=== PATIENT | female | born 1990 | race African-American/Black ===

== ENCOUNTER 2020-09-12 15:58 | Outpatient (REF) | payer MEDICAID, SELFPAY ==
--- NOTE | 2020-09-12 | PFT_ITS ---
Forced vital capacity, FEV1, [id number], and MVV are all normal. Post bronchodilator therapy, no significant change noted. Total lung capacity and residual volume normal. Diffusion capacity normal. CONCLUSION: Normal pulmonary function test. MD APRIL Quigley/MODL / [id number]
== END 2020-09-12 15:59 | disposition home or self-care (01) ==
LOC: HO.RESP 15:58
PROVIDERS: Visit Provider Internal Medicine
DX: J45.909 Unspecified asthma, uncomplicated (principal)
CPT/HCPCS: 94060; 94727; 94729

== ENCOUNTER → 2020-09-25 15:54 | Outpatient (BNVA) | payer MEDICAID, SELFPAY | PROVIDERS: PCP Family Medicine; Visit Provider Internal Medicine | DX: J30.9 Allergic rhinitis, unspecified (principal); J45.909 Unspecified asthma, uncomplicated; G47.33 Obstructive sleep apnea (adult) (pediatric) | CPT/HCPCS: 99212 ==

== ENCOUNTER 2020-09-25 16:30 | Outpatient (REF) | payer MEDICAID, SELFPAY | END 2020-09-25 16:31 | disposition home or self-care (01) | LOC: HO.LAB 16:30 | PROVIDERS: Visit Provider Internal Medicine | DX: Z20.828 Contact with and (suspected) exposure to other viral communicable diseases (principal) | CPT/HCPCS: C9803; U0003 ==

== ENCOUNTER 2020-11-20 14:21 | Emergency (ER) | payer MEDICAID, SELFPAY ==
[2020-11-20 14:33] VITALS: BP 117/72; PULSE 96; RESP 20; TEMP 36.9; O2SAT 97; BMI 38.4
--- NOTE | 2020-11-20 14:46 | XR_ITS ---
EXAMINATION: XR CHEST CLINICAL INFORMATION: Cough, fever COMPARISON: None TECHNIQUE: Portable upright AP view of the chest was obtained. FINDINGS: There is subtle coarsening bronchiolar markings. Questionable small groundglass opacity left perihilar region. Findings may be related to early atypical or viral process. There is no lobar or segmental airspace consolidation or effusion. No volume loss. Costophrenic sulci are well-defined. The heart is normal in size. The hilar and mediastinal contours are unremarkable. XR/XR chest 1V IMPRESSION: Coarsening bronchiolar markings with questionable small groundglass opacity left perihilar region. Findings may be related to early atypical pneumonia or viral process.
--- NOTE | 2020-11-20 15:14 | PC.NURSE ---
PT SITTING AWAITING COVID RESULTS SHE HAD HER CXR NO RESP DISTRESS NOTED. COUGH
--- NOTE | 2020-11-20 15:23 | ED_ITS ---
HPI - General Adult General Chief complaint: General Medical <Rajat Arndt NP - Last Filed: 11/20/20 16:18> Stated complaint: sob <Rajat Arndt NP - Last Filed: 11/20/20 16:18> Time Seen by Provider: 11/20/20 14:46 <Rajat Arndt NP - Last Filed: 11/20/20 16:18> Source: patient <Rajat Arndt NP - Last Filed: 11/20/20 16:18> Mode of arrival: ambulatory <Rajat Arndt NP - Last Filed: 11/20/20 16:18> Limitations: no limitations <Rajat Arndt NP - Last Filed: 11/20/20 16:18> History of Present Illness HPI narrative: 30-year-old female who reports history of asthma, obstructive sleep apnea and seasonal allergies presenting with 3 or 4 days of body aches, cough myalgias states she called her primary care doctor and states has an appointment tomorrow but advised that she needs to come here she could come. States her most bothersome symptom is the body aches. <Rajat Arndt NP - Last Filed: 11/20/20 16:18> Onset (ago): day(s) <Rajat Arndt NP - Last Filed: 11/20/20 16:18> Severity: moderate <Rajat Arndt NP - Last Filed: 11/20/20 16:18> Quality: aching <Rajat Arndt NP - Last Filed: 11/20/20 16:18> Relieving factors: none <Rajat Arndt NP - Last Filed: 11/20/20 16:18> Exacerbating factors: none <Rajat Arndt NP - Last Filed: 11/20/20 16:18> Associated symptoms: cough and fever/chills <Rajat Arndt NP - Last Filed: 11/20/20 16:18> Treatments prior to arrival: none <Rajat Arndt NP - Last Filed: 11/20/20 16:18> Related Data Home medications: Home Medications Medication Instructions Recorded Confirmed clonidine HCl 0.1 mg tablet 0.1 mg PO TID 09/25/20 11/20/20 fluticasone furoate 200 1 inh INHALATION DAILY 09/25/20 11/20/20 mcg-vilanterol 25 mcg/dose inhalation powder hydroxyzine HCl 25 mg tablet 25 mg PO BEDTIME 09/25/20 11/20/20 lurasidone 60 mg tablet 60 mg PO DAILY 09/25/20 11/20/20 methylphenidate HCl 27 mg 27 mg PO DAILY 09/25/20 11/20/20 tablet,extended release 24 hr Previous Rx's Medication Instructions Recorded albuterol sulfate [ProAir HFA] 2 puff INHALATION Q4-6H PRN #8.5 g 11/20/20 azithromycin [Zithromax Z-Yogesh] 250 mg PO DAILY 5 Days #6 tab 11/20/20 doxycycline monohydrate 100 mg PO BID 10 Days #20 cap 11/20/20 prednisone 60 mg PO DAILY 5 Days #15 tab 11/20/20 tolterodine 2 mg capsule,extended 2 mg PO DAILY 30 Days #30 cap 11/21/20 release 24 hr <Rajat Arndt NP - Last Filed: 11/20/20 16:18> Allergies/adverse reactions: Allergies Allergy/AdvReac Type Severity Reaction Status Date / Time amoxicillin [AMOXICILLIN] Allergy Unknown VOMITING Verified 11/21/20 13:41 pollen extracts [POLLEN] Allergy Unknown ITCHY EYES Verified 11/21/20 13:41 <Rajat Arndt NP - Last Filed: 11/20/20 16:18> Review of Systems Review of Systems: Constitutional: No Weight loss, No Fever,+ Chills, No Night Sweats, No Fatigue, No Malaise ENT/Mouth: No Hearing loss, No Ear Pain, + Nasal Congestion, No Sinus Pain, No Hoarseness, No sore throat, No Swallowing Difficulty Eyes: No Eye Pain, No Swelling, No Redness, No Foreign Body, No Discharge, No Vision Changes Cardiovascular: No Chest Pain, No SOB, No Dyspnea on Exertion, No Orthopnea, No Edema, No Palpitations Respiratory: + Cough, No Sputum, No Wheezing, No Dyspnea Gastrointestinal: No Nausea, No Vomiting, No Diarrhea, No Constipation, No abdominal Pain, No Hematochezia, No Melena Genitourinary: no irregular bleeding, No Dysuria, No Urinary Frequency, No Hematuria, No Urinary Incontinence, No Urgency, No Flank Pain Musculoskeletal: No joint pain, + Myalgias, No Joint Swelling Skin: No Skin Lesions, No rash Neuro: No Weakness, No Numbness, No Paresthesias, No Loss of Consciousness, No Dizziness, No Headache Psych: No Social Issues Heme/Lymph: No Bruising, No Bleeding,No Lymphadenopathy Endocrine: No Polyuria, No Polydipsia, No Temperature Intolerance <Rajat Arndt NP - Last Filed: 11/20/20 16:18> Yes all other systems are reviewed and are negative <Rajat Arndt NP - Last Filed: 11/20/20 16:18> [facility] Past Medical History Medical History: Medical History (Updated 11/21/20 @ 14:02 by Andrea Gupta MD) Allergic rhinosinusitis Asthma DAX (obstructive sleep apnea) <Rajat Arndt NP - Last Filed: 11/20/20 16:18> Social History Social History: Social History Smoking Status: Unknown if ever smoked <Rajat Arndt NP - Last Filed: 11/20/20 16:18> Physical Exam Vital Signs: Vital Signs: Last Vital Signs Temp 100.2 F 11/20/20 15:40 Pulse 96 11/20/20 15:40 Resp 20 11/20/20 15:40 BP 123/78 11/20/20 15:40 Pulse Ox 96 11/20/20 15:40 Body Mass Index 38.4 Reviewed <Rajat Arndt NP - Last Filed: 11/20/20 16:18> Vital Signs: Last Vital Signs Temp 100.2 F 11/20/20 15:40 Pulse 96 11/20/20 15:40 Resp 20 11/20/20 15:40 BP 123/78 11/20/20 15:40 Pulse Ox 96 11/20/20 15:40 Body Mass Index 38.4 <Jay Corneluis MD - Last Filed: 11/27/20 09:22> Const: General: cooperative and healthy appearing; No acute distress or intoxicated appearing <Rajat Arndt NP - Last Filed: 11/20/20 16:18> Nutritional Appearance: average body habitus <Rajat Arndt NP - Last Filed: 11/20/20 16:18> Orientation/consciousness: patient oriented x3 <Rajat Arndt NP - Last Filed: 11/20/20 16:18> HENMT: Head: Yes normal to inspection <[facility] Arndt, - Last Filed: 11/20/20 16:18> Ears: hearing grossly normal bilaterally <[facility] Arndt, - Last Filed: 11/20/20 16:18> Eyes: General: appearance normal, both eyes and all related structures <[facility] Hair - Last Filed: 11/20/20 16:18> Visual De La Torre: normal visual de la torre by confrontation <[facility] Hair - Last Filed: 11/20/20 16:18> Neck: Neck: Yes normal visual inspection, No positive Brudzinski's sign, No positive Kernig's sign and No tender <[facility] Hair - Last Filed: 11/20/20 16:18> Thyroid: Thyroid normal <[facility] Hair - Last Filed: 11/20/20 16:18> Chest: Chest palpation & inspection: normal inspection of the chest <[facility] Hiar - Last Filed: 11/20/20 16:18> Resp: Effort & Inspection: normal respiratory effort <[facility] Hair - Last Filed: 11/20/20 16:18> Auscultation: clear to auscultation bilaterally <[facility] Hair - Last Filed: 11/20/20 16:18> Cardio: Jugular venous distension: no JVD <[facility] Hair - Last Filed: 11/20/20 16:18> Rhythm: regular rhythm <[facility] Hair - Last Filed: 11/20/20 16:18> Heart sounds: S1 normal heart sound present and S2 normal heart sound present <[facility] Hair - Last Filed: 11/20/20 16:18> GI: Inspection: Yes normal to inspection <[facility] Hair - Last Filed: 11/20/20 16:18> Percussion: Yes normal to percussion <[facility] Hair - Last Filed: 11/20/20 16:18> Auscultation: normal bowel sounds <[facility] Hair - Last Filed: 11/20/20 16:18> : General: Yes no CVA tenderness <[facility] PAWEL Arndt - Last Filed: 11/20/20 16:18> Back/Spine/Pelvis: Back: no CVA tenderness <Rajatreilly Arndt NP - Last Filed: 11/20/20 16:18> Skin: General skin exam: no rashes or lesions noted <Rajat VegaPAWEL montelongo - Last Filed: 11/20/20 16:18> Neuro: General: patient oriented x3 <Rajatreilly Arndt NP - Last Filed: 11/20/20 16:18> Extrem: General: Yes normal to inspection <Rajat ArndtPAWEL montelongo - Last Filed: 11/20/20 16:18> Course Course Course Narrative: COVID POSITIVE CHEST X-RAY FINDINGS CONSISTENT WITH THIS. SHE IS HEMODYNAMICALLY STABLE. AFEBRILE, NON TACHY, PULSE OX 98%. GIVEN HER UNDERLYING COMORBIDITIES WILL DISCHARGE HOME WITH AZITHROMYCIN/DOXY AND PREDNISONE WITH CLEAR RETURN FOLLOW-UP INSTRUCTIONS. SHE IS COMFORTABLE PLAN. SHE AMBULATED WITHOUT ANY EVIDENCE OF HYPOXIA OR SHORTNESS OF BREATH. CLEAR PRECAUTION RETURN FOLLOW-UP INSTRUCTIONS PROVIDED. [facility]/CDC GUIDELINES FOR QUARANTINE ALSO PROVIDED. STABLE FOR DISCHARGE. <Rajatreilly Arndt NP - Last Filed: 11/20/20 16:18> I have reviewed the chart <Jay Cornelius MD - Last Filed: 11/27/20 09:22> Medical Decision Making Lab Data Labs: Lab Results 11/20/20 Range/Units 14:50 Coronavirus (PCR) POSITIVE A (Negative) Influenza Type A (PCR) NEGATIVE (Negative) Influenza Type B (PCR) NEGATIVE (Negative) RSV RNA Qual (PCR) NEGATIVE (Negative) <Rajatreilly Arndt NP - Last Filed: 11/20/20 16:18> Lab Results 11/20/20 Range/Units 14:50 Coronavirus (PCR) POSITIVE A (Negative) Influenza Type A (PCR) NEGATIVE (Negative) Influenza Type B (PCR) NEGATIVE (Negative) RSV RNA Qual (PCR) NEGATIVE (Negative) <Jay Cornelius MD - Last Filed: 11/27/20 09:22> Imaging Data Chest x-ray: Radiologist's impression: [address] [id number] ReportSigned Patient: Mckenzie RuelasMR#: [id number]: 1990Acct:[id number]/Sex: 30 / FADM Date: 11/20/20Loc: [email or web address].EDAttending Dr: Ordering Physician: Rajat Arndt NP Date of Service: 11/20/20 Procedure(s): XR chest 1V Accession Number(s): [id number] cc: Rajat Arndt NP~ EXAMINATION: XR CHEST CLINICAL INFORMATION: Cough, fever COMPARISON: None TECHNIQUE: Portable upright AP view of the chest was obtained. FINDINGS: There is subtle coarsening bronchiolar markings. Questionable small groundglass opacity left perihilar region. Findings may be related to early atypical or viral process. There is no lobar or segmental airspace consolidation or effusion. No volume loss. Costophrenic sulci are well-defined. The heart is normal in size. The hilar and mediastinal contours are unremarkable. XR/XR chest 1V IMPRESSION: Coarsening bronchiolar markings with questionable small groundglass opacity left perihilar region. Findings may be related to early atypical pneumonia or viral process. Dictated By:JAY ROACH MDSigned By:<Electronically signed by JYA ROACH MD in OV>11/20/20 1504 DD/ 1446TD/TT: Social Work Coordinator: VIVIAN <Rajat Arndt NP - Last Filed: 11/20/20 16:18> Discharge Plan Discharge Clinical Impression: COVID-19 <Rajat Arndt NP - Last Filed: 11/20/20 16:18> Patient Disposition: Home, Self-Care <Rajat Arndt NP - Last Filed: 11/20/20 16:18> Instructions: COVID-19 (Coronavirus Disease 2019) (ED) <Rajat Arndt NP - Last Filed: 11/20/20 16:18> Additional Instructions: Drink plenty of fluids Take medication prescribed Self-isolation Social distancing Quarantine for 14 days Return if any concerns or worsening symptoms Thank you <Rajat Arndt NP - Last Filed: 11/20/20 16:18> Prescriptions: New azithromycin [Zithromax Z-Yogesh] 250 mg tablet 250 mg PO DAILY 5 Days Qty: 6 RF: 0 doxycycline monohydrate 100 mg capsule 100 mg PO BID 10 Days Qty: 20 RF: 0 prednisone 20 mg tablet 60 mg PO DAILY 5 Days Qty: 15 RF: 0 albuterol sulfate [ProAir HFA] 90 mcg/actuation HFA aerosol inhaler 2 puff inhalation Q4-6H PRN (Reason: shortness of breath or wheezing) Qty: 8.5 RF: 0 No Action Breo Ellipta 200-25 mcg/dose blister with device 1 inh inhalation DAILY RF: 0 clonidine HCl 0.1 mg tablet 0.1 mg PO TID RF: 0 hydroxyzine HCl 25 mg tablet 25 mg PO BEDTIME RF: 0 methylphenidate HCl [Concerta] 27 mg tablet extended release 24hr 27 mg PO DAILY RF: 0 Latuda 60 mg tablet 60 mg PO DAILY RF: 0 tolterodine 2 mg capsule,extended release 24hr 2 mg PO DAILY 30 Days Qty: 30 RF: 0 <Rajat Arndt NP - Last Filed: 11/20/20 16:18> Referrals: Betsy Joshi MD [Primary Care Provider] - 5 days (PHONE VISIT) <Rajat Arndt NP - Last Filed: 11/20/20 16:18> Interventions: ED Discharge Assessment Last Done: 11/20/20 16:32 <Rajat Arndt NP - Last Filed: 11/20/20 16:18> Discharge Date/Time: 11/20/20 16:33 <Rajat Arndt NP - Last Filed: 11/20/20 16:18>
[2020-11-20 15:40] VITALS: BP 123/78; PULSE 96; RESP 20; TEMP 37.9; O2SAT 96
[2020-11-20 15:51] LABS: Influenza A PCR NEGATIVE (Negative); Influenza B PCR NEGATIVE (Negative); Resp Syncy Virus RNA Qual PCR NEGATIVE (Negative); SARS COV2 PCR INHOUSE POSITIVE (Negative)
[2020-11-20] MEDS: predniSONE 20 MG TABLET 60 MG PO (16:28)
[2020-11-20] MEDS: Acetaminophen 325 MG TABLET 975 MG PO (16:28)
== END 2020-11-20 16:33 | disposition home or self-care (01) ==
PROVIDERS: Nurse Practitioner Primary Care; Emergency Provider Emergency Medicine; PCP Family Medicine
DX: U07.1 COVID-19 (principal); R06.02 Shortness of breath; M79.10 Myalgia, unspecified site; R50.9 Fever, unspecified; Z79.899 Other long term (current) drug therapy
CPT/HCPCS: 0241U; 36415; 71045; 99283; 99284

== ENCOUNTER → 2020-11-21 13:40 | Outpatient (BNVA) | payer MEDICAID, SELFPAY | PROVIDERS: PCP Family Medicine; Visit Provider Urology ==

== ENCOUNTER → 2020-12-17 12:13 | Outpatient (BNVA) | payer MEDICAID, SELFPAY | PROVIDERS: PCP Family Medicine; Visit Provider Urology ==

== ENCOUNTER → 2021-01-15 13:36 | Outpatient (BNVA) | payer MEDICAID, SELFPAY | PROVIDERS: PCP Emergency Medicine; Visit Provider Urology ==

== ENCOUNTER 2021-02-25 17:43 | Emergency (ER) | payer MEDICAID, SELFPAY ==
--- NOTE | ~2021-02-25 | XR_ITS ---
EXAMINATION: XR RIBS, RIGHT CLINICAL INFORMATION: Pain COMPARISON: Chest x-ray 11/20/2020 TECHNIQUE: 3 views of the right ribs were obtained. FINDINGS: Cardiac silhouette is normal in size. The lungs are well aerated. There is no lobar consolidation. No pleural effusion or pneumothorax. Mild dextroscoliosis of the thoracic spine. No right-sided rib fracture appreciated. XR/XR ribs RT min 3V w CXR1V IMPRESSION: No right-sided rib fracture.
[2021-02-25 17:56] VITALS: BP 106/66; PULSE 77; RESP 18; TEMP 36.2; O2SAT 97; BMI 38.9
--- NOTE | 2021-02-25 18:06 | ED_ITS ---
HPI - General Adult General Chief complaint: General Medical Stated complaint: R Rib/Shoulder Pain No Injury Time Seen by Provider: 02/25/21 18:06 Source: patient Mode of arrival: ambulatory Limitations: no limitations History of Present Illness HPI narrative: States ache like ?rib pain? for the past 2 days hurts with certain movements and palpation. has had similar episodes in the past and was told that is muscle related. She admits that she is overweight and has large breasts which are contributing factor to her symptoms. She denies any shortness of breath, control use, , leg swelling or injury. Onset (ago): day(s) Radiation: non-radiation Severity: moderate Quality: aching Relieving factors: immobilization Exacerbating factors: movement Associated symptoms: denies other symptoms Treatments prior to arrival: none Related Data Home Medications Medication Instructions Recorded Confirmed clonidine HCl 0.1 mg tablet 0.1 mg PO TID 09/25/20 11/20/20 fluticasone furoate 200 1 inh INHALATION DAILY 09/25/20 11/20/20 mcg-vilanterol 25 mcg/dose inhalation powder hydroxyzine HCl 25 mg tablet 25 mg PO BEDTIME 09/25/20 11/20/20 lurasidone 60 mg tablet 60 mg PO DAILY 09/25/20 11/20/20 methylphenidate HCl 27 mg 27 mg PO DAILY 09/25/20 11/20/20 tablet,extended release 24 hr Previous Rx's Medication Instructions Recorded albuterol sulfate [ProAir HFA] 2 puff INHALATION Q4-6H PRN #8.5 g 11/20/20 azithromycin [Zithromax Z-Yogesh] 250 mg PO DAILY 5 Days #6 tab 11/20/20 doxycycline monohydrate 100 mg PO BID 10 Days #20 cap 11/20/20 prednisone 60 mg PO DAILY 5 Days #15 tab 11/20/20 tolterodine 4 mg capsule,extended 4 mg PO DAILY 90 Days #90 cap 01/15/21 release 24 hr cyclobenzaprine 5 mg PO TID PRN #14 tab 02/25/21 ibuprofen 800 mg PO Q8H PRN #30 tab 02/25/21 lidocaine 1 patch TOPICAL Q24H PRN #15 ea 02/25/21 Allergies Allergy/AdvReac Type Severity Reaction Status Date / Time amoxicillin [AMOXICILLIN] Allergy Unknown VOMITING Verified 02/25/21 17:56 pollen extracts [POLLEN] Allergy Unknown ITCHY EYES Verified 02/25/21 17:56 Review of Systems Review of Systems: Constitutional: No Weight loss, No Fever, No Chills, No Night Sweats, No Fatigue, No Malaise ENT/Mouth: No Hearing loss, No Ear Pain, No Nasal Congestion, No Sinus Pain, No Hoarseness, No sore throat, No Rhinorrhea, No Swallowing Difficulty Eyes: No Eye Pain, No Swelling, No Redness, No Foreign Body, No Discharge, No Vision Changes Cardiovascular: No SOB, No Dyspnea on Exertion, No Orthopnea, No Edema, No Palpitations Respiratory: No Cough, No Sputum, No Wheezing, No Smoke Exposure, No Dyspnea Gastrointestinal: No Nausea, No Vomiting, No Diarrhea, No Constipation, No abdominal Pain, No Hematochezia, No Melena Genitourinary: no irregular bleeding, No Dysuria, No Urinary Frequency, No Hematuria, No Urinary Incontinence, No Urgency, No Flank Pain, No Urinary Flow Changes, No Hesitancy Musculoskeletal: No joint pain, No Myalgias, No Joint Swelling, as read per HPI Skin: No Skin Lesions, No rash Neuro: No Weakness, No Numbness, No Paresthesias, No Loss of Consciousness, No Dizziness, No Headache Psych: No Anxiety/Panic, No Depression, No SI/HI/AH/VH, No Social Issues Heme/Lymph: No Bruising, No Bleeding,No Lymphadenopathy Endocrine: No Polyuria, No Polydipsia, No Temperature Intolerance Yes all other systems are reviewed and are negative [facility] Past Medical History Medical History Allergic rhinosinusitis Asthma DAX (obstructive sleep apnea) Social History Social History Alcohol intake: never Smoking Status: Unknown if ever smoked Smoked in Last 30 Days: No Use of substances other than those prescribed or required for medical reasons: No Any prior treatment program specific to substance use: No Advance Directives: No Advance Directives Information Provided: Yes Physical Exam Vital Signs: Vital Signs: Last Vital Signs Temp 97.2 F 02/25/21 17:56 Pulse 77 02/25/21 17:56 Resp 18 02/25/21 17:56 BP 106/66 02/25/21 17:56 Pulse Ox 97 05/04/21 17:56 Body Mass Index 38.9 Reviewed Const: General: cooperative and healthy appearing; No acute distress or i ntoxicated appearing Nutritional Appearance: average body habitus Orientation/consciousness: patient oriented x3 HENMT: Head: Yes normal to inspection Ears: hearing grossly normal bilaterally Eyes: General: appearance normal, both eyes and all related structures Visual De La Torre: normal visual de la torre by confrontation Neck: Neck: Yes normal visual inspection, No positive Brudzinski's sign, No positive Kernig's sign and No tender Thyroid: Thyroid normal Chest: Chest palpation & inspection: normal inspection of the chest Chest/axillae images: 1. Pain with tender palpation. No ecchymosis, rash, cre pitus. Pain alleviated with rest and elicited with movement. Resp: Effort & Inspection: normal respiratory effort Cardio: Jugular venous distension: no JVD GI: Inspection: Yes normal to inspection Percussion: Yes normal to percussion Auscultation: normal bowel sounds : General: Yes no CVA tenderness Back/Spine/Pelvis: Back: no CVA tenderness Skin: General skin exam: no rashes or lesions noted Neuro: General: patient oriented x3 Extrem: General: Yes normal to inspection Course Course Course Narrative: Assessment and plan; findings consistent with acute costochondritis x-ray without acute findings EKG no specific changes feels better after Toradol and lidocaine patch will discharge home with short course NSAID, lidocaine patch and Flexeril. She does have a demanding job she does a lot a lifting and moving is requesting note for this. She will follow-up with her primary care doctor. Medical Decision Making Imaging Data Chest x-ray: Radiologist's impression: [address] [id number] ReportSigned Patient: Mckenzie RuelasMR#: [id number]: 1990Acct:[id number]/Sex: 30 / FADM Date: 02/25/21Loc: [address] Dr: Ordering Physician: Rajat Arndt NP Date of Service: 02/25/21 Procedure(s): XR ribs RT min 3V w CXR1V Accession Number(s): [id number] cc: Arndt,Rajat [employer]ER~ EXAMINATION: XR RIBS, RIGHT CLINICAL INFORMATION: Pain COMPARISON: Chest x-ray 11/20/2020 TECHNIQUE: 3 views of the right ribs were obtained. FINDINGS: Cardiac silhouette is normal in size. The lungs are well aerated. There is no lobar consolidation. No pleural effusion or pneumothorax. Mild dextroscoliosis of the thoracic spine. No right-sided rib fracture appreciated. XR/XR ribs RT min 3V w CXR1V IMPRESSION: No right-sided rib fracture. Dictated By:NAHID HUGHES MDSigned By:<Electronically signed by NAHID HUGHES MD in [place]>02/25/211856 DD/ TD/TT: Structural Architect: ECG Data Interpretation: Normal sinus rhythm with sinus arrhythmia T wave abnormality, consider anterior ischemia Abnormal ECG When compared with ECG of 11-APR-2020 13:31, No significant change was found Discharge Plan Discharge Clinical Impression: Muscle strain Patient Disposition: Home, Self-Care Instructions: Costochondritis (ED) Additional Instructions: Gentle stretching Wear supportive bra Warm compresses Take medication prescribed Return if any fever, cough, worsening chest pain, shortness of breath, lower extremity swelling, abdominal pain, nausea, vomiting, headache or dizziness. Otherwise follow-up with primary care to discuss Thank you Prescriptions: New lidocaine 4 % adhesive patch,medicated 1 patch topical Q24H PRN (Reason: pain) Qty: 15 RF: 0 ibuprofen 800 mg tablet 800 mg PO Q8H PRN (Reason: pain) Qty: 30 RF: 0 cyclobenzaprine 5 mg tablet 5 mg PO TID PRN (Reason: muscle spasm) Qty: 14 RF: 0 No Action azithromycin [Zithromax Z-Yogesh] 250 mg tablet 250 mg PO DAILY 5 Days Qty: 6 RF: 0 doxycycline monohydrate 100 mg capsule 100 mg PO BID 10 Days Qty: 20 RF: 0 prednisone 20 mg tablet 60 mg PO DAILY 5 Days Qty: 15 RF: 0 albuterol sulfate [ProAir HFA] 90 mcg/actuation HFA aerosol inhaler 2 puff inhalation Q4-6H PRN (Reason: shortness of breath or wheezing) Qty: 8.5 RF: 0 Breo Ellipta 200-25 mcg/dose blister with device 1 inh inhalation DAILY RF: 0 clonidine HCl 0.1 mg tablet 0.1 mg PO TID RF: 0 hydroxyzine HCl 25 mg tablet 25 mg PO BEDTIME RF: 0 methylphenidate HCl [Concerta] 27 mg tablet extended release 24hr 27 mg PO DAILY RF: 0 Latuda 60 mg tablet 60 mg PO DAILY RF: 0 tolterodine 4 mg capsule,extended release 24hr 4 mg PO DAILY 90 Days Qty: 90 RF: 1 Referrals: Betsy Joshi MD [Primary Care Provider] - 1 week Stand Alone Forms: Work/School Release
--- NOTE | 2021-02-25 18:11 | ECG_ITS ---
Test Reason : Right-sided upper chest/posterior neck pain Blood Pressure : / mmHG Vent. Rate : 061 BPM Atrial Rate : 061 BPM P-R Int : 140 ms QRS Dur : 100 ms QT Int : 426 ms P-R-T Axes : 049 015 009 degrees QTc Int : 428 ms Normal sinus rhythm with sinus arrhythmia T wave abnormality, consider anterior ischemia Abnormal ECG When compared with ECG of 11-APR-2020 13:31, No significant change was found Referred By: Rajat Arndt Electronically Signed By:GABE SOUZA
[2021-02-25] MEDS: Lidocaine 4 % Patch ADH..PATCH 1 PATCH TRANSDERMA (18:28)
[2021-02-25] MEDS: Ketorolac Tromethamine 30 MG/ML VIAL IM (18:29)
== END 2021-02-25 19:30 | disposition home or self-care (01) ==
PROVIDERS: Emergency Provider Internal Medicine; PCP Family Medicine
DX: S29.011A Strain of muscle and tendon of front wall of thorax, initial encounter (principal); X58.XXXA Exposure to other specified factors, initial encounter; Y93.9 Activity, unspecified; Y92.9 Unspecified place or not applicable; Y99.9 Unspecified external cause status
CPT/HCPCS: 71101; 93005; 96372; 99284; J1885

== ENCOUNTER 2021-03-10 16:26 | Outpatient (REF) | payer MEDICAID, SELFPAY ==
--- NOTE | ~2021-03-10 | XR_ITS ---
EXAMINATION: XR WRIST, RIGHT CLINICAL INFORMATION: Right wrist pain. No trauma COMPARISON: None TECHNIQUE: PA, lateral, and oblique views of the right wrist. FINDINGS: There is no visible acute fracture, dislocation or subluxation seen. The intercarpal, radiocarpal and carpometacarpal alignment is normal. The soft tissues are normal. XR/XR wrist RT min 3V IMPRESSION: Unremarkable right hand/wrist exam.
== END 2021-03-10 16:27 | disposition home or self-care (01) ==
LOC: HO.XRAY 16:26
PROVIDERS: PCP Family Medicine; Visit Provider Nurse Practitioner
DX: M25.531 Pain in right wrist (principal)
CPT/HCPCS: 73110

== ENCOUNTER 2021-07-18 17:41 | Emergency (ER) | payer MEDICAID, SELFPAY ==
--- NOTE | ~2021-07-18 | XR_ITS ---
EXAMINATION: XR CHEST CLINICAL INFORMATION: Coughing. COMPARISON: Chest radiograph dated from 11/20/2020. TECHNIQUE: AP view of the chest was obtained. FINDINGS: Normal appearance of the cardiomediastinal silhouette. There is persistent interstitial prominence with now new questionable hazy opacities in the right lower lobe. No pleural effusions or pneumothorax. No acute osseous abnormalities. XR/XR chest 1V IMPRESSION: Questionable hazy opacities in the right lung base which could be related with aspiration or pneumonia in the appropriate clinical setting. Otherwise, there is diffuse interstitial prominence not significantly changed since October 2020.
[2021-07-18 19:24] VITALS: BP 145/64; PULSE 76; RESP 16; TEMP 35.5; O2SAT 98; BMI 30.4
--- NOTE | 2021-07-18 19:56 | ED_ITS ---
HPI - Abdominal Pain General Chief Complaint: Abdominal Pain Stated Complaint: ABD PAIN Time Seen by Provider: 07/18/21 19:54 Source: patient Mode of arrival: ambulatory Limitations: no limitations History of Present Illness HPI narrative: 31 years old female came in for evaluation of abdominal pain. Abdominal pain started 2 days ago as a gradual onset, localized to the left upper abdomen/epigastric area with no radiation, described as intermittent pain, moderate 5/10, pain is worsening with food, associated with nausea and vomiting. No fever or chills. Patient was recently seen by her PCP for cough, patient recently tested negative for COVID, patient was treated for bronchitis with azithromycin/prednisone (patient still receiving a treatment). Related Data Home Medications Medication Instructions Recorded Confirmed clonidine HCl 0.1 mg tablet 0.1 mg PO TID 09/25/20 11/20/20 fluticasone furoate 200 1 inh INHALATION DAILY 09/25/20 11/20/20 mcg-vilanterol 25 mcg/dose inhalation powder (Breo Ellipta) hydroxyzine HCl 25 mg tablet 25 mg PO BEDTIME 09/25/20 11/20/20 lurasidone 60 mg tablet (Latuda) 60 mg PO DAILY 09/25/20 11/20/20 methylphenidate HCl 27 mg 27 mg PO DAILY 09/25/20 11/20/20 tablet,extended release 24 hr (Concerta) Previous Rx's Medication Instructions Recorded albuterol sulfate 90 mcg/actuation 2 puff INHALATION Q4-6H PRN #8.5 g 11/20/20 aerosol inhaler (ProAir HFA) azithromycin 250 mg tablet 250 mg PO DAILY 5 Days #6 tab 11/20/20 (Zithromax Z-Yogesh) doxycycline monohydrate 100 mg 100 mg PO BID 10 Days #20 cap 11/20/20 capsule prednisone 20 mg tablet 60 mg PO DAILY 5 Days #15 tab 11/20/20 tolterodine 4 mg capsule,extended 4 mg PO DAILY 90 Days #90 cap 01/15/21 release 24 hr cyclobenzaprine 5 mg tablet 5 mg PO TID PRN #14 tab 02/25/21 ibuprofen 800 mg tablet 800 mg PO Q8H PRN #30 tab 02/25/21 lidocaine 4 % topical patch 1 patch TOPICAL Q24H PRN #15 ea 02/25/21 azithromycin 250 mg tablet See Rx Instructions .ROUTE 07/18/21 (Zithromax Z-Yogesh) .COMPLEX #6 tab omeprazole magnesium 20 mg 20 mg PO BID #30 tab 07/18/21 tablet,delayed release (Prilosec OTC) Allergies Allergy/AdvReac Type Severity Reaction Status Date / Time amoxicillin [AMOXICILLIN] Allergy Unknown VOMITING Verified 02/25/21 17:56 pollen extracts [POLLEN] Allergy Unknown ITCHY EYES Verified 02/25/21 17:56 Review of Systems Review of Systems All other systems are reviewed and are negative Constitutional: Reports as per HPI and Reports no additional constitutional complaints Eyes: Reports as per HPI and Reports no additional eye complaints Reports system reviewed and no additional complaints, except as documented Cardiovascular: Reports as per HPI and Reports no additional cardiovascular complaints Respiratory: Reports as per HPI and Reports no additional respiratory complaints Gastrointestinal: Reports as per HPI and Reports no additional gastrointestinal complaints Genitourinary: Reports no additional female genitourinary complaints Musculoskeletal: Reports no additional musculoskeletal complaints Skin/Breast: Reports system reviewed and no additional complaints, except as docu Psychiatric: Reports no additional psychiatric complaints Endocrine: Reports no additional endocrine complaints Hematologic/Lymphatic: Reports no additional hematologic/lymphatic complaints Allergic/Immunologic: Reports no additional allergic/immunologic complaints Reports system reviewed and no additional complaints, except as documented and Reports Abnormal speech present Physical Exam Vital Signs: Vital Signs: Last Vital Signs Temp 98.5 F 07/18/21 21:26 Pulse 60 07/18/21 21:26 Resp 18 07/18/21 21:26 BP 132/91 H 07/18/21 21:26 Pulse Ox 97 07/18/21 21:26 Body Mass Index 30.4 Course Course Course Narrative: Assessment and plan. Patient presented with coughing was diagnosed by her primary doctor with bronchitis patient was put on azithromycin and prednisone, chest x-ray today showed small possible right lung pneumonia. Patient still taking azithromycin will add another course of azithromycin. Abdominal pain which is likely secondary to gastritis, patient is feeling better, feels hungry with good appetite, able to tolerate p.o. intake. Will discharge the patient with follow-up with PCP. MDM - Abdominal Pain Lab Data Attestation: I reviewed the patient's lab results. Result diagrams: 07/18/21 20:16 07/18/21 20:16 Labs: Lab Results 09/24/21 09/24/21 09/24/21 Range/Units 20:15 20:16 20:16 WBC 11.9 H (4.8-10.8) X10*3/uL RBC 4.75 (4.20-5.50) X10*6/uL Hgb 14.9 (12.0-16.0) g/dl Hct 44.4 (37-47) % MCV 93.5 (80-98) fL MCH 31.4 (27.0-33.0) pg MCHC 33.6 (31.0-35.0) g/dl RDW 13.4 (11.0-16.0) % Plt Count 261 (160-400) X10*3/uL MPV 11.1 (9.4-12.3) fL Immature Gran % (Auto) 0.7 H (0.0-0.4) % Neut % (Auto) 74.6 H (45-73) % Lymph % (Auto) 19.2 L (20-40) % [place] % (Auto) 5.3 (2-11) % Eos % (Auto) 0.0 (0-4) % Baso % (Auto) 0.2 (0-2) % Lymph # (Auto) 2.3 (1.2-4.9) X10*3/uL [place] # (Auto) 0.6 (0.1-1.2) X10*3/uL Eos # (Auto) 0.0 (0.0-0.4) X10*3/uL Baso # (Auto) 0.0 (0.0-0.2) X10*3/uL Abs Immat Gran (auto) 0.08 H (0.00-0.03) X10*3/uL Absolute Neuts (auto) 8.9 H (2.0-8.3) X10*3/uL Absolute Nucleated RBC 0.000 (0.0-0.012) X10*3/uL Nucleated RBC % (auto) 0.0 (0.0-0.2) /100WBC Sodium 139 (135-145) mmol/L Potassium 4.5 (3.3-5.1) mmol/L Chloride 109 H (96-108) mmol/L Carbon Dioxide 19 L (22-29) mmol/L Anion Gap 16 (12-20) BUN 13 (9-16) mg/dL Creatinine 0.81 (0.5-1.4) mg/dL Estim Creat Clear Calc 116.4 Estimated GFR > 60 Random Glucose 119 H (60-115) mg/dL Calcium 9.4 (8.4-10.2) mg/dL Total Bilirubin 0.4 (0.0-1.0) mg/dL AST 20 (5-31) U/L ALT 34 H (0-31) U/L Alkaline Phosphatase 84 (39-117) U/L Total Protein 7.8 (6.5-8.0) g/dL Albumin 4.6 (3.5-5.0) g/dL Urine Color Urine Appearance Urine pH (5.0-8.0) Ur Specific [place] (1.005-1.025) Urine Protein (NEG-TRACE) MG/DL Urine Glucose (UA) (NEG) MG/DL Urine Ketones (NEG) MG/DL Urine Blood (NEG) Urine Nitrite (NEG) Ur Leukocyte Esterase (NEG) Urine RBC (0) /HPF Urine WBC (0-4) /HPF Ur Squamous Epith Cells /LPF Urine Bacteria /LPF Urine Test NEGATIVE (NEGATIVE) 07/18/21 Range/Units 20:16 WBC (4.8-10.8) X10*3/uL RBC (4.20-5.50) X10*6/uL Hgb (12.0-16.0) g/dl Hct (37-47) % MCV (80-98) fL MCH (27.0-33.0) pg MCHC (31.0-35.0) g/dl RDW (11.0-16.0) % Plt Count (160-400) X10*3/uL MPV (9.4-12.3) fL Immature Gran % (Auto) (0.0-0.4) % Neut % (Auto) (45-73) % Lymph % (Auto) (20-40) % [place] % (Auto) (2-11) % Eos % (Auto) (0-4) % Baso % (Auto) (0-2) % Lymph # (Auto) (1.2-4.9) X10*3/uL [place] # (Auto) (0.1-1.2) X10*3/uL Eos # (Auto) (0.0-0.4) X10*3/uL Baso # (Auto) (0.0-0.2) X10*3/uL Abs Immat Gran (auto) (0.00-0.03) X10*3/uL Absolute Neuts (auto) (2.0-8.3) X10*3/uL Absolute Nucleated RBC (0.0-0.012) X10*3/uL Nucleated RBC % (auto) (0.0-0.2) /100WBC Sodium (135-145) mmol/L Potassium (3.3-5.1) mmol/L Chloride (96-108) mmol/L Carbon Dioxide (22-29) mmol/L Anion Gap (12-20) BUN (9-16) mg/dL Creatinine (0.5-1.4) mg/dL Estim Creat Clear Calc Estimated GFR Random Glucose (60-115) mg/dL Calcium (8.4-10.2) mg/dL Total Bilirubin (0.0-1.0) mg/dL AST (5-31) U/L ALT (0-31) U/L Alkaline Phosphatase (39-117) U/L Total Protein (6.5-8.0) g/dL Albumin (3.5-5.0) g/dL Urine Color STRAW Urine Appearance CLEAR Urine pH 6.5 (5.0-8.0) Ur Specific [place] 1.015 (1.005-1.025) Urine Protein NEG (NEG-TRACE) MG/DL Urine Glucose (UA) NEG (NEG) MG/DL Urine Ketones NEG (NEG) MG/DL Urine Blood TRACE (NEG) Urine Nitrite NEG (NEG) Ur Leukocyte Esterase NEG (NEG) Urine RBC 1-4 (0) /HPF Urine WBC 0 (0-4) /HPF Ur Squamous Epith Cells NONE /LPF Urine Bacteria 1+ /LPF Urine Test (NEGATIVE) Imaging Data Chest x-ray: Radiologist's impression: Questionable hazy opacities in the right lung base which could be related with aspiration or pneumonia in the appropriate clinical setting. Otherwise, there is diffuse interstitial prominence not significantly changed since October 2020. ? Discharge Plan Discharge Clinical Impression: Pneumonia Qualifiers: Pneumonia type: due to unspecified organism Laterality: right Gastritis Qualifiers: Gastritis type: unspecified gastritis Chronicity: acute Gastritis bleeding: without bleeding Qualified Code(s): K29.00 - Acute gastritis without bleeding Patient Disposition: Home, Self-Care Instructions: Bacterial Pneumonia (ED) Prescriptions: New azithromycin [Zithromax Z-Yogesh] 250 mg tablet See Rx Instructions .ROUTE .COMPLEX Qty: 6 RF: 0 omeprazole magnesium [Prilosec OTC] 20 mg tablet,delayed release (DR/EC) 20 mg PO BID Qty: 30 RF: 0 No Action lidocaine 4 % adhesive patch,medicated 1 patch topical Q24H PRN (Reason: pain) Qty: 15 RF: 0 ibuprofen 800 mg tablet 800 mg PO Q8H PRN (Reason: pain) Qty: 30 RF: 0 cyclobenzaprine 5 mg tablet 5 mg PO TID PRN (Reason: muscle spasm) Qty: 14 RF: 0 azithromycin [Zithromax Z-Yogesh] 250 mg tablet 250 mg PO DAILY 5 Days Qty: 6 RF: 0 doxycycline monohydrate 100 mg capsule 100 mg PO BID 10 Days Qty: 20 RF: 0 prednisone 20 mg tablet 60 mg PO DAILY 5 Days Qty: 15 RF: 0 albuterol sulfate [ProAir HFA] 90 mcg/actuation HFA aerosol inhaler 2 puff inhalation Q4-6H PRN (Reason: shortness of breath or wheezing) Qty: 8.5 RF: 0 Breo Ellipta 200-25 mcg/dose blister with device 1 inh inhalation DAILY RF: 0 clonidine HCl 0.1 mg tablet 0.1 mg PO TID RF: 0 hydroxyzine HCl 25 mg tablet 25 mg PO BEDTIME RF: 0 methylphenidate HCl [Concerta] 27 mg tablet extended release 24hr 27 mg PO DAILY RF: 0 Latuda 60 mg tablet 60 mg PO DAILY RF: 0 tolterodine 4 mg capsule,extended release 24hr 4 mg PO DAILY 90 Days Qty: 90 RF: 1 Referrals: Physician,Unknown [Primary Care Provider] - 2 days PMF Past Medical History Medical History Allergic rhinosinusitis Asthma DAX (obstructive sleep apnea) Social History Social History Alcohol intake: never Advance Directives: No Advance Directives Information Provided: No
[2021-07-18] MEDS: Famotidine/PF 20 MG/2 ML VIAL IVPUSH (20:24)
[2021-07-18] MEDS: Magnesium Hydrox/Alum Hydrox 30 ML ORAL.SUSP PO (20:24)
[2021-07-18] MEDS: 0.9 % Sodium Chloride 1,000 ML 999 ML IVCONT (20:29)
[2021-07-18 20:32] LABS: MANUAL DIFF FLAG NO
[2021-07-18 20:33] LABS: Basophils Percent Auto 0.2 % (0-2); Hematocrit 44.4 % (37-47); Hemoglobin 14.9 g/dl (12.0-16.0); Imm Gran Abs Auto 0.08 X10*3/uL (0.00-0.03); Imm Gran Pct Auto 0.7 % (0.0-0.4); Lymphocytes Absolute Auto 2.3 X10*3/uL (1.2-4.9); Lymphocytes Percent Auto 19.2 % (20-40); Mean Corpuscular HGB Conc 33.6 g/dl (31.0-35.0); Mean Corpuscular Hemoglobin 31.4 pg (27.0-33.0); Mean Corpuscular Volume 93.5 fL (80-98); Mean Platelet Volume 11.1 fL (9.4-12.3); Monocytes Absolute Auto 0.6 X10*3/uL (0.1-1.2); Monocytes Percent Auto 5.3 % (2-11); Neutrophils Absolute Auto 8.9 X10*3/uL (2.0-8.3); Neutrophils Percent Auto 74.6 % (45-73); Platelet Count 261 X10*3/uL (160-400); Red Blood Count 4.75 X10*6/uL (4.20-5.50); Red Cell Distribution Width 13.4 % (11.0-16.0); White Blood Count 11.9 X10*3/uL (4.8-10.8)
[2021-07-18 20:34] LABS: Appearance Urine CLEAR; Color Urine STRAW; Glucose Urine UA NEG (NEG); Leukocyte Esterase Urine NEG (NEG); Nitrite Urine NEG (NEG); PH 6.5 (5.0-8.0); Specific Gravity - Urine 1.015 (1.005-1.025); UACC Culture Trigger NO; Urine Blood TRACE (NEG); Urine Ketones NEG (NEG); Urine Protein NEG (NEG-TRACE)
--- NOTE | 2021-07-18 20:34 | PC.NURSE ---
IV PLACED TO LAC, LABS DRAWN TO LAB, PT UP TO RESTROOM FOR URINE SAMPLE TO LAB. NS AND PEPCID UP AND RUNNING PER EMAR FOR ABD PAIN. PT TOOK PO MEDS ALSO WITHOUT DIFFICULTY. PT AWAIITNG FOR FURTHER ORDERS. WARM BLK TO PT AND PT WATCHING TV AT THIS TIME AND APPEARS TO BE COMFY.
[2021-07-18 20:35] LABS: UPreg QC Valid YES; Urine Pregnancy NEGATIVE (NEGATIVE)
[2021-07-18 20:43] LABS: Bacteria Urine 1+ /LPF; WBC Urine 0 /HPF (0-4)
[2021-07-18 20:55] LABS: Alanine Aminotransferase 34 U/L (0-31); Albumin Level 4.6 g/dL (3.5-5.0); Alkaline Phosphatase 84 U/L (39-117); Anion Gap 16 (12-20); Aspartate Amino Transferase 20 U/L (5-31); Bilirubin Total 0.4 mg/dL (0.0-1.0); Blood Urea Nitrogen 13 mg/dL (9-16); Calcium 9.4 mg/dL (8.4-10.2); Carbon Dioxide 19 mmol/L (22-29); Chloride 109 mmol/L (96-108); Creatinine Clr Calc Pharmacy 116.4; Estimated Glomerular Filt Rate > 60; Glucose Random 119 mg/dL (60-115); Potassium 4.5 mmol/L (3.3-5.1); Sodium 139 mmol/L (135-145); Total Protein 7.8 g/dL (6.5-8.0)
[2021-07-18 21:26] VITALS: BP 132/91; PULSE 60; RESP 18; TEMP 36.9; O2SAT 97
== END 2021-07-18 22:48 | disposition home or self-care (01) ==
PROVIDERS: Emergency Provider Emergency Medicine
DX: J15.9 Unspecified bacterial pneumonia (principal); K29.00 Acute gastritis without bleeding; R10.9 Unspecified abdominal pain; Z79.899 Other long term (current) drug therapy
CPT/HCPCS: 36415; 71045; 80053; 81001; 81025; 85025; 99284

== ENCOUNTER 2021-07-19 21:03 | Emergency (ER) | payer MEDICAID, SELFPAY ==
[2021-07-19 21:29] VITALS: BP 117/75; PULSE 84; RESP 17; TEMP 36.8; O2SAT 95; BMI 38.9
[2021-07-19 21:57] LABS: Appearance Urine CLEAR; Color Urine YELLOW; Glucose Urine UA NEG (NEG); Leukocyte Esterase Urine NEG (NEG); Nitrite Urine NEG (NEG); UACC Culture Trigger NO; Urine Blood TRACE (NEG); Urine Ketones NEG (NEG); Urine Protein NEG (NEG-TRACE)
[2021-07-19 22:42] LABS: Mucus Urine 1+ /LPF; Squamous Epithelial Cell Urine 1+ /LPF; WBC Urine 0-2 /HPF (0-4)
--- NOTE | 2021-07-20 00:04 | ED.ABDPAIN ---
HPI - Abdominal Pain General Chief Complaint: Abdominal Pain Stated Complaint: Abdominal pain Time Seen by Provider: 07/19/21 23:43 Source: patient Mode of arrival: ambulatory Limitations: no limitations History of Present Illness HPI narrative: 31-year-old female who presents emergency department for evaluation of abdominal pain. The patient states she has been having abdominal pain on off for 3 weeks. She points to her epigastric area and left upper quadrant when asked so excise the pain. She states the pain comes on only after eating food. She states that after eating she immediately gets pain that she describes as an ?indigestion, the pain will last about 1-2 hours and is 8/10 at its worst. She states that she also has associated nausea with no vomiting. She denied any change in her bowel movements, frequency urgency or dysuria. The patient does have a cough which is productive. The patient was treated recently with antibiotics and prednisone for bronchitis. The patient was seen here in the emergency department yesterday with similar complaints. A laboratory evaluation yesterday [place] [address], normal H&H, unremarkable CMP. She had a chest x-ray revealed a hazy opacity in the right lung base consistent with possible pneumonia. The patient was diagnosed with gastritis and pneumonia. She was given another course of antibiotics advised to take Prilosec for her gastritis. She states that the Prilosec is an [id number] medication and she can not afford this medication therefore she is not taking any medicines for her gastritis. Related Data Home Medications Medication Instructions Recorded Confirmed clonidine HCl 0.1 mg tablet 0.1 mg PO TID 09/25/20 11/20/20 fluticasone furoate 200 1 inh INHALATION DAILY 09/25/20 11/20/20 mcg-vilanterol 25 mcg/dose inhalation powder (Breo Ellipta) hydroxyzine HCl 25 mg tablet 25 mg PO BEDTIME 09/25/20 11/20/20 lurasidone 60 mg tablet (Latuda) 60 mg PO DAILY 09/25/20 11/20/20 methylphenidate HCl 27 mg 27 mg PO DAILY 09/25/20 11/20/20 tablet,extended release 24 hr (Concerta) Previous Rx's Medication Instructions Recorded albuterol sulfate 90 mcg/actuation 2 puff INHALATION Q4-6H PRN #8.5 g 01/27/21 aerosol inhaler (ProAir HFA) azithromycin 250 mg tablet 250 mg PO DAILY 5 Days #6 tab 11/20/20 (Zithromax Z-Yogesh) doxycycline monohydrate 100 mg 100 mg PO BID 10 Days #20 cap 11/20/20 capsule prednisone 20 mg tablet 60 mg PO DAILY 5 Days #15 tab 11/20/20 tolterodine 4 mg capsule,extended 4 mg PO DAILY 90 Days #90 cap 01/15/21 release 24 hr cyclobenzaprine 5 mg tablet 5 mg PO TID PRN #14 tab 02/25/21 ibuprofen 800 mg tablet 800 mg PO Q8H PRN #30 tab 02/25/21 lidocaine 4 % topical patch 1 patch TOPICAL Q24H PRN #15 ea 02/25/21 azithromycin 250 mg tablet See Rx Instructions .ROUTE 07/18/21 (Zithromax Z-Yogesh) .COMPLEX #6 tab omeprazole magnesium 20 mg 20 mg PO BID #30 tab 07/18/21 tablet,delayed release (Prilosec OTC) omeprazole 20 mg tablet,delayed 20 mg PO DAILY #30 tab 07/20/21 release Allergies Allergy/AdvReac Type Severity Reaction Status Date / Time amoxicillin [AMOXICILLIN] Allergy Unknown VOMITING Verified 07/19/21 21:29 pollen extracts [POLLEN] Allergy Unknown ITCHY EYES Verified 02/25/21 17:56 Review of Systems Review of Systems Yes all other systems are reviewed and are negative Physical Exam Vital Signs: Vital Signs: Last Vital Signs Temp 98.3 F 07/19/21 21:29 Pulse 84 07/19/21 21:29 Resp 17 07/19/21 21:29 BP 117/75 07/19/21 21:29 Pulse Ox 95 07/19/21 21:29 Body Mass Index 38.9 Const: General: cooperative and no acute distress Orientation/consciousness: oriented to person and oriented to place Limitations: no limitations HENMT: Head: Yes normal to inspection, Yes normocephalic and Yes atraumatic Ears: external ears normal General nose exam: Normal external nose present Face and sinus: Yes normal facial exam Mouth: Normal oral and palatal mucosa present Throat: Yes posterior oropharynx normal Eyes: General: appearance normal, both eyes and all related structures Pupils: Equal, round and reactive pupils present Neck: Neck: Yes normal visual inspection, Yes no lymphadenopathy, Yes trachea midline and Yes supple Chest: Chest palpation & inspection: normal inspection of the chest and normal palpation of entire chest wall Resp: Effort & Inspection: normal respiratory effort and able to speak in complete sentences Auscultation: clear to auscultation bilaterally Cardio: Rate: regular rate Rhythm: regular rhythm Heart sounds: S1 normal heart sound present, S2 normal heart sound present and no murmurs GI: Inspection: Yes normal to inspection Palpation (GI): Soft to palpation, Tenderness to palpation present (GI) in the epigastrum (Moderate) and in the LUQ (Mild) and no guarding Auscultation: normal bowel sounds : General: Yes no CVA tenderness Back/Spine/Pelvis: Back: no CVA tenderness Skin: General skin exam: no rashes or lesions noted Neuro: General: oriented to person and oriented to place Cranial nerves: Yes CN's II-XII intact bilaterally and Yes Equal, round and reactive pupils present Cognition (Neuro): normal cognition Motor exam (neuro): 5/5 motor strength present throughout Extrem: General: Yes normal to inspection Psych: Appearance: grossly normal Speech and movement: Normal speech and movement present Affect: normal affect Attitude: cooperative Thought process: Normal thought process present Thought content: Normal thought content present Course Course Course Narrative: 31-year-old female who presents emergency department for evaluation of intermittent epigastric and left upper quadrant abdominal pain times 2-3 weeks, the pain is related to eating food and lasts approximately 1 hour. The patient says physical examination did reveal epigastric tenderness and left upper quadrant tenderness pain the patient was seen here yesterday for similar complaints. She was diagnosed with pneumonia and gastritis but did not take Prilosec as directed. The patient's exam and presentation is consistent with gastritis. I will prescribe omeprazole 20 mg daily for 1 month. The patient will be discharged home. The patient was given verbal and printed instructions prior to discharge. The patient was advised to follow-up with her PCP in 2 days and to return to the emergency department if her symptoms get worse or if she develops any new symptoms that are concerning to her. MDM - Abdominal Pain Lab Data Labs: Lab Results 07/19/21 Range/Units 21:49 Urine Color YELLOW Urine Appearance CLEAR Urine pH 7.0 (5.0-8.0) Ur Specific [place] 1.010 (1.005-1.025) Urine Protein NEG (NEG-TRACE) MG/DL Urine Glucose (UA) NEG (NEG) MG/DL Urine Ketones NEG (NEG) MG/DL Urine Blood TRACE (NEG) Urine Nitrite NEG (NEG) Ur Leukocyte Esterase NEG (NEG) Urine RBC 1-4 (0) /HPF Urine WBC 0-2 (0-4) /HPF Ur Squamous Epith Cells 1+ /LPF Urine Bacteria NONE /LPF Urine Mucus 1+ /LPF Discharge Plan Discharge Clinical Impression: Gastritis Patient Disposition: Home, Self-Care Instructions: Gastritis (ED) Additional Instructions: Your symptoms and examination are consistent with gastritis (inflammation of your stomach secondary to too much acid in your stomach). I am prescribe being Prilosec (omeprazole) 20 mg pills, take 1 pill once a day for 1 month. Hopefully, [employer] will pay for this prescription, if not ask the pharmacist if there is an alternative that [employer] will pay for. This medication will shut off the acid production your stomach and help heal your gastritis. Take Tylenol (acetaminophen) 500 mg pills, 2 pills every 4 to 6 hours as needed for pain. Follow-up with your doctor in 2 days. Please return to the emergency department if your symptoms get worse or if you develop any symptoms that are concerning to you. Prescriptions: New omeprazole 20 mg tablet,delayed release (DR/EC) 20 mg PO DAILY Qty: 30 RF: 0 No Action lidocaine 4 % adhesive patch,medicated 1 patch topical Q24H PRN (Reason: pain) Qty: 15 RF: 0 ibuprofen 800 mg tablet 800 mg PO Q8H PRN (Reason: pain) Qty: 30 RF: 0 cyclobenzaprine 5 mg tablet 5 mg PO TID PRN (Reason: muscle spasm) Qty: 14 RF: 0 azithromycin [Zithromax Z-Yogesh] 250 mg tablet 250 mg PO DAILY 5 Days Qty: 6 RF: 0 doxycycline monohydrate 100 mg capsule 100 mg PO BID 10 Days Qty: 20 RF: 0 prednisone 20 mg tablet 60 mg PO DAILY 5 Days Qty: 15 RF: 0 albuterol sulfate [ProAir HFA] 90 mcg/actuation HFA aerosol inhaler 2 puff inhalation Q4-6H PRN (Reason: shortness of breath or wheezing) Qty: 8.5 RF: 0 azithromycin [Zithromax Z-Yogesh] 250 mg tablet See Rx Instructions .ROUTE .COMPLEX Qty: 6 RF: 0 omeprazole magnesium [Prilosec OTC] 20 mg tablet,delayed release (DR/EC) 20 mg PO BID Qty: 30 RF: 0 Breo Ellipta 200-25 mcg/dose blister with device 1 inh inhalation DAILY RF: 0 clonidine HCl 0.1 mg tablet 0.1 mg PO TID RF: 0 hydroxyzine HCl 25 mg tablet 25 mg PO BEDTIME RF: 0 methylphenidate HCl [Concerta] 27 mg tablet extended release 24hr 27 mg PO DAILY RF: 0 Latuda 60 mg tablet 60 mg PO DAILY RF: 0 tolterodine 4 mg capsule,extended release 24hr 4 mg PO DAILY 90 Days Qty: 90 RF: 1 PMFSH Past Medical History PMFSH Narrative: Social history: The patient denies tobacco use. She does drink alcohol rarely. She smokes marijuana daily, multiple times. Medical History ADHD Allergic rhinosinusitis Asthma Bipolar 1 disorder Borderline personality disorder Depression Insomnia DAX (obstructive sleep apnea) PTSD (post-traumatic stress disorder) Surgical History History of oral surgery Hx of adenoidectomy Hx of tonsillectomy Social History Social History Alcohol intake: never Advance Directives: No Advance Directives Information Provided: No Patient : No
[2021-07-20 00:33] VITALS: BP 122/77; PULSE 57; RESP 16; O2SAT 96
== END 2021-07-20 00:47 | disposition home or self-care (01) ==
PROVIDERS: Emergency Provider Emergency Medicine Emergency Medical Services
DX: K29.00 Acute gastritis without bleeding (principal); F12.90 Cannabis use, unspecified, uncomplicated; Z79.899 Other long term (current) drug therapy
CPT/HCPCS: 81001; 81003; 99283; 99284

== ENCOUNTER 2021-10-23 11:18 | Emergency (ER) | payer MEDICAID, SELFPAY ==
--- NOTE | ~2021-10-23 | XR_ITS ---
EXAMINATION: XR CHEST CLINICAL INFORMATION: Cough, fever COMPARISON: Portable upright AP TECHNIQUE: Portable upright AP view of the chest is obtained. FINDINGS: The lungs are clear. There is no airspace consolidation or groundglass opacity or effusion. Heart size normal. Normal vascularity. The hilar and mediastinal contours are normal. There is mild curvature thoracic spine again seen. XR/XR chest 1V IMPRESSION: Unremarkable examination.
--- NOTE | ~2021-10-23 | CT_ITS ---
EXAMINATION: CT ABDOMEN AND PELVIS WITH CONTRAST CLINICAL INFORMATION: Abdominal pain COMPARISON: None TECHNIQUE: Multidetector volumetric images were obtained from the superior aspect of the liver through the pubic symphysis following administration 85 mL of Omnipaque 350 intravenous contrast. Sagittal and coronal reformatted images were obtained on the technologist's workstation. Oral contrast: No This CT examination was performed using dose optimization techniques as appropriate, variously including the following: *Automated exposure control *Adjustment of mA and/or kV according to patient size (this includes techniques or standardized protocols for targeted exams where dose is matched to indication/reason for exam; i.e. extremities or head) *Use of iterative reconstruction technique DLP: 762 mGy-cm FINDINGS: LUNG BASES: The visualized lung bases are unremarkable. LIVER, GALLBLADDER, AND BILIARY TREE: The liver is normal in size, shape, and attenuation. No focal hepatic lesion or biliary ductal dilatation is present. The gallbladder is unremarkable with no evidence of radiopaque gallstones, gallbladder wall thickening, or obvious pericholecystic inflammatory changes. PANCREAS: Unremarkable. SPLEEN: Unremarkable. ADRENAL GLANDS: Unremarkable. KIDNEYS AND URETERS: The kidneys are normal in size, shape, and attenuation. No hydronephrosis, hydroureter, or calculi seen. No perinephric stranding. BLADDER: Unremarkable. GASTROINTESTINAL TRACT: There is no bowel obstruction or inflammatory changes in the bowel or mesentery. The cecum is rotated superiorly. The appendix is normal, residing near the right hepatorenal fossa. There is no ascites or fluid collection. Small hiatal hernia is present under 4 cm. ABDOMINAL WALL: Tiny fat-containing umbilical hernia, under 3 cm. LYMPH NODES: No lymphadenopathy. VASCULAR: Unremarkable. PELVIC VISCERA: IUD in position. No adnexal mass or pelvic ascites. OSSEOUS STRUCTURES: Unremarkable. CT/CT abdomen pelvis w con IMPRESSION: 1. No inflammatory changes in abdomen or pelvis. Normal appendix. No ascites. 2. No biliary ductal dilatation. No hydronephrosis or perinephric stranding. 3. IUD in position. No adnexal mass or pelvic ascites. Fleischner guidelines were followed.
[2021-10-23 11:36] VITALS: BP 107/73; PULSE 113; RESP 19; TEMP 37.4; O2SAT 95; BMI 39.5
--- NOTE | 2021-10-23 12:44 | ED_ITS ---
HPI - URI/Sore Throat General Chief Complaint: Upper Respiratory Symptoms Stated Complaint: flu like symptoms Time Seen by Provider: 10/23/21 12:43 Source: patient Mode of arrival: ambulatory Limitations: no limitations History of Present Illness HPI Narrative: 31-year-old female with a past history of asthma, obstructive sleep apnea, borderline personality disorder, bipolar 1 disorder, and COVID in October 2020 presents for vomiting, abdominal pain, body aches, fevers, chills, sweats, cough, chest wall pain, that started last night. Patient last menstrual period was last week, she has an IUD. She is actively coughing and vomiting and groaning in pain. She has been vaccinated MD elicited complaint: fever, cough and nasal congestion Pertinent past history: asthma Onset (ago): day(s) (1) Consistency: constant Severity: severe Able to tolerate fluids by mouth: Yes Relieving factors: nothing Associated symptoms: fever, chills, myalgias, headache, rhinorrhea, nasal congestion, cough, abdominal pain, nausea and vomiting Treatments prior to arrival: none Related Data Home Medications Medication Instructions Recorded Confirmed clonidine HCl 0.1 mg tablet 0.1 mg PO TID 09/25/20 11/20/20 fluticasone furoate 200 1 inh INHALATION DAILY 09/25/20 11/20/20 mcg-vilanterol 25 mcg/dose inhalation powder (Breo Ellipta) hydroxyzine HCl 25 mg tablet 25 mg PO BEDTIME 09/25/20 11/20/20 lurasidone 60 mg tablet (Latuda) 60 mg PO DAILY 09/25/20 11/20/20 methylphenidate HCl 27 mg 27 mg PO DAILY 09/25/20 11/20/20 tablet,extended release 24 hr (Concerta) Previous Rx's Medication Instructions Recorded albuterol sulfate 90 mcg/actuation 2 puff INHALATION Q4-6H PRN #8.5 g 11/20/20 aerosol inhaler (ProAir HFA) azithromycin 250 mg tablet 250 mg PO DAILY 5 Days #6 tab 11/20/20 (Zithromax Z-Yogesh) doxycycline monohydrate 100 mg 100 mg PO BID 10 Days #20 cap 11/20/20 capsule prednisone 20 mg tablet 60 mg PO DAILY 5 Days #15 tab 11/20/20 tolterodine 4 mg capsule,extended 4 mg PO DAILY 90 Days #90 cap 01/15/21 release 24 hr cyclobenzaprine 5 mg tablet 5 mg PO TID PRN #14 tab 02/25/21 ibuprofen 800 mg tablet 800 mg PO Q8H PRN #30 tab 02/25/21 lidocaine 4 % topical patch 1 patch TOPICAL Q24H PRN #15 ea 02/25/21 azithromycin 250 mg tablet See Rx Instructions .ROUTE 07/18/21 (Zithromax Z-Yogesh) .COMPLEX #6 tab omeprazole magnesium 20 mg 20 mg PO BID #30 tab 07/18/21 tablet,delayed release (Prilosec OTC) omeprazole 20 mg tablet,delayed 20 mg PO DAILY #30 tab 07/20/21 release albuterol sulfate 90 mcg/actuation 2 puff INHALATION Q4-6H PRN #8.5 g 10/23/21 aerosol inhaler ondansetron 4 mg disintegrating 4 mg PO Q8H #6 tab 10/23/21 tablet Allergies Allergy/AdvReac Type Severity Reaction Status Date / Time amoxicillin [AMOXICILLIN] Allergy Unknown VOMITING Verified 07/19/21 21:29 pollen extracts [POLLEN] Allergy Unknown ITCHY EYES Verified 02/25/21 17:56 Review of Systems Constitutional: Constitutional: Reports body ache(s), Reports chills, Reports fatigue, Reports fever(s), Reports headache(s), Reports malaise and Denies weakness Eyes: Eyes: Denies diplopia ENT: Denies vertigo, Denies dizziness, Denies otalgia, Reports headache(s), Denies mouth pain, Reports nasal discharge, Reports post nasal drip, Denies sinus pain, Denies sinus pressure, Reports sore throat and Denies throat swelling Cardiovascular: Cardiovascular: Denies chest pain, Denies syncope, Denies leg edema, Denies lightheadedness, Denies Loss of Consciousness, Denies palpitations and Denies dyspnea Respiratory: Respiratory: Reports chest congestion, Denies cough and Denies dyspnea Gastrointestinal: Gastrointestinal: Reports abdominal pain, Denies hematochezia, Denies constipation, Denies diarrhea, Reports nausea and Reports vomiting Genitourinary: Genitourinary: Reports no additional female genitourinary complaints, Denies pelvic pain and Denies urinary urgency Musculoskeletal: Musculoskeletal: Reports myalgias Integumentary/Breasts: Skin/Breast: Denies rash Neurologic: Denies confusion, Denies vertigo, Denies dizziness, Denies syncope, Reports headache(s) and Denies weakness Psychiatric: Psychiatric: Reports anxiety, Denies confusion and Denies depression Endocrine: Endocrine: Reports fatigue and Denies palpitations Allergic/Immunologic: Allergic/Immunologic: Denies throat swelling [facility] Past Medical History Medical History ADHD Allergic rhinosinusitis Asthma Bipolar 1 disorder Borderline personality disorder Depression Insomnia DAX (obstructive sleep apnea) PTSD (post-traumatic stress disorder) Surgical History History of oral surgery Hx of adenoidectomy Hx of tonsillectomy Social History Social History Alcohol intake: never Advance Directives: No Advance Directives Information Provided: No Patient : No Physical Exam Vital Signs: Vital Signs: Last Vital Signs Temp 99.1 F 10/23/21 18:09 Pulse 78 10/23/21 18:09 Resp 17 10/23/21 18:09 BP 114/66 10/23/21 18:09 Pulse Ox 98 10/23/21 18:09 BMI result Body Mass Index 39.5 Const: General: alert, awake, acute distress (coughing and vomiting) mild and ill appearing acutely; No confusion Nutritional Appearance: obese Orientation/consciousness: patient oriented x3 and No confusion Limitations: no limitations HENMT: Head: Yes normal to inspection, Yes normocephalic and Yes atraumatic Ears: hearing grossly normal bilaterally, external ears normal, TM's normal bilaterally and EAC's normal General nose exam: Normal external nose present Face and sinus: Yes normal facial exam and Yes sinuses nontender Mouth: Normal oral and palatal mucosa present and moist mucous membranes Throat: Yes posterior oropharynx abnormal (erythematous) Eyes: Conjunctivae: conjunctivae normal Pupils: Equal, round and reactive pupils present EOM: EOMs intact bilaterally Neck: Neck: Yes full ROM, Yes no lymphadenopathy, Yes no meningeal signs, Yes trachea midline and Yes supple Resp: Effort & Inspection: normal respiratory effort and able to speak in com plete sentences Auscultation: clear to auscultation bilaterally, no crackles, no rales, no rhonchi and no wheezes Cardio: Rate: regular rate Rhythm: regular rhythm Heart sounds: S1 normal heart sound present and S2 normal heart sound present GI: Inspection: Yes normal to inspection Palpation (GI): Soft to palpation, Tenderness to palpation present (GI) in the epigastrum, in the LLQ, in the LUQ and in the RUQ, Guarding due to palpation present (GI) in the LLQ, in the LUQ and in the RUQ and not rigid Percussion: Yes normal to percussion A uscultation: normal bowel sounds Skin: General skin exam: no rashes or lesions noted Neuro: General: patient oriented x3, no meningeal signs and No confusion Cranial nerves: Yes Equal, round and reactive pupils present Extrem: General: Yes normal to inspection and Yes full ROM Psych: Appearance: grossly normal Mental Status: mental status grossly normal Speech and movement: Normal speech and movement present Affect: normal affect Attitude: cooperative Thought process: Normal thought process present Course Course Course Narrative: 31-year-old female with COVID like symptoms and abdominal pain who is actively vomiting and groaning in pain on my exam. Patient is tachycardic at 110., afebrile. Respirations 20, satting 96% on room air Patient is tender and guarding in most of her abdomen. Lungs clear to auscultation bilaterally CXR: FINDINGS: The lungs are clear. There is no airspace consolidation or groundglass opacity or effusion. Heart size normal. Normal vascularity. The hilar and mediastinal contours are normal. There is mild curvature thoracic spine again seen. XR/XR chest 1V IMPRESSION: Unremarkable examination. Patient is not , labs are unremarkable with a white count of 9.3, lipase of only 20. Patient is COVID positive. Patient given fluids,, Tylenol, oxycodone, Zofran Will do CT abdomen pelvis to rule out pathology given patient's very tender and guarding presentation on abdominal exam. ? Reevaluation(s) Reevaluation #1: Patient's vomiting has resolved with fluids, Zofran, oxycodone. On re-exam, patient is still tachycardic at 110, and she is complaining that her nausea and abdominal pain is returning Reevaluation #2: CT/CT abdomen pelvis w con IMPRESSION: ? 1. No inflammatory changes in abdomen or pelvis. Normal appendix. No ascites. 2. No biliary ductal dilatation. No hydronephrosis or perinephric stranding. 3. IUD in position. No adnexal mass or pelvic ascites.? Patient's tachycardia has resolved, will send home with albuterol inhaler and Zofran Patient feels comfortable going home, gave return precautions if she cannot eat or drink due to nausea and vomiting she can return MDM - URI/Sore Throat Lab Data Result diagrams: 10/23/21 14:02 10/23/21 14:02 Labs: Lab Results 10/23/21 10/23/21 10/23/21 Range/Units 14:02 14:02 14:02 WBC 9.3 (4.8-10.8) X10*3/uL RBC 4.90 (4.20-5.50) X10*6/uL Hgb 15.4 (12.0-16.0) g/dl Hct 46.5 (37.0-47.0) % MCV 94.9 (80.0-98.0) fL MCH 31.4 (27.0-33.0) pg MCHC 33.1 (31.0-35.0) g/dl RDW 13.0 (11.0-16.0) % Plt Count 215 (160-400) X10*3/uL MPV 11.0 (9.4-12.3) fL Immature Gran % (Auto) 0.3 (0.0-0.4) % Neut % (Auto) 79.9 H (45-73) % Lymph % (Auto) 8.8 L (20-40) % Ferry % (Auto) 9.8 (2-11) % Eos % (Auto) 0.9 (0-4) % Baso % (Auto) 0.3 (0-2) % Lymph # (Auto) 0.8 L (1.2-4.9) X10*3/uL Ferry # (Auto) 0.9 (0.1-1.2) X10*3/uL Eos # (Auto) 0.1 (0.0-0.4) X10*3/uL Baso # (Auto) 0.0 (0.0-0.2) X10*3/uL Abs Immat Gran (auto) 0.03 (0.00-0.03) X10*3/uL Absolute Neuts (auto) 7.4 (2.0-8.3) x10*3/uL Absolute Nucleated RBC 0.000 (0.0-0.012) X10*3/uL Nucleated RBC % (auto) 0.0 (0.0-0.2) /100WBC Sodium 138 (135-145) mmol/L Potassium 3.8 (3.3-5.1) mmol/L Chloride 105 (96-108) mmol/L Carbon Dioxide 26 (22-29) mmol/L Anion Gap 11 L (12-20) BUN 9 (9-16) mg/dL Creatinine 0.88 (0.5-1.4) mg/dL Estim Creat Clear Calc 99.4 Estimated GFR > 60 Random Glucose 115 (60-115) mg/dL Calcium 9.4 (8.4-10.2) mg/dL Total Bilirubin 0.7 (0.0-1.0) mg/dL AST 17 (5-31) U/L ALT 23 (0-31) U/L Alkaline Phosphatase 99 (39-117) U/L Total Protein 7.7 (6.5-8.0) g/dL Albumin 4.5 (3.5-5.0) g/dL Lipase 20 (8-78) U/L Beta HCG, Quant < 2 mIU/mL COVID-19 (ROLLY) Positive A (Negative) COVID-19 Clin Com See Note Discharge Plan Discharge Clinical Impression: COVID-19 Abdominal pain Qualifiers: Abdominal location: generalized Qualified Code(s): R10.84 - Generalized abdominal pain Nausea & vomiting Qualifiers: Vomiting type: unspecified Qualified Code(s): R11.2 - Nausea with vomiting, unspecified Patient Disposition: Home, Self-Care Instructions: Acute Nausea and Vomiting (ED), Abdominal Pain (ED), COVID-19 (Coronavirus Disease 2019) (ED) Additional Instructions: Please take Zofran as prescribed. Do not take it more than every 8 hours, because it can cause a fatal heart arrhythmia if you do. Please push fluids. You must stay home and quarantine. You must isolate for 10 days. Drink plenty of fluids and use Tylenol. If you have worsening abdominal pain, vomiting, shortness of breath, or any other new or concerning symptoms, please return to emergency room. Please use 2 albuterol inhaler, 2 puffs every 4 hours while you are awake for the duration of her symptoms Prescriptions: New ondansetron 4 mg tablet,disintegrating 4 mg PO Q8H Qty: 6 RF: 0 albuterol sulfate 90 mcg/actuation HFA aerosol inhaler 2 puff inhalation Q4-6H PRN (Reason: shortness of breath or wheezing) Qty: 8.5 RF: 0 No Action lidocaine 4 % adhesive patch,medicated 1 patch topical Q24H PRN (Reason: pain) Qty: 15 RF: 0 ibuprofen 800 mg tablet 800 mg PO Q8H PRN (Reason: pain) Qty: 30 RF: 0 cyclobenzaprine 5 mg tablet 5 mg PO TID PRN (Reason: muscle spasm) Qty: 14 RF: 0 azithromycin [Zithromax Z-Yogesh] 250 mg tablet 250 mg PO DAILY 5 Days Qty: 6 RF: 0 doxycycline monohydrate 100 mg capsule 100 mg PO BID 10 Days Qty: 20 RF: 0 prednisone 20 mg tablet 60 mg PO DAILY 5 Days Qty: 15 RF: 0 albuterol sulfate [ProAir HFA] 90 mcg/actuation HFA aerosol inhaler 2 puff inhalation Q4-6H PRN (Reason: shortness of breath or wheezing) Qty: 8.5 RF: 0 azithromycin [Zithromax Z-Yogesh] 250 mg tablet See Rx Instructions .ROUTE .COMPLEX Qty: 6 RF: 0 omeprazole magnesium [Prilosec OTC] 20 mg tablet,delayed release (DR/EC) 20 mg PO BID Qty: 30 RF: 0 omeprazole 20 mg tablet,delayed release (DR/EC) 20 mg PO DAILY Qty: 30 RF: 0 Breo Ellipta 200-25 mcg/dose blister with device 1 inh inhalation DAILY RF: 0 clonidine HCl 0.1 mg tablet 0.1 mg PO TID RF: 0 hydroxyzine HCl 25 mg tablet 25 mg PO BEDTIME RF: 0 methylphenidate HCl [Concerta] 27 mg tablet extended release 24hr 27 mg PO DAILY RF: 0 Latuda 60 mg tablet 60 mg PO DAILY RF: 0 tolterodine 4 mg capsule,extended release 24hr 4 mg PO DAILY 90 Days Qty: 90 RF: 1 Stand Alone Forms: Work/School Release
[2021-10-23 14:11] LABS: MANUAL DIFF FLAG NO
[2021-10-23 14:12] LABS: Basophils Percent Auto 0.3 % (0-2); Eosinophils Absolute Auto 0.1 X10*3/uL (0.0-0.4); Eosinophils Percent Auto 0.9 % (0-4); Hematocrit 46.5 % (37.0-47.0); Hemoglobin 15.4 g/dl (12.0-16.0); Imm Gran Abs Auto 0.03 X10*3/uL (0.00-0.03); Imm Gran Pct Auto 0.3 % (0.0-0.4); Lymphocytes Absolute Auto 0.8 X10*3/uL (1.2-4.9); Lymphocytes Percent Auto 8.8 % (20-40); Mean Corpuscular HGB Conc 33.1 g/dl (31.0-35.0); Mean Corpuscular Hemoglobin 31.4 pg (27.0-33.0); Mean Corpuscular Volume 94.9 fL (80.0-98.0); Monocytes Absolute Auto 0.9 X10*3/uL (0.1-1.2); Monocytes Percent Auto 9.8 % (2-11); Neutrophils Absolute Auto 7.4 x10*3/uL (2.0-8.3); Neutrophils Percent Auto 79.9 % (45-73); Platelet Count 215 X10*3/uL (160-400); White Blood Count 9.3 X10*3/uL (4.8-10.8)
[2021-10-23 14:19] LABS: COVID-19 Test Positive (Negative)
[2021-10-23 14:32] LABS: Alanine Aminotransferase 23 U/L (0-31); Albumin Level 4.5 g/dL (3.5-5.0); Alkaline Phosphatase 99 U/L (39-117); Anion Gap 11 (12-20); Aspartate Amino Transferase 17 U/L (5-31); Bilirubin Total 0.7 mg/dL (0.0-1.0); Blood Urea Nitrogen 9 mg/dL (9-16); Calcium 9.4 mg/dL (8.4-10.2); Carbon Dioxide 26 mmol/L (22-29); Chloride 105 mmol/L (96-108); Creatinine Clr Calc Pharmacy 99.4; Estimated Glomerular Filt Rate > 60; Glucose Random 115 mg/dL (60-115); Lipase 20 U/L (8-78); Potassium 3.8 mmol/L (3.3-5.1); Sodium 138 mmol/L (135-145); Total Protein 7.7 g/dL (6.5-8.0)
[2021-10-23 15:07] LABS: HCG Quantitative < 2 mIU/mL
[2021-10-23] MEDS: ondansetron HCL 4 MG/2 ML VIAL IVPUSH ×2 (15:13→18:03)
[2021-10-23] MEDS: Acetaminophen 325 MG TABLET 650 MG PO (15:13)
[2021-10-23] MEDS: oxyCODONE HCl Immed Release 5 MG TABLET 10 MG PO (15:14)
[2021-10-23] MEDS: LORazepam 2 MG/ML VIAL 0.5 MG IVPUSH (15:14)
[2021-10-23] MEDS: 0.9 % Sodium Chloride 1,000 ML 999 ML IV (15:17)
[2021-10-23 15:20] VITALS: PULSE 113; RESP 20; O2SAT 95
[2021-10-23] MEDS: Albuterol Sulfate 90 MCG 8 GM INHALER 2 PUFF INHALE (15:20)
[2021-10-23 15:29] VITALS: BP 120/77; PULSE 110; RESP 20; TEMP 37.3; O2SAT 96
[2021-10-23] MEDS: iohexoL 350 MG/ML 100 ML INFUS..BTL IV (15:50)
[2021-10-23] MEDS: oxyCODONE HCl Immed Release 5 MG TABLET PO (18:02)
[2021-10-23 18:03] VITALS: RESP 17
[2021-10-23 18:04] VITALS: RESP 17
[2021-10-23 18:09] VITALS: BP 114/66; PULSE 78; RESP 17; TEMP 37.3; O2SAT 98
== END 2021-10-23 18:51 | disposition home or self-care (01) ==
PROVIDERS: Physician Assistant; Emergency Provider Emergency Medicine
DX: R50.9 Fever, unspecified (principal); M79.10 Myalgia, unspecified site; R10.9 Unspecified abdominal pain; R05.9 Cough, unspecified; R07.89 Other chest pain; Z20.822 Contact with and (suspected) exposure to COVID-19; Z79.899 Other long term (current) drug therapy
CPT/HCPCS: 36415; 71045; 74177; 80053; 83690; 84702; 85025; 87635; 94640; 96361; 96374; 96375; 96376; 99284; J2060; J2405; Q9967

== ENCOUNTER 2021-10-24 22:20 | Emergency (ER) | payer MEDICAID, SELFPAY | END 2021-10-24 23:35 | disposition left against medical advice (07) | PROVIDERS: Emergency Provider Emergency Medicine | DX: R11.10 Vomiting, unspecified (principal) ==

== ENCOUNTER 2022-01-08 19:04 | Emergency (ER) | payer MEDICAID, SELFPAY ==
[2022-01-08 20:28] VITALS: BP 138/94; PULSE 88; RESP 18; TEMP 36.8; O2SAT 98; BMI 38.5
[2022-01-09 00:33] LABS: Basophils Percent Auto 0.2 % (0-2); Eosinophils Absolute Auto 0.1 X10*3/uL (0.0-0.4); Eosinophils Percent Auto 1.4 % (0-4); Hematocrit 44.8 % (37.0-47.0); Hemoglobin 14.8 g/dl (12.0-16.0); Imm Gran Abs Auto 0.01 X10*3/uL (0.00-0.03); Imm Gran Pct Auto 0.1 % (0.0-0.4); Lymphocytes Absolute Auto 2.6 X10*3/uL (1.2-4.9); Mean Corpuscular Hemoglobin 30.4 pg (27.0-33.0); Mean Platelet Volume 10.9 fL (9.4-12.3); Monocytes Absolute Auto 0.8 X10*3/uL (0.1-1.2); Monocytes Percent Auto 9.5 % (2-11); Neutrophils Absolute Auto 4.8 x10*3/uL (2.0-8.3); Neutrophils Percent Auto 57.8 % (45-73); Platelet Count 221 X10*3/uL (160-400); Red Blood Count 4.87 X10*6/uL (4.20-5.50); Red Cell Distribution Width 13.2 % (11.0-16.0); SCAN SMEAR FLAG 1; White Blood Count 8.3 X10*3/uL (4.8-10.8)
--- NOTE | 2022-01-09 00:47 | ED.GENADULT ---
HPI - General Adult General Chief complaint: Abdominal Pain Stated complaint: vomiting, blood in stool, concern of STD Time Seen by Provider: 01/09/22 00:33 Source: patient Mode of arrival: ambulatory Limitations: no limitations History of Present Illness HPI narrative: Patient comes to the emergency room with multiple complaints. Patient states that she still has ongoing URI symptoms. Patient complaining of congestion. Patient also complaining of vomiting, diffuse abdominal cramping, states she had diarrhea with rectal bleeding. Patient also complaining of having unprotected sex, would like to be tested for STDs. Patient has no vaginal discharge Related Data Home Medications Medication Instructions Recorded Confirmed clonidine HCl 0.1 mg tablet 0.1 mg PO TID 09/25/20 11/20/20 fluticasone furoate 200 1 inh INHALATION DAILY 09/25/20 11/20/20 mcg-vilanterol 25 mcg/dose inhalation powder (Breo Ellipta) hydroxyzine HCl 25 mg tablet 25 mg PO BEDTIME 09/25/20 11/20/20 lurasidone 60 mg tablet (Latuda) 60 mg PO DAILY 09/25/20 11/20/20 methylphenidate HCl 27 mg 27 mg PO DAILY 09/25/20 11/20/20 tablet,extended release 24 hr (Concerta) Previous Rx's Medication Instructions Recorded albuterol sulfate 90 mcg/actuation 2 puff INHALATION Q4-6H PRN #8.5 g 11/20/20 aerosol inhaler (ProAir HFA) azithromycin 250 mg tablet 250 mg PO DAILY 5 Days #6 tab 11/20/20 (Zithromax Z-Yogesh) doxycycline monohydrate 100 mg 100 mg PO BID 10 Days #20 cap 11/20/20 capsule prednisone 20 mg tablet 60 mg PO DAILY 5 Days #15 tab 11/20/20 tolterodine 4 mg capsule,extended 4 mg PO DAILY 90 Days #90 cap 01/15/21 release 24 hr cyclobenzaprine 5 mg tablet 5 mg PO TID PRN #14 tab 02/25/21 ibuprofen 800 mg tablet 800 mg PO Q8H PRN #30 tab 02/25/21 lidocaine 4 % topical patch 1 patch TOPICAL Q24H PRN #15 ea 02/25/21 azithromycin 250 mg tablet See Rx Instructions .ROUTE 07/18/21 (Zithromax Z-Yogesh) .COMPLEX #6 tab omeprazole magnesium 20 mg 20 mg PO BID #30 tab 07/18/21 tablet,delayed release (Prilosec OTC) omeprazole 20 mg tablet,delayed 20 mg PO DAILY #30 tab 07/20/21 release albuterol sulfate 90 mcg/actuation 2 puff INHALATION Q4-6H PRN #8.5 g 10/23/21 aerosol inhaler ondansetron 4 mg disintegrating 4 mg PO Q8H #6 tab 10/23/21 tablet doxycycline hyclate 100 mg capsule 100 mg PO DAILY #13 cap 01/09/22 nitrofurantoin 100 mg PO BID #13 cap 01/09/22 monohydrate/macrocrystals 100 mg capsule (Macrobid) ondansetron HCl 4 mg tablet 4 mg PO Q6H PRN #7 tab 01/09/22 Allergies Allergy/AdvReac Type Severity Reaction Status Date / Time amoxicillin [AMOXICILLIN] Allergy Unknown VOMITING Verified 01/08/22 20:28 pollen extracts [POLLEN] Allergy Unknown ITCHY EYES Verified 01/08/22 20:28 Review of Systems Review of Systems: Constitutional : No Weight loss, No Fever, No Chills, No Night Sweats, No Fatigue, No Malaise ENT/Mouth : No Hearing loss, No Ear Pain, No Nasal Congestion, No Sinus Pain, No Hoarseness, No sore throat, No Rhinorrhea, No Swallowing Difficulty Eyes: No Eye Pain, No Swelling, No Redness, No Foreign Body, No Discharge, No Vision Changes Cardiovascular : No Chest Pain, No SOB, No Dyspnea on Exertion, No Orthopnea, No Edema, No Palpitations Respiratory : Complaining of runny nose, congestion Gastrointestinal : Complaining of nausea vomiting, diarrhea with some bloody stool, abdominal cramping Genitourinary : no irregular bleeding, No Dysuria, No Urinary Frequency, No Hematuria, No Urinary Incontinence, No Urgency, No Flank Pain, No Urinary Flow Changes, No Hesitancy, concerns of sexually transmitted disease exposure Musculoskeletal : No joint pain, No Myalgias, No Joint Swelling Skin : No Skin Lesions, No rash Neuro : No Weakness, No Numbness, No Paresthesias, No Loss of Consciousness, No Dizziness, No Headache Psych : No Anxiety/Panic, No Depression, No SI/HI/AH/VH, No Social Issues, Heme/Lymph: No Bruising, No Bleeding,No Lymphadenopathy Endocrine : No Polyuria, No Polydipsia, No Temperature Intolerance [facility] Past Medical History Medical History ADHD Allergic rhinosinusitis Asthma Bipolar 1 disorder Borderline personality disorder Depression Insomnia DAX (obstructive sleep apnea) PTSD (post-traumatic stress disorder) Surgical History History of oral surgery Hx of adenoidectomy Hx of tonsillectomy Social History Social History Alcohol intake: never Advance Directives: No Patient : No Physical Exam ED Vital Signs: Vital Signs - 24 hr 01/08/22 20:28 Temperature 98.3 F Pulse Rate 88 Respiratory Rate 18 Blood Pressure 138/94 H Pulse Oximetry 98 BMI result Body Mass Index 38.5 Const Other: Appearance: Alert. Oriented X3. No acute distress. Well-appearing Eyes: Pupils equal, round and reactive to light. ENT: Pharynx normal. Neck: Normal inspection. Neck supple. No lymph nodes noted. No crepitus CVS: Normal heart rate and rhythm. Pulses normal. Normal S1 and S2 Respiratory: No respiratory distress. Breath sounds normal. No Wheezing. No rales Abdomen: Soft and nontender. No rigidity. No distention. Digital rectal exam within normal limits, brown stool Skin: Skin warm and dry. Normal skin color. Normal skin turgor. Extremities: No lower extremity edema. No Lacerations. No Rash Neuro: Oriented X 3. No motor deficit. No sensory deficit. Moving all extremities. No slurred speech. CN 2 through 12 grossly intact Psych: calm, cooperative, normal affect Course Course Course Narrative: Patient was given ceftriaxone IM and oral doxycycline, empiric treatment Also, patient has a UTI, given macrbido Medical Decision Making Lab Data Result diagrams: 01/09/22 00:29 01/09/22 00:29 Labs: Lab Results 01/09/22 01/09/22 01/09/22 Range/Units 00:29 00:29 00:45 WBC 8.3 (4.8-10.8) X10*3/uL RBC 4.87 (4.20-5.50) X10*6/uL Hgb 14.8 (12.0-16.0) g/dl Hct 44.8 (37.0-47.0) % MCV 92.0 (80.0-98.0) fL MCH 30.4 (27.0-33.0) pg MCHC 33.0 (31.0-35.0) g/dl RDW 13.2 (11.0-16.0) % Plt Count 221 (160-400) X10*3/uL MPV 10.9 (9.4-12.3) fL Immature Gran % (Auto) 0.1 (0.0-0.4) % Neut % (Auto) 57.8 (45-73) % Lymph % (Auto) 31.0 (20-40) % [place] % (Auto) 9.5 (2-11) % Eos % (Auto) 1.4 (0-4) % Baso % (Auto) 0.2 (0-2) % Lymph # (Auto) 2.6 (1.2-4.9) X10*3/uL [place] # (Auto) 0.8 (0.1-1.2) X10*3/uL Eos # (Auto) 0.1 (0.0-0.4) X10*3/uL Baso # (Auto) 0.0 (0.0-0.2) X10*3/uL Abs Immat Gran (auto) 0.01 (0.00-0.03) X10*3/uL Absolute Neuts (auto) 4.8 (2.0-8.3) x10*3/uL Absolute Nucleated RBC 0.000 (0.0-0.012) X10*3/uL Nucleated RBC % (auto) 0.0 (0.0-0.2) /100WBC Smear Tech's Comments VERIFIED Sodium 142 (135-145) mmol/L Potassium 3.8 (3.3-5.1) mmol/L Chloride 105 (96-108) mmol/L Carbon Dioxide 21 L (22-29) mmol/L Anion Gap 20 (12-20) BUN 9 (9-16) mg/dL Creatinine 0.83 (0.5-1.4) mg/dL Estim Creat Clear Calc 103.9 Estimated GFR > 60 Random Glucose 94 (60-115) mg/dL Calcium 9.2 (8.4-10.2) mg/dL Total Bilirubin 0.9 (0.0-1.0) mg/dL AST 46 H D (5-31) U/L ALT 64 H (0-31) U/L Alkaline Phosphatase 75 D (39-117) U/L Total Protein 7.6 (6.5-8.0) g/dL Albumin 4.4 (3.5-5.0) g/dL Lipase 12 (8-78) U/L Urine Color DK YELLOW Urine Appearance CLOUDY Urine pH 6.0 (5.0-8.0) Ur Specific [place] >= 1.030 H (1.005-1.025) Urine Protein TRACE (NEG-TRACE) MG/DL Urine Glucose (UA) NEG (NEG) MG/DL Urine Ketones >=80 (NEG) MG/DL Urine Blood 3+ H (NEG) Urine Nitrite NEG (NEG) Ur Leukocyte Esterase 1+ H (NEG) Urine RBC 5-9 H (0) /HPF Urine WBC 10-14 H (0-4) /HPF Ur Squamous Epith Cells 3+ /LPF Urine Bacteria 1+ /LPF Urine Mucus 2+ /LPF Urine Test (NEGATIVE) Stool Occult Blood (NEGATIVE) 01/09/22 01/09/22 Range/Units 00:45 00:45 WBC (4.8-10.8) X10*3/uL RBC (4.20-5.50) X10*6/uL Hgb (12.0-16.0) g/dl Hct (37.0-47.0) % MCV (80.0-98.0) fL MCH (27.0-33.0) pg MCHC (31.0-35.0) g/dl RDW (11.0-16.0) % Plt Count (160-400) X10*3/uL MPV (9.4-12.3) fL Immature Gran % (Auto) (0.0-0.4) % Neut % (Auto) (45-73) % Lymph % (Auto) (20-40) % [place] % (Auto) (2-11) % Eos % (Auto) (0-4) % Baso % (Auto) (0-2) % Lymph # (Auto) (1.2-4.9) X10*3/uL [place] # (Auto) (0.1-1.2) X10*3/uL Eos # (Auto) (0.0-0.4) X10*3/uL Baso # (Auto) (0.0-0.2) X10*3/uL Abs Immat Gran (auto) (0.00-0.03) X10*3/uL Absolute Neuts (auto) (2.0-8.3) x10*3/uL Absolute Nucleated RBC (0.0-0.012) X10*3/uL Nucleated RBC % (auto) (0.0-0.2) /100WBC Smear Tech's Comments Sodium (135-145) mmol/L Potassium (3.3-5.1) mmol/L Chloride (96-108) mmol/L Carbon Dioxide (22-29) mmol/L Anion Gap (12-20) BUN (9-16) mg/dL Creatinine (0.5-1.4) mg/dL Estim Creat Clear Calc Estimated GFR Random Glucose (60-115) mg/dL Calcium (8.4-10.2) mg/dL Total Bilirubin (0.0-1.0) mg/dL AST (5-31) U/L ALT (0-31) U/L Alkaline Phosphatase (39-117) U/L Total Protein (6.5-8.0) g/dL Albumin (3.5-5.0) g/dL Lipase (8-78) U/L Urine Color Urine Appearance Urine pH (5.0-8.0) Ur Specific [place] (1.005-1.025) Urine Protein (NEG-TRACE) MG/DL Urine Glucose (UA) (NEG) MG/DL Urine Ketones (NEG) MG/DL Urine Blood (NEG) Urine Nitrite (NEG) Ur Leukocyte Esterase (NEG) Urine RBC (0) /HPF Urine WBC (0-4) /HPF Ur Squamous Epith Cells /LPF Urine Bacteria /LPF Urine Mucus /LPF Urine Test NEGATIVE (NEGATIVE) Stool Occult Blood NEGATIVE (NEGATIVE) Discharge Plan Discharge Clinical Impression: Vomiting, Abdominal pain, Exposure to STD, UTI (urinary tract infection) Patient Disposition: Home, Self-Care Instructions: Safe Sex Practices (ED), Urinary Tract Infection in Women (DC) Additional Instructions: You have a urinary tract infection. The results for sexually transmitted diseases are pending, if positive you will be called. Your empirically being treated already for sexually transmitted diseases. Please follow-up with your primary care physician tomorrow. If you have any worsening or new symptoms, please return to the emergency room or call 911 Prescriptions: New doxycycline hyclate 100 mg capsule 100 mg PO DAILY Qty: 13 0RF nitrofurantoin monohyd/m-cryst [Macrobid] 100 mg capsule 100 mg PO BID Qty: 13 0RF Rx Instructions: must administer with a meal/food ondansetron HCl 4 mg tablet 4 mg PO Q6H PRN (Reason: nausea and vomiting) Qty: 7 0RF No Action lidocaine 4 % adhesive patch,medicated 1 patch topical Q24H PRN (Reason: pain) Qty: 15 0RF Rx Instructions: may leave on for up to 12 hrs ibuprofen 800 mg tablet 800 mg PO Q8H PRN (Reason: pain) Qty: 30 0RF cyclobenzaprine 5 mg tablet 5 mg PO TID PRN (Reason: muscle spasm) Qty: 14 0RF azithromycin [Zithromax Z-Yogesh] 250 mg tablet 250 mg PO DAILY 5 Days Qty: 6 0RF doxycycline monohydrate 100 mg capsule 100 mg PO BID 10 Days Qty: 20 0RF prednisone 20 mg tablet 60 mg PO DAILY 5 Days Qty: 15 0RF albuterol sulfate [ProAir HFA] 90 mcg/actuation HFA aerosol inhaler 2 puff inhalation Q4-6H PRN (Reason: shortness of breath or wheezing) Qty: 8.5 0RF azithromycin [Zithromax Z-Yogesh] 250 mg tablet See Rx Instructions .ROUTE .COMPLEX Qty: 6 0RF Rx Instructions: take 500 mg today (day 1), then 250 mg for 4 days (days 2-5) omeprazole magnesium [Prilosec OTC] 20 mg tablet,delayed release (DR/EC) 20 mg PO BID Qty: 30 0RF ondansetron 4 mg tablet,disintegrating 4 mg PO Q8H Qty: 6 0RF albuterol sulfate 90 mcg/actuation HFA aerosol inhaler 2 puff inhalation Q4-6H PRN (Reason: shortness of breath or wheezing) Qty: 8.5 0RF omeprazole 20 mg tablet,delayed release (DR/EC) 20 mg PO DAILY Qty: 30 0RF Breo Ellipta 200-25 mcg/dose blister with device 1 inh inhalation DAILY 0RF clonidine HCl 0.1 mg tablet 0.1 mg PO TID 0RF hydroxyzine HCl 25 mg tablet 25 mg PO BEDTIME 0RF methylphenidate HCl [Concerta] 27 mg tablet extended release 24hr 27 mg PO DAILY 0RF Latuda 60 mg tablet 60 mg PO DAILY 0RF Rx Instructions: must administer with food (at least 350 calories) tolterodine 4 mg capsule,extended release 24hr 4 mg PO DAILY 90 Days Qty: 90 1RF
[2022-01-09] MEDS: ondansetron HCL 4 MG/2 ML VIAL IVPUSH (00:53)
[2022-01-09 00:55] LABS: MANUAL DIFF FLAG SCAN; SLIDE REVIEW VERIFIED
[2022-01-09 00:57] LABS: Alanine Aminotransferase 64 U/L (0-31); Albumin Level 4.4 g/dL (3.5-5.0); Alkaline Phosphatase 75 U/L (39-117); Anion Gap 20 (12-20); Aspartate Amino Transferase 46 U/L (5-31); Bilirubin Total 0.9 mg/dL (0.0-1.0); Blood Urea Nitrogen 9 mg/dL (9-16); Calcium 9.2 mg/dL (8.4-10.2); Carbon Dioxide 21 mmol/L (22-29); Chloride 105 mmol/L (96-108); Creatinine Clr Calc Pharmacy 103.9; Estimated Glomerular Filt Rate > 60; Glucose Random 94 mg/dL (60-115); Lipase 12 U/L (8-78); Potassium 3.8 mmol/L (3.3-5.1); Sodium 142 mmol/L (135-145); Total Protein 7.6 g/dL (6.5-8.0)
[2022-01-09 01:12] LABS: Appearance Urine CLOUDY; Color Urine DK YELLOW; Glucose Urine UA NEG (NEG); Leukocyte Esterase Urine 1+ (NEG); Nitrite Urine NEG (NEG); OBS Int Ctl Valid YES; OBS1 NEGATIVE (NEGATIVE); Specific Gravity - Urine >= 1.030 (1.005-1.025); UACC Culture Trigger YES; Urine Blood 3+ (NEG); Urine Ketones >=80 MG/DL (NEG); Urine Protein TRACE MG/DL (NEG-TRACE)
[2022-01-09 01:14] LABS: UPreg QC Valid YES; Urine Pregnancy NEGATIVE (NEGATIVE)
[2022-01-09] MEDS: cefTRIAXone sodium 1 GM, Lidocaine HCl 1 % MPF 2.1 ML IM (01:20)
[2022-01-09 01:21] LABS: Bacteria Urine 1+ /LPF; Mucus Urine 2+ /LPF; Squamous Epithelial Cell Urine 3+ /LPF
[2022-01-09 02:19] VITALS: BP 149/79; PULSE 105; RESP 18; O2SAT 97
[2022-01-09] MEDS: Nitrofurantoin Monohyd/M-Cryst 100 MG CAPSULE PO (02:28)
[2022-01-09 09:18] LABS: CT PCR NOT DETECTED (Not Detect.); NG PCR NOT DETECTED (Not Detect.)
== END 2022-01-09 02:32 | disposition home or self-care (01) ==
PROVIDERS: Emergency Provider Emergency Medicine
DX: N39.0 Urinary tract infection, site not specified (principal); R11.10 Vomiting, unspecified; R10.9 Unspecified abdominal pain; Z20.2 Contact with and (suspected) exposure to infections with a predominantly sexual mode of transmission
CPT/HCPCS: 36415; 80053; 81001; 81025; 82272; 83690; 85025; 87086; 87491; 87591; 96372; 96374; 99284; J0696; J2405

== ENCOUNTER 2022-04-12 17:07 | Emergency (ER) | payer MEDICAID, SELFPAY ==
--- NOTE | ~2022-04-12 | XR_ITS ---
EXAMINATION: XR CHEST CLINICAL INFORMATION: Cough and fever COMPARISON: None TECHNIQUE: Frontal view of the chest was obtained. FINDINGS: The lungs are well-expanded and clear of acute process. Heart size and pulmonary vascularity is normal. There is mild dextroscoliosis dorsal spine. No lytic process seen. XR/XR chest 1V IMPRESSION: Unremarkable chest exam. Mild dextroscoliosis dorsal spine.
[2022-04-12 17:17] VITALS: BP 127/82; PULSE 134; TEMP 38.2; O2SAT 95; BMI 39.7
[2022-04-12] MEDS: Ondansetron ODT 4 MG TAB.RAPDIS TRANSLINGU (17:29)
--- NOTE | 2022-04-12 17:29 | PC.NURSE ---
Pt feels nauseous so unable to medicate for fever control at this time, will give zofran sl. [place] INIGUEZ aware of zofran given
[2022-04-12 17:36] LABS: MANUAL DIFF FLAG NO
[2022-04-12 17:52] LABS: COVID-19 Test Negative (Negative); IDNOW Serial# 16C4AD1C
[2022-04-12 17:54] LABS: Influenza A Negative (Negative); Influenza B2 Negative (Negative)
[2022-04-12 18:00] LABS: Basophils Percent Auto 0.3 % (0-2); Eosinophils Absolute Auto 0.1 X10*3/uL (0.0-0.4); Eosinophils Percent Auto 0.9 % (0-4); Hematocrit 43.5 % (37.0-47.0); Hemoglobin 14.6 g/dl (12.0-16.0); Imm Gran Abs Auto 0.07 X10*3/uL (0.00-0.03); Imm Gran Pct Auto 0.7 % (0.0-0.4); Lymphocytes Absolute Auto 0.6 X10*3/uL (1.2-4.9); Lymphocytes Percent Auto 5.8 % (20-40); Mean Corpuscular HGB Conc 33.6 g/dl (31.0-35.0); Mean Corpuscular Hemoglobin 30.7 pg (27.0-33.0); Mean Corpuscular Volume 91.6 fL (80.0-98.0); Mean Platelet Volume 10.8 fL (9.4-12.3); Monocytes Absolute Auto 0.6 X10*3/uL (0.1-1.2); Neutrophils Absolute Auto 8.9 x10*3/uL (2.0-8.3); Neutrophils Percent Auto 86.3 % (45-73); Platelet Count 230 X10*3/uL (160-400); Red Blood Count 4.75 X10*6/uL (4.20-5.50); Red Cell Distribution Width 13.2 % (11.0-16.0); White Blood Count 10.3 X10*3/uL (4.8-10.8)
[2022-04-12 18:22] LABS: Anion Gap 16 (12-20); Blood Urea Nitrogen 11 mg/dL (9-16); Calcium 9.1 mg/dL (8.4-10.2); Carbon Dioxide 20 mmol/L (22-29); Chloride 106 mmol/L (96-108); Creatinine Clr Calc Pharmacy 111.1; Estimated Glomerular Filt Rate > 60; Glucose Random 127 mg/dL (60-115); Potassium 3.9 mmol/L (3.3-5.1); Sodium 138 mmol/L (135-145)
--- NOTE | 2022-04-12 18:41 | ED_ITS ---
HPI - General Adult General Chief complaint: Upper Respiratory Symptoms Stated complaint: chest tightness/diff. breathing/lethargic Time Seen by Provider: 04/12/22 18:40 Source: patient Mode of arrival: ambulatory Limitations: no limitations History of Present Illness HPI narrative: Patient complaining of body aches cough vomiting since yesterday unable to eat much felt warm temperature 101 degrees on arrival complaining of sore throat cough with mucopurulent expectoration complains of chest pain with cough no dysuria or frequency Related Data Home Medications Medication Instructions Recorded Confirmed clonidine HCl 0.1 mg tablet 0.1 mg PO TID 09/25/20 11/20/20 fluticasone furoate 200 1 inh inhalation DAILY 09/25/20 11/20/20 mcg-vilanterol 25 mcg/dose inhalation powder (Breo Ellipta) hydroxyzine HCl 25 mg tablet 25 mg PO BEDTIME 09/25/20 11/20/20 lurasidone 60 mg tablet (Latuda) 60 mg PO DAILY 09/25/20 11/20/20 methylphenidate HCl 27 mg 27 mg PO DAILY 09/25/20 11/20/20 tablet,extended release 24 hr (Concerta) Previous Rx's Medication Instructions Recorded albuterol sulfate 90 mcg/actuation 2 puff inhalation Q4-6H PRN 11/20/20 aerosol inhaler (ProAir HFA) shortness of breath or wheezing #8.5 grams azithromycin 250 mg tablet 250 mg PO DAILY 5 days #6 tabs 11/20/20 (Zithromax Z-Yogesh) doxycycline monohydrate 100 mg 100 mg PO BID 10 days #20 caps 11/20/20 capsule prednisone 20 mg tablet 60 mg PO DAILY 5 days #15 tabs 11/20/20 tolterodine 4 mg capsule,extended 4 mg PO DAILY 90 days #90 caps 01/15/21 release 24 hr cyclobenzaprine 5 mg tablet 5 mg PO TID PRN muscle spasm #14 02/25/21 tabs ibuprofen 800 mg tablet 800 mg PO Q8H PRN pain #30 tabs 02/25/21 lidocaine 4 % topical patch 1 patch topical Q24H PRN pain #15 02/25/21 ea azithromycin 250 mg tablet See Rx Instructions PO .COMPLEX #6 07/18/21 (Zithromax Z-Yogesh) tabs omeprazole magnesium 20 mg 20 mg PO BID #30 tabs 07/18/21 tablet,delayed release (Prilosec OTC) omeprazole 20 mg tablet,delayed 20 mg PO DAILY #30 tabs 07/20/21 release albuterol sulfate 90 mcg/actuation 2 puff inhalation Q4-6H PRN 10/23/21 aerosol inhaler shortness of breath or wheezing #8.5 grams ondansetron 4 mg disintegrating 4 mg PO Q8H #6 tabs 10/23/21 tablet doxycycline hyclate 100 mg capsule 100 mg PO DAILY #13 caps 01/09/22 nitrofurantoin 100 mg PO BID #13 caps 01/09/22 monohydrate/macrocrystals 100 mg capsule (Macrobid) ondansetron HCl 4 mg tablet 4 mg PO Q6H PRN nausea and 01/09/22 vomiting #7 tabs cefuroxime axetil 500 mg tablet 500 mg PO BID #20 tabs 04/12/22 ibuprofen 600 mg tablet 600 mg PO Q6H PRN pain #20 tabs 04/12/22 ondansetron 4 mg disintegrating 4 mg PO Q6-8H PRN nausea and 04/12/22 tablet vomiting #7 tabs Allergies Allergy/AdvReac Type Severity Reaction Status Date / Time amoxicillin [AMOXICILLIN] Allergy Unknown VOMITING Verified 01/08/22 20:28 pollen extracts [POLLEN] Allergy Unknown ITCHY EYES Verified 01/08/22 20:28 Review of Systems Review of Systems: Yes all other systems are reviewed and are negative PMFSH Past Medical History Medical History ADHD Bipolar 1 disorder Borderline personality disorder Depression Insomnia PTSD (post-traumatic stress disorder) Surgical History History of oral surgery Hx of adenoidectomy Hx of tonsillectomy Social History Social History Alcohol intake: never Advance Directives: No Advance Directives Information Provided: No Physical Exam ED Vital Signs: Vital Signs - 24 hr 04/12/22 17:17 04/12/22 18:46 04/12/22 19:17 Temperature 100.8 F H 101.1 F H Pulse Rate 134 H 110 H Respiratory Rate 16 Blood Pressure 127/82 106/63 Pulse Oximetry 95 98 98 Oxygen Delivery Method Room Air Room Air Room Air 04/12/22 19:51 Temperature 100.1 F Pulse Rate 106 H Respiratory Rate 16 Blood Pressure 119/69 Pulse Oximetry 99 Oxygen Delivery Method Room Air BMI result Body Mass Index 39.7 Appearance: Alert. Oriented X3. No acute distress. Anxious Eyes: No pallor ENT: Pharynx normal. Oral Mucosa moist Neck: Normal inspection. Neck supple. CVS: Tachycardia. Pulses normal. Respiratory: No respiratory distress. Equal air entry bilateral, no wheezing/rales/rhonchi Abdomen: Soft and nontender. Bowel sounds are present, no mass palpable, no CVA tenderness Skin: Skin warm and dry. Normal skin color. Normal skin turgor. Extremities: No lower extremity edema. No calf tenderness Neuro: Oriented X 3. Medical Decision Making MDM Narrative Medical decision making narrative: Patient with bronchitis chest x-ray negative labs are stable, COVID and influenza negative will discharge patient on Ceftin Lab Data Lab results reviewed: Yes I reviewed the patient's lab results. Result diagrams: 04/12/22 17:31 04/12/22 17:31 Labs: Lab Results 04/12/22 04/12/22 04/12/22 Range/Units 17:31 17:31 17:31 WBC 10.3 (4.8-10.8) X10*3/uL RBC 4.75 (4.20-5.50) X10*6/uL Hgb 14.6 (12.0-16.0) g/dl Hct 43.5 (37.0-47.0) % MCV 91.6 (80.0-98.0) fL MCH 30.7 (27.0-33.0) pg MCHC 33.6 (31.0-35.0) g/dl RDW 13.2 (11.0-16.0) % Plt Count 230 (160-400) X10*3/uL MPV 10.8 (9.4-12.3) fL Immature Gran % (Auto) 0.7 H (0.0-0.4) % Neut % (Auto) 86.3 H (45-73) % Lymph % (Auto) 5.8 L (20-40) % [place] % (Auto) 6.0 (2-11) % Eos % (Auto) 0.9 (0-4) % Baso % (Auto) 0.3 (0-2) % Lymph # (Auto) 0.6 L (1.2-4.9) X10*3/uL [place] # (Auto) 0.6 (0.1-1.2) X10*3/uL Eos # (Auto) 0.1 (0.0-0.4) X10*3/uL Baso # (Auto) 0.0 (0.0-0.2) X10*3/uL Abs Immat Gran (auto) 0.07 H (0.00-0.03) X10*3/uL Absolute Neuts (auto) 8.9 H (2.0-8.3) x10*3/uL Absolute Nucleated RBC 0.000 (0.0-0.012) X10*3/uL Nucleated RBC % (auto) 0.0 (0.0-0.2) /100WBC Sodium (135-145) mmol/L Potassium (3.3-5.1) mmol/L Chloride (96-108) mmol/L Carbon Dioxide (22-29) mmol/L Anion Gap (12-20) BUN (9-16) mg/dL Creatinine (0.5-1.4) mg/dL Estim Creat Clear Calc Estimated GFR Random Glucose (60-115) mg/dL Calcium (8.4-10.2) mg/dL Urine Color Urine Appearance Urine pH (5.0-8.0) Ur Specific [place] (1.005-1.025) Urine Protein (NEG-TRACE) MG/DL Urine Glucose (UA) (NEG) MG/DL Urine Ketones (NEG) MG/DL Urine Blood (NEG) Urine Nitrite (NEG) Ur Leukocyte Esterase (NEG) Urine RBC (0) /HPF Urine WBC (0-4) /HPF Ur Squamous Epith Cells /LPF Urine Bacteria /LPF Urine Test (NEGATIVE) COVID-19 (ROLLY) Negative (Negative) COVID-19 Clin Com See Note Influenza Type A (AVTAR) Negative (Negative) Influenza Type B (AVTAR) Negative (Negative) Influenza A & B Note See Note S. pyogenes GrpA AVTAR (Negative) 06/19/22 06/19/22 06/19/22 Range/Units 17:31 18:52 18:52 WBC (4.8-10.8) X10*3/uL RBC (4.20-5.50) X10*6/uL Hgb (12.0-16.0) g/dl Hct (37.0-47.0) % MCV (80.0-98.0) fL MCH (27.0-33.0) pg MCHC (31.0-35.0) g/dl RDW (11.0-16.0) % Plt Count (160-400) X10*3/uL MPV (9.4-12.3) fL Immature Gran % (Auto) (0.0-0.4) % Neut % (Auto) (45-73) % Lymph % (Auto) (20-40) % [place] % (Auto) (2-11) % Eos % (Auto) (0-4) % Baso % (Auto) (0-2) % Lymph # (Auto) (1.2-4.9) X10*3/uL [place] # (Auto) (0.1-1.2) X10*3/uL Eos # (Auto) (0.0-0.4) X10*3/uL Baso # (Auto) (0.0-0.2) X10*3/uL Abs Immat Gran (auto) (0.00-0.03) X10*3/uL Absolute Neuts (auto) (2.0-8.3) x10*3/uL Absolute Nucleated RBC (0.0-0.012) X10*3/uL Nucleated RBC % (auto) (0.0-0.2) /100WBC Sodium 138 (135-145) mmol/L Potassium 3.9 (3.3-5.1) mmol/L Chloride 106 (96-108) mmol/L Carbon Dioxide 20 L (22-29) mmol/L Anion Gap 16 (12-20) BUN 11 (9-16) mg/dL Creatinine 0.79 (0.5-1.4) mg/dL Estim Creat Clear Calc 111.1 Estimated GFR > 60 Random Glucose 127 H (60-115) mg/dL Calcium 9.1 (8.4-10.2) mg/dL Urine Color YELLOW Urine Appearance CLEAR Urine pH >= 9.0 H (5.0-8.0) Ur Specific [place] 1.010 (1.005-1.025) Urine Protein TRACE (NEG-TRACE) MG/DL Urine Glucose (UA) NEG (NEG) MG/DL Urine Ketones 15 (NEG) MG/DL Urine Blood 1+ H (NEG) Urine Nitrite NEG (NEG) Ur Leukocyte Esterase NEG (NEG) Urine RBC 5-9 H (0) /HPF Urine WBC 0 (0-4) /HPF Ur Squamous Epith Cells 1+ /LPF Urine Bacteria 1+ /LPF Urine Test NEGATIVE (NEGATIVE) COVID-19 (ROLLY) (Negative) COVID-19 Clin Com Influenza Type A (AVTAR) (Negative) Influenza Type B (AVTAR) (Negative) Influenza A & B Note S. pyogenes GrpA AVTAR (Negative) 04/12/22 Range/Units 18:52 WBC (4.8-10.8) X10*3/uL RBC (4.20-5.50) X10*6/uL Hgb (12.0-16.0) g/dl Hct (37.0-47.0) % MCV (80.0-98.0) fL MCH (27.0-33.0) pg MCHC (31.0-35.0) g/dl RDW (11.0-16.0) % Plt Count (160-400) X10*3/uL MPV (9.4-12.3) fL Immature Gran % (Auto) (0.0-0.4) % Neut % (Auto) (45-73) % Lymph % (Auto) (20-40) % [place] % (Auto) (2-11) % Eos % (Auto) (0-4) % Baso % (Auto) (0-2) % Lymph # (Auto) (1.2-4.9) X10*3/uL [place] # (Auto) (0.1-1.2) X10*3/uL Eos # (Auto) (0.0-0.4) X10*3/uL Baso # (Auto) (0.0-0.2) X10*3/uL Abs Immat Gran (auto) (0.00-0.03) X10*3/uL Absolute Neuts (auto) (2.0-8.3) x10*3/uL Absolute Nucleated RBC (0.0-0.012) X10*3/uL Nucleated RBC % (auto) (0.0-0.2) /100WBC Sodium (135-145) mmol/L Potassium (3.3-5.1) mmol/L Chloride (96-108) mmol/L Carbon Dioxide (22-29) mmol/L Anion Gap (12-20) BUN (9-16) mg/dL Creatinine (0.5-1.4) mg/dL Estim Creat Clear Calc Estimated GFR Random Glucose (60-115) mg/dL Calcium (8.4-10.2) mg/dL Urine Color Urine Appearance Urine pH (5.0-8.0) Ur Specific [place] (1.005-1.025) Urine Protein (NEG-TRACE) MG/DL Urine Glucose (UA) (NEG) MG/DL Urine Ketones (NEG) MG/DL Urine Blood (NEG) Urine Nitrite (NEG) Ur Leukocyte Esterase (NEG) Urine RBC (0) /HPF Urine WBC (0-4) /HPF Ur Squamous Epith Cells /LPF Urine Bacteria /LPF Urine Test (NEGATIVE) COVID-19 (ROLLY) (Negative) COVID-19 Clin Com Influenza Type A (AVTAR) (Negative) Influenza Type B (AVTAR) (Negative) Influenza A & B Note S. pyogenes GrpA AVTAR Negative (Negative) Discharge Plan Discharge Clinical Impression: Bronchitis Patient Disposition: Home, Self-Care Instructions: Acute Bronchitis (ED) Additional Instructions: Drink plenty of fluids Antibiotic and nausea medication as advised Tylenol /Motrin for fever Prescriptions: New ibuprofen 600 mg tablet 600 mg PO Q6H PRN (Reason: pain) Qty: 20 0RF cefuroxime axetil 500 mg tablet 500 mg PO BID Qty: 20 0RF ondansetron 4 mg tablet,disintegrating 4 mg PO Q6-8H PRN (Reason: nausea and vomiting) Qty: 7 0RF No Action lidocaine 4 % adhesive patch,medicated 1 patch topical Q24H PRN (Reason: pain) Qty: 15 0RF Rx Instructions: may leave on for up to 12 hrs ibuprofen 800 mg tablet 800 mg PO Q8H PRN (Reason: pain) Qty: 30 0RF cyclobenzaprine 5 mg tablet 5 mg PO TID PRN (Reason: muscle spasm) Qty: 14 0RF azithromycin [Zithromax Z-Yogesh] 250 mg tablet 250 mg PO DAILY 5 Days Qty: 6 0RF doxycycline monohydrate 100 mg capsule 100 mg PO BID 10 Days Qty: 20 0RF prednisone 20 mg tablet 60 mg PO DAILY 5 Days Qty: 15 0RF albuterol sulfate [ProAir HFA] 90 mcg/actuation HFA aerosol inhaler 2 puff inhalation Q4-6H PRN (Reason: shortness of breath or wheezing) Qty: 8.5 0RF azithromycin [Zithromax Z-Yogesh] 250 mg tablet See Rx Instructions .ROUTE .COMPLEX Qty: 6 0RF Rx Instructions: take 500 mg today (day 1), then 250 mg for 4 days (days 2-5) omeprazole magnesium [Prilosec OTC] 20 mg tablet,delayed release (DR/EC) 20 mg PO BID Qty: 30 0RF ondansetron 4 mg tablet,disintegrating 4 mg PO Q8H Qty: 6 0RF albuterol sulfate 90 mcg/actuation HFA aerosol inhaler 2 puff inhalation Q4-6H PRN (Reason: shortness of breath or wheezing) Qty: 8.5 0RF omeprazole 20 mg tablet,delayed release (DR/EC) 20 mg PO DAILY Qty: 30 0RF doxycycline hyclate 100 mg capsule 100 mg PO DAILY Qty: 13 0RF nitrofurantoin monohyd/m-cryst [Macrobid] 100 mg capsule 100 mg PO BID Qty: 13 0RF Rx Instructions: must administer with a meal/food ondansetron HCl 4 mg tablet 4 mg PO Q6H PRN (Reason: nausea and vomiting) Qty: 7 0RF Breo Ellipta 200-25 mcg/dose blister with device 1 inh inhalation DAILY clonidine HCl 0.1 mg tablet 0.1 mg PO TID hydroxyzine HCl 25 mg tablet 25 mg PO BEDTIME methylphenidate HCl [Concerta] 27 mg tablet extended release 24hr 27 mg PO DAILY Latuda 60 mg tablet 60 mg PO DAILY Rx Instructions: must administer with food (at least 350 calories) tolterodine 4 mg capsule,extended release 24hr 4 mg PO DAILY 90 Days Qty: 90 1RF
[2022-04-12 18:46] VITALS: BP 106/63; PULSE 110; RESP 16; TEMP 38.4; O2SAT 98
[2022-04-12] MEDS: Acetaminophen 325 MG TABLET 650 MG PO (18:55)
[2022-04-12 19:08] LABS: Appearance Urine CLEAR; Color Urine YELLOW; Glucose Urine UA NEG (NEG); Leukocyte Esterase Urine NEG (NEG); Nitrite Urine NEG (NEG); PH >= 9.0 (5.0-8.0); UACC Culture Trigger NO; Urine Blood 1+ (NEG); Urine Ketones 15 MG/DL (NEG); Urine Protein TRACE MG/DL (NEG-TRACE)
[2022-04-12 19:10] LABS: UPreg QC Valid YES; Urine Pregnancy NEGATIVE (NEGATIVE)
[2022-04-12] MEDS: Ibuprofen 600 MG TABLET PO (19:11)
[2022-04-12 19:15] LABS: Bacteria Urine 1+ /LPF; Squamous Epithelial Cell Urine 1+ /LPF; WBC Urine 0 /HPF (0-4)
[2022-04-12 19:17] VITALS: O2SAT 98
[2022-04-12 19:31] LABS: Strep A Nucleic Acid Negative (Negative)
[2022-04-12 19:51] VITALS: BP 119/69; PULSE 106; RESP 16; TEMP 37.8; O2SAT 99
== END 2022-04-12 20:09 | disposition home or self-care (01) ==
PROVIDERS: Emergency Provider Internal Medicine
DX: J40 Bronchitis, not specified as acute or chronic (principal); R07.89 Other chest pain; Z20.822 Contact with and (suspected) exposure to COVID-19; Z79.899 Other long term (current) drug therapy
CPT/HCPCS: 36415; 71045; 80048; 81001; 81003; 81025; 85025; 87502; 87635; 87651; 99285

== ENCOUNTER 2022-06-12 16:42 | Emergency (ER) | payer MEDICAID, SELFPAY ==
--- NOTE | ~2022-06-12 | CT_ITS ---
EXAMINATION: CT ABDOMEN AND PELVIS WITHOUT CONTRAST CLINICAL INFORMATION: Left-sided pain COMPARISON: 10/23/2021 TECHNIQUE: Multidetector volumetric imaging was performed from the superior aspect of the liver through the pubic symphysis. Sagittal and coronal reformatted images were obtained on the technologist's workstation. This CT examination was performed using dose optimization techniques as appropriate, variously including the following: *Automated exposure control *Adjustment of mA and/or kV according to patient size (this includes techniques or standardized protocols for targeted exams where dose is matched to indication/reason for exam; i.e. extremities or head) *Use of iterative reconstruction technique DLP: 820 mGy-cm FINDINGS: LUNG BASES: The visualized lung bases are unremarkable. LIVER, GALLBLADDER, AND BILIARY TREE: The liver is normal in size, shape, and attenuation. No focal hepatic lesion or biliary ductal dilatation is present. The gallbladder is unremarkable with no evidence of radiopaque gallstones, gallbladder wall thickening, or obvious pericholecystic inflammatory changes. PANCREAS: Unremarkable. SPLEEN: Unremarkable. ADRENAL GLANDS: Unremarkable. KIDNEYS AND URETERS: The kidneys are normal in size, shape, and attenuation. No hydronephrosis, hydroureter, or calculi seen. No perinephric stranding. BLADDER: Unremarkable. GASTROINTESTINAL TRACT: The stomach is unremarkable. Normal caliber small bowel. No obstruction. No colonic wall thickening or acute inflammatory change. Normal appendix. No free air or free fluid. ABDOMINAL WALL: No significant hernia is appreciated. LYMPH NODES: Normal. VASCULAR: Unremarkable. PELVIC VISCERA: Anteverted uterus with IUD in place. OSSEOUS STRUCTURES: No acute or suspicious osseous abnormality. CT/CT abdomen pelvis wo con IMPRESSION: No acute finding in the abdomen or pelvis. No inflammatory change. No hydronephrosis or nephrolithiasis. Fleischner guidelines were followed.
--- NOTE | ~2022-06-12 | CT_ITS ---
EXAMINATION: CT HEAD WITHOUT CONTRAST CLINICAL INFORMATION: Headache. Dizziness. COMPARISON: None. TECHNIQUE: Contiguous axial imaging was performed from the skull base to vertex without intravenous contrast. This CT examination was performed using dose optimization techniques as appropriate, variously including the following: * Automated exposure control * Adjustment of mA and/or kV according to patient size (this includes techniques or standardized protocols for targeted exams where dose is matched to indication/reason for exam; i.e. extremities or head) Use of iterative reconstruction technique DLP: 656 mGy-cm. FINDINGS: There is no evidence of acute intracranial hemorrhage or territorial infarction. No abnormal mass effect or midline shift is seen. Gale to white matter differentiation is well preserved. No extra-axial fluid collections are identified. No hydrocephalus. No significant volume loss. There is no abnormal attenuation within the brain parenchyma. The osseous structures and soft tissues are normal. The mastoid air cells and visualized portions of the paranasal sinuses are well aerated. CT/CT head/brain wo con IMPRESSION: No acute intracranial pathology.
[2022-06-12 18:55] VITALS: BP 111/70; PULSE 78; RESP 16; TEMP 36.2; O2SAT 98; BMI 40.5
[2022-06-12 21:44] VITALS: BP 141/76; PULSE 68; O2SAT 100
[2022-06-12 22:00] LABS: Appearance Urine Clear; Color Urine Yellow; Glucose Urine UA Negative (Negative); Leukocyte Esterase Urine Negative (Negative); Nitrite Urine Negative (Negative); Specific Gravity - Urine >= 1.030 (1.005-1.025); Urine Blood Trace (Negative); Urine Ketones Negative (Negative); Urine Protein Negative (Neg-Trace)
[2022-06-12 22:10] LABS: WBC Urine 0-5 /HPF (0-5)
[2022-06-12 22:11] LABS: Bacteria Urine 1+ (None Seen); Hyaline Casts Urine 0-2 /LPF (0-2); RBC Urine 0-2 /HPF (0-2); Squamous Epithelial Cell Urine 0-2 /HPF (0-2)
[2022-06-12 23:09] VITALS: BP 124/71; PULSE 51; RESP 16; TEMP 36.8; O2SAT 98
--- NOTE | 2022-06-12 23:17 | ECG_ITS ---
Test Reason : UTI Blood Pressure : / mmHG Vent. Rate : 055 BPM Atrial Rate : 055 BPM P-R Int : 146 ms QRS Dur : 102 ms QT Int : 444 ms P-R-T Axes : 048 010 019 degrees QTc Int : 424 ms Sinus bradycardia with sinus arrhythmia Incomplete right bundle branch block Nonspecific T wave abnormality Abnormal ECG When compared with ECG of 25-FEB-2021 18:25, No significant change was found Referred By: Cheri Barrett Electronically Signed By:SAM RKAMER
[2022-06-12 23:53] LABS: MANUAL DIFF FLAG NO
[2022-06-12 23:54] LABS: Basophils Absolute Auto 0.1 X10*3/uL (0.0-0.2); Basophils Percent Auto 0.5 % (0-2); Eosinophils Absolute Auto 0.2 X10*3/uL (0.0-0.4); Eosinophils Percent Auto 1.6 % (0-4); Hematocrit 43.2 % (37.0-47.0); Hemoglobin 14.2 g/dl (12.0-16.0); Imm Gran Abs Auto 0.02 X10*3/uL (0.00-0.03); Imm Gran Pct Auto 0.2 % (0.0-0.4); Lymphocytes Absolute Auto 2.3 X10*3/uL (1.2-4.9); Lymphocytes Percent Auto 24.5 % (20-40); Mean Corpuscular HGB Conc 32.9 g/dl (31.0-35.0); Mean Corpuscular Hemoglobin 30.5 pg (27.0-33.0); Mean Corpuscular Volume 92.9 fL (80.0-98.0); Mean Platelet Volume 10.7 fL (9.4-12.3); Monocytes Absolute Auto 0.7 X10*3/uL (0.1-1.2); Monocytes Percent Auto 7.5 % (2-11); Neutrophils Absolute Auto 6.1 x10*3/uL (2.0-8.3); Neutrophils Percent Auto 65.7 % (45-73); Platelet Count 239 X10*3/uL (160-400); Red Blood Count 4.65 X10*6/uL (4.20-5.50); Red Cell Distribution Width 13.2 % (11.0-16.0); White Blood Count 9.3 X10*3/uL (4.8-10.8)
[2022-06-13 00:10] LABS: COVID-19 Test Negative (Negative)
[2022-06-13 00:13] LABS: Troponin-I High Sensitivity < 3.5 ng/L (<3.5-17.0)
[2022-06-13 00:28] LABS: Alanine Aminotransferase 16 U/L (0-31); Albumin Level 4.1 g/dL (3.5-5.0); Alkaline Phosphatase 85 U/L (39-117); Anion Gap 15 (12-20); Aspartate Amino Transferase 13 U/L (5-31); Bilirubin Total 0.6 mg/dL (0.0-1.0); Blood Urea Nitrogen 12 mg/dL (9-16); Calcium 8.7 mg/dL (8.4-10.2); Carbon Dioxide 22 mmol/L (22-29); Chloride 108 mmol/L (96-108); Creatinine Clr Calc Pharmacy 116.7; Estimated Glomerular Filt Rate > 60; Glucose Random 98 mg/dL (60-115); Magnesium 2.2 mg/dL (1.6-2.6); Potassium 3.9 mmol/L (3.3-5.1); Sodium 141 mmol/L (135-145); Total Protein 6.9 g/dL (6.5-8.0)
[2022-06-13 00:30] VITALS: BP 118/71; PULSE 95; RESP 16; TEMP 36.8; O2SAT 98
--- NOTE | 2022-06-13 01:18 | ED.FEMALEGU ---
HPI - Female Genitourinary General Chief complaint: Urogenital-Female <GEETHA Brewster - Last Filed: 06/13/22 01:57> Stated complaint: quest uti <GEETHA Brewster - Last Filed: 06/13/22 01:57> Time Seen by Provider: 06/12/22 17:20 <GEETHA Brewster - Last Filed: 06/13/22 01:57> Source: patient <GEETHA Brewster Last Filed: 06/13/22 01:57> Mode of arrival: ambulatory <GEETHA Brewster Last Filed: 06/13/22 01:57> Limitations: no limitations <GEETHA Brewster Last Filed: 06/13/22 01:57> History of Present Illness HPI Narrative: This is a 31-year-old female with a history significant for stress incontinence, overactive bladder who presents to emergency department today with multiple medical complaints X1.5 weeks. Patient tells me that she has been having left lower abdomen pain described as crmaping radiating to her left flank, somewhat relieved by lying on her right side pain is intermittent in nature and has been this way for a week and a half. Additionally she reports increased urinary frequency and urgency, feels like a uti she says. She also tells me that she has a diffuse headache and has been experiencing dizziness described as a lightheadedness, no vision changes or trauma and feels like typical. She states that she feels nauseous but attributes this to not eating much today. She tells me that she experienced some chest discomfort however has subsided. Denies fever, chills, vision changes, numbness, weakness back pain, shortness of breath, dysuria, burning, hematuria, or vaginal bleeding. <GEETHA Brewster Last Filed: 06/13/22 01:57> Related Data Home medications: Home Medications Medication Instructions Recorded Confirmed clonidine HCl 0.1 mg tablet 0.1 mg PO TID 09/25/20 11/20/20 fluticasone furoate 200 1 inh inhalation DAILY 09/25/20 11/20/20 mcg-vilanterol 25 mcg/dose inhalation powder (Breo Ellipta) hydroxyzine HCl 25 mg tablet 25 mg PO BEDTIME 09/25/20 11/20/20 lurasidone 60 mg tablet (Latuda) 60 mg PO DAILY 09/25/20 11/20/20 methylphenidate HCl 27 mg 27 mg PO DAILY 09/25/20 11/20/20 tablet,extended release 24 hr (Concerta) Previous Rx's Medication Instructions Recorded albuterol sulfate 90 mcg/actuation 2 puff inhalation Q4-6H PRN 11/20/20 aerosol inhaler (ProAir HFA) shortness of breath or wheezing #8.5 grams azithromycin 250 mg tablet 250 mg PO DAILY 5 days #6 tabs 11/20/20 (Zithromax Z-Yogesh) doxycycline monohydrate 100 mg 100 mg PO BID 10 days #20 caps 11/20/20 capsule prednisone 20 mg tablet 60 mg PO DAILY 5 days #15 tabs 11/20/20 tolterodine 4 mg capsule,extended 4 mg PO DAILY 90 days #90 caps 01/15/21 release 24 hr cyclobenzaprine 5 mg tablet 5 mg PO TID PRN muscle spasm #14 02/25/21 tabs ibuprofen 800 mg tablet 800 mg PO Q8H PRN pain #30 tabs 02/25/21 lidocaine 4 % topical patch 1 patch topical Q24H PRN pain #15 02/25/21 ea azithromycin 250 mg tablet See Rx Instructions PO .COMPLEX #6 07/18/21 (Zithromax Z-Yogesh) tabs omeprazole magnesium 20 mg 20 mg PO BID #30 tabs 07/18/21 tablet,delayed release (Prilosec OTC) omeprazole 20 mg tablet,delayed 20 mg PO DAILY #30 tabs 07/20/21 release albuterol sulfate 90 mcg/actuation 2 puff inhalation Q4-6H PRN 10/23/21 aerosol inhaler shortness of breath or wheezing #8.5 grams ondansetron 4 mg disintegrating 4 mg PO Q8H #6 tabs 10/23/21 tablet doxycycline hyclate 100 mg capsule 100 mg PO DAILY #13 caps 01/09/22 nitrofurantoin 100 mg PO BID #13 caps 01/09/22 monohydrate/macrocrystals 100 mg capsule (Macrobid) ondansetron HCl 4 mg tablet 4 mg PO Q6H PRN nausea and 01/09/22 vomiting #7 tabs cefuroxime axetil 500 mg tablet 500 mg PO BID #20 tabs 04/12/22 ibuprofen 600 mg tablet 600 mg PO Q6H PRN pain #20 tabs 04/12/22 ondansetron 4 mg disintegrating 4 mg PO Q6-8H PRN nausea and 04/12/22 tablet vomiting #7 tabs lorazepam 1 mg tablet (Ativan) 1 mg PO BID PRN anxiety #20 tabs 06/13/22 ondansetron 4 mg disintegrating 4 mg PO Q6-8H PRN nausea and 06/13/22 tablet vomiting #20 tabs <GEETHA Brewster Last Filed: 06/13/22 01:57> Allergies/Adverse reactions: Allergies Allergy/AdvReac Type Severity Reaction Status Date / Time amoxicillin [AMOXICILLIN] Allergy Unknown VOMITING Verified 01/08/22 20:28 pollen extracts [POLLEN] Allergy Unknown ITCHY EYES Verified 01/08/22 20:28 <GEETHA Brewster Last Filed: 06/13/22 01:57> Review of Systems Review of Systems: Constitutional : No Weight loss, No Fever, No Chills, No Fatigue, No Malaise ENT/Mouth : No sore throat, No Rhinorrhea Eyes: No Eye Pain, No Swelling, No Redness Cardiovascular : + Chest Pain, No SOB, No Dyspnea on Exertion, No Orthopnea, No Edema, No Palpitations Respiratory : No Cough, No Sputum, No Wheezing Gastrointestinal : No Nausea, No Vomiting, No Diarrhea, No Constipation, + abdominal Pain, No Hematochezia, No Melena Genitourinary : No Dysuria, + Urinary Frequency, No Hematuria, Musculoskeletal : No joint pain, No Myalgias, No Joint Swelling, + flank pain Skin : No Skin Lesions, No rash Neuro : No Weakness, No Numbness, + Dizziness, + Headache All other systems reviewed and are negative <GEETHA Brewster Last Filed: 06/13/22 01:57> Yes all other systems are reviewed and are negative <GEETHA Brewster Last Filed: 06/13/22 01:57> [facility] Past Medical History Attestation statement: The following information was validated with the patient. <GEETHA Brewster Last Filed: 06/13/22 01:57> Source: old records reviewed and nursing notes reviewed <GEETHA Brewster - Last Filed: 06/13/22 01:57> Medical History: Medical History ADHD Allergic rhinosinusitis Asthma Bipolar 1 disorder Borderline personality disorder Depression Insomnia DAX (obstructive sleep apnea) PTSD (post-traumatic stress disorder) <GEETHA Brewster - Last Filed: 06/13/22 01:57> Surgical History: Surgical History History of oral surgery Hx of adenoidectomy Hx of tonsillectomy <GEETHA Brewster - Last Filed: 06/13/22 01:57> Social History Social History: Social History Alcohol intake: never Advance Directives: No <GEETHA Brewster - Last Filed: 06/13/22 01:57> Physical Exam Vital Signs: Vital Signs: Last Vital Signs Temp 97.8 F 06/13/22 06:00 Pulse 59 06/13/22 06:00 Resp 16 06/13/22 06:00 BP 114/51 L 06/13/22 06:00 Pulse Ox 98 06/13/22 06:00 O2 Del Method 06/13/22 06:00 BMI result Body Mass Index 40.5 vss <GEETHA Brewster - Last Filed: 06/13/22 01:57> Vital Signs: Last Vital Signs Temp 97.8 F 06/13/22 06:00 Pulse 59 06/13/22 06:00 Resp 16 06/13/22 06:00 BP 114/51 L 06/13/22 06:00 Pulse Ox 98 06/13/22 06:00 O2 Del Method 06/13/22 06:00 BMI result Body Mass Index 40.5 <Octaviano Jung MD - Last Filed: 06/13/22 06:18> Appearance: Alert.? Oriented X3.? No acute distress.? Head: Normocephalic, atraumatic, no step-offs or deformities Eyes: Pupils equal, round and reactive to light.? Extraocular movements intact Neck: Normal inspection.? Neck supple.? CVS: Normal heart rate and rhythm.? Pulses normal.? Respiratory: No respiratory distress.? Breath sounds normal.? Abdomen: Soft and nontender.? Skin: Skin warm and dry.? Normal skin color.? Normal skin turgor.? Extremities: No lower extremity edema.? No calf ttp, negative John. 5/5 strength to bilateral upper and lower extremities Back: No CVA tenderness or midline tenderness. Neuro: Oriented X 3.? No motor deficit.? No sensory deficit. CN 2-12 intact. Normal [id number], [id number], steady tandem gait. Negative pronator drift and Romberg. <GEETHA Brewster - Last Filed: 06/13/22 01:57> Course Reevaluation(s) Reevaluation #1: CBC within normal limits. History of no acute electrolyte abnormalities require intervention, troponin negative, EKG nonischemic unlikely ACS. Urine without infection. Patient is noted to be COVID positive. CT of the head and brain with no acute findings. As patient is complaining about flank pain that is not resolving a CT of the abdomen and pelvis will be obtained to rule out kidney stones. <GEETHA Brewster - Last Filed: 06/13/22 01:57> Time: 01:21 <GEETHA Brewster - Last Filed: 06/13/22 01:57> Reevaluation #2: Sign-out given to doctors Fabiana. Pending orthos and CT abd and pelvis. [place] home <GEETHA Brewster - Last Filed: 06/13/22 01:57> Time: 01:55 <GEETHA Brewster - Last Filed: 06/13/22 01:57> MDM - Female Genitourinary MDM Narrative Medical decision making narrative: 2039 31-year-old female presents with multiple complaints, reporting headache, dizziness described as lightheadedness, chest discomfort, left-sided flank pain as well as urinary frequency and urgency times a few days worsening. Physical examination benign. Will rule out obstructing uropathy, kidney stones, UTI. Based off patient history and physical examination unlikely that this is posterior stroke, intracranial hemorrhage. Unlikely that this is ACS. Patient is PERC negative unlikely PE. History and physical not consistent with ovarian torsion Plan at this time is basic labs, CT of the head and brain, CT of the abdomen and pelvis, urine, orthostatics vital signs, fluids, troponin. <GEETHA Brewster - Last Filed: 06/13/22 01:57> 2317 31-year-old female presents with multiple complaints, reporting headache, dizziness described as lightheadedness, chest discomfort, left-sided flank pain as well as urinary frequency and urgency times a few days worsening. Physical examination benign. Will rule out obstructing uropathy, kidney stones, UTI. Based off patient history and physical examination unlikely that this is posterior stroke, intracranial hemorrhage. Unlikely that this is ACS. Patient is PERC negative unlikely PE. History and physical not consistent with ovarian torsion Plan at this time is basic labs, CT of the head and brain, CT of the abdomen and pelvis, urine, orthostatics vital signs, fluids, troponin. 0600 Patient seen HPI reviewed patient use cannabis with history of anxiety vomiting after using cannabis gets better after hot shower with history of same for long time workup is essentially negative felt better after Ativan and Compazine discharge patient home <Octaviano Jung MD - Last Filed: 06/13/22 06:18> Medical Records Attestation: I reviewed the patient's medical records. <GEETHA Brewster - Last Filed: 06/13/22 01:57> Lab Data Attestation: I reviewed the patient's lab results. <GEETHA Brewster - Last Filed: 06/13/22 01:57> Result diagrams: : 06/12/22 23:47 06/12/22 23:55 <GEETHA Brewster - Last Filed: 06/13/22 01:57> Labs: Lab Results 06/12/22 06/12/22 06/12/22 Range/Units 21:50 23:47 23:47 WBC 9.3 (4.8-10.8) X10*3/uL RBC 4.65 (4.20-5.50) X10*6/uL Hgb 14.2 (12.0-16.0) g/dl Hct 43.2 (37.0-47.0) % MCV 92.9 (80.0-98.0) fL MCH 30.5 (27.0-33.0) pg MCHC 32.9 (31.0-35.0) g/dl RDW 13.2 (11.0-16.0) % Plt Count 239 (160-400) X10*3/uL MPV 10.7 (9.4-12.3) fL Immature Gran % (Auto) 0.2 (0.0-0.4) % Neut % (Auto) 65.7 (45-73) % Lymph % (Auto) 24.5 (20-40) % [place] % (Auto) 7.5 (2-11) % Eos % (Auto) 1.6 (0-4) % Baso % (Auto) 0.5 (0-2) % Lymph # (Auto) 2.3 (1.2-4.9) X10*3/uL [place] # (Auto) 0.7 (0.1-1.2) X10*3/uL Eos # (Auto) 0.2 (0.0-0.4) X10*3/uL Baso # (Auto) 0.1 (0.0-0.2) X10*3/uL Abs Immat Gran (auto) 0.02 (0.00-0.03) X10*3/uL Absolute Neuts (auto) 6.1 (2.0-8.3) x10*3/uL Absolute Nucleated RBC 0.000 (0.0-0.012) X10*3/uL Nucleated RBC % (auto) 0.0 (0.0-0.2) /100WBC Sodium (135-145) mmol/L Potassium (3.3-5.1) mmol/L Chloride (96-108) mmol/L Carbon Dioxide (22-29) mmol/L Anion Gap (12-20) BUN (9-16) mg/dL Creatinine (0.5-1.4) mg/dL Estim Creat Clear Calc Estimated GFR Random Glucose (60-115) mg/dL Calcium (8.4-10.2) mg/dL Magnesium (1.6-2.6) mg/dL Total Bilirubin (0.0-1.0) mg/dL AST (5-31) U/L ALT (0-31) U/L Alkaline Phosphatase (39-117) U/L Troponin I High Sens (<3.5-17.0) ng/L Total Protein (6.5-8.0) g/dL Albumin (3.5-5.0) g/dL Beta HCG, Quant mIU/mL Urine Color Yellow Urine Appearance Clear Urine pH 6.0 (5.0-8.0) Ur Specific [place] >= 1.030 H (1.005-1.025) Urine Protein Negative (Neg-Trace) mg/dL Urine Glucose (UA) Negative (Negative) mg/dL Urine Ketones Negative (Negative) mg/dL Urine Blood Trace (Negative) Urine Nitrite Negative (Negative) Ur Leukocyte Esterase Negative (Negative) Urine RBC 0-2 (0-2) /HPF Urine WBC 0-5 (0-5) /HPF Ur Squamous Epith Cells 0-2 (0-2) /HPF Urine Bacteria 1+ (None Seen) Hyaline Casts 0-2 (0-2) /LPF COVID-19 (ROLLY) Negative (Negative) COVID-19 Clin Com See Note 06/12/22 06/12/22 Range/Units 23:47 23:55 WBC (4.8-10.8) X10*3/uL RBC (4.20-5.50) X10*6/uL Hgb (12.0-16.0) g/dl Hct (37.0-47.0) % MCV (80.0-98.0) fL MCH (27.0-33.0) pg MCHC (31.0-35.0) g/dl RDW (11.0-16.0) % Plt Count (160-400) X10*3/uL MPV (9.4-12.3) fL Immature Gran % (Auto) (0.0-0.4) % Neut % (Auto) (45-73) % Lymph % (Auto) (20-40) % [place] % (Auto) (2-11) % Eos % (Auto) (0-4) % Baso % (Auto) (0-2) % Lymph # (Auto) (1.2-4.9) X10*3/uL [place] # (Auto) (0.1-1.2) X10*3/uL Eos # (Auto) (0.0-0.4) X10*3/uL Baso # (Auto) (0.0-0.2) X10*3/uL Abs Immat Gran (auto) (0.00-0.03) X10*3/uL Absolute Neuts (auto) (2.0-8.3) x10*3/uL Absolute Nucleated RBC (0.0-0.012) X10*3/uL Nucleated RBC % (auto) (0.0-0.2) /100WBC Sodium 141 (135-145) mmol/L Potassium 3.9 (3.3-5.1) mmol/L Chloride 108 (96-108) mmol/L Carbon Dioxide 22 (22-29) mmol/L Anion Gap 15 (12-20) BUN 12 (9-16) mg/dL Creatinine 0.76 (0.5-1.4) mg/dL Estim Creat Clear Calc 116.7 Estimated GFR > 60 Random Glucose 98 (60-115) mg/dL Calcium 8.7 (8.4-10.2) mg/dL Magnesium 2.2 (1.6-2.6) mg/dL Total Bilirubin 0.6 (0.0-1.0) mg/dL AST 13 D (5-31) U/L ALT 16 (0-31) U/L Alkaline Phosphatase 85 (39-117) U/L Troponin I High Sens < 3.5 (<3.5-17.0) ng/L Total Protein 6.9 (6.5-8.0) g/dL Albumin 4.1 (3.5-5.0) g/dL Beta HCG, Quant < 2 mIU/mL Urine Color Urine Appearance Urine pH (5.0-8.0) Ur Specific [place] (1.005-1.025) Urine Protein (Neg-Trace) mg/dL Urine Glucose (UA) (Negative) mg/dL Urine Ketones (Negative) mg/dL Urine Blood (Negative) Urine Nitrite (Negative) Ur Leukocyte Esterase (Negative) Urine RBC (0-2) /HPF Urine WBC (0-5) /HPF Ur Squamous Epith Cells (0-2) /HPF Urine Bacteria (None Seen) Hyaline Casts (0-2) /LPF COVID-19 (ROLLY) (Negative) COVID-19 Clin Com <GEETHA Brewster - Last Filed: 06/13/22 01:57> Lab Results 06/12/22 06/12/22 06/12/22 Range/Units 21:50 23:47 23:47 WBC 9.3 (4.8-10.8) X10*3/uL RBC 4.65 (4.20-5.50) X10*6/uL Hgb 14.2 (12.0-16.0) g/dl Hct 43.2 (37.0-47.0) % MCV 92.9 (80.0-98.0) fL MCH 30.5 (27.0-33.0) pg MCHC 32.9 (31.0-35.0) g/dl RDW 13.2 (11.0-16.0) % Plt Count 239 (160-400) X10*3/uL MPV 10.7 (9.4-12.3) fL Immature Gran % (Auto) 0.2 (0.0-0.4) % Neut % (Auto) 65.7 (45-73) % Lymph % (Auto) 24.5 (20-40) % [place] % (Auto) 7.5 (2-11) % Eos % (Auto) 1.6 (0-4) % Baso % (Auto) 0.5 (0-2) % Lymph # (Auto) 2.3 (1.2-4.9) X10*3/uL Labette # (Auto) 0.7 (0.1-1.2) X10*3/uL Eos # (Auto) 0.2 (0.0-0.4) X10*3/uL Baso # (Auto) 0.1 (0.0-0.2) X10*3/uL Abs Immat Gran (auto) 0.02 (0.00-0.03) X10*3/uL Absolute Neuts (auto) 6.1 (2.0-8.3) x10*3/uL Absolute Nucleated RBC 0.000 (0.0-0.012) X10*3/uL Nucleated RBC % (auto) 0.0 (0.0-0.2) /100WBC Sodium (135-145) mmol/L Potassium (3.3-5.1) mmol/L Chloride (96-108) mmol/L Carbon Dioxide (22-29) mmol/L Anion Gap (12-20) BUN (9-16) mg/dL Creatinine (0.5-1.4) mg/dL Estim Creat Clear Calc Estimated GFR Random Glucose (60-115) mg/dL Calcium (8.4-10.2) mg/dL Magnesium (1.6-2.6) mg/dL Total Bilirubin (0.0-1.0) mg/dL AST (5-31) U/L ALT (0-31) U/L Alkaline Phosphatase (39-117) U/L Troponin I High Sens (<3.5-17.0) ng/L Total Protein (6.5-8.0) g/dL Albumin (3.5-5.0) g/dL Beta HCG, Quant mIU/mL Urine Color Yellow Urine Appearance Clear Urine pH 6.0 (5.0-8.0) Ur Specific [place] >= 1.030 H (1.005-1.025) Urine Protein Negative (Neg-Trace) mg/dL Urine Glucose (UA) Negative (Negative) mg/dL Urine Ketones Negative (Negative) mg/dL Urine Blood Trace (Negative) Urine Nitrite Negative (Negative) Ur Leukocyte Esterase Negative (Negative) Urine RBC 0-2 (0-2) /HPF Urine WBC 0-5 (0-5) /HPF Ur Squamous Epith Cells 0-2 (0-2) /HPF Urine Bacteria 1+ (None Seen) Hyaline Casts 0-2 (0-2) /LPF COVID-19 (ORLLY) Negative (Negative) COVID-19 Clin Com See Note 06/12/22 06/12/22 Range/Units 23:47 23:55 WBC (4.8-10.8) X10*3/uL RBC (4.20-5.50) X10*6/uL Hgb (12.0-16.0) g/dl Hct (37.0-47.0) % MCV (80.0-98.0) fL MCH (27.0-33.0) pg MCHC (31.0-35.0) g/dl RDW (11.0-16.0) % Plt Count (160-400) X10*3/uL MPV (9.4-12.3) fL Immature Gran % (Auto) (0.0-0.4) % Neut % (Auto) (45-73) % Lymph % (Auto) (20-40) % [place] % (Auto) (2-11) % Eos % (Auto) (0-4) % Baso % (Auto) (0-2) % Lymph # (Auto) (1.2-4.9) X10*3/uL [place] # (Auto) (0.1-1.2) X10*3/uL Eos # (Auto) (0.0-0.4) X10*3/uL Baso # (Auto) (0.0-0.2) X10*3/uL Abs Immat Gran (auto) (0.00-0.03) X10*3/uL Absolute Neuts (auto) (2.0-8.3) x10*3/uL Absolute Nucleated RBC (0.0-0.012) X10*3/uL Nucleated RBC % (auto) (0.0-0.2) /100WBC Sodium 141 (135-145) mmol/L Potassium 3.9 (3.3-5.1) mmol/L Chloride 108 (96-108) mmol/L Carbon Dioxide 22 (22-29) mmol/L Anion Gap 15 (12-20) BUN 12 (9-16) mg/dL Creatinine 0.76 (0.5-1.4) mg/dL Estim Creat Clear Calc 116.7 Estimated GFR > 60 Random Glucose 98 (60-115) mg/dL Calcium 8.7 (8.4-10.2) mg/dL Magnesium 2.2 (1.6-2.6) mg/dL Total Bilirubin 0.6 (0.0-1.0) mg/dL AST 13 D (5-31) U/L ALT 16 (0-31) U/L Alkaline Phosphatase 85 (39-117) U/L Troponin I High Sens < 3.5 (<3.5-17.0) ng/L Total Protein 6.9 (6.5-8.0) g/dL Albumin 4.1 (3.5-5.0) g/dL Beta HCG, Quant < 2 mIU/mL Urine Color Urine Appearance Urine pH (5.0-8.0) Ur Specific [place] (1.005-1.025) Urine Protein (Neg-Trace) mg/dL Urine Glucose (UA) (Negative) mg/dL Urine Ketones (Negative) mg/dL Urine Blood (Negative) Urine Nitrite (Negative) Ur Leukocyte Esterase (Negative) Urine RBC (0-2) /HPF Urine WBC (0-5) /HPF Ur Squamous Epith Cells (0-2) /HPF Urine Bacteria (None Seen) Hyaline Casts (0-2) /LPF COVID-19 (ROLLY) (Negative) COVID-19 Clin Com <Octaviano Jung MD - Last Filed: 06/13/22 06:18> ECG Data Attestation: I personally reviewed and interpreted this ECG as follows: <GEETHA Brewster - Last Filed: 06/13/22 01:57> ECG interpretation date: 06/13/22 <GEETHA Brewster - Last Filed: 06/13/22 01:57> ECG interpretation time: 01:21 <GEETHA Brewster - Last Filed: 06/13/22 01:57> Prior ECG tracings: available for review <GEETHA Brewster - Last Filed: 06/13/22 01:57> Interpretation: Ventricular rate of 55, NH normal, QRS normal, QT/QTC normal. EKG with sinus bradycardia with sinus arrhythmia and an incomplete right bundle branch block, no ST elevations or inversions concerning for ischemia. No significant changes when compared to EKG of February 2021 <GEETHA Brewster - Last Filed: 06/13/22 01:57> Critical Care Time Critical Care Time Critical Care Time: No <GEETHA Brewster Last Filed: 06/13/22 01:57> Discharge Plan Discharge Clinical Impression: Cyclic vomiting syndrome, Cannabis abuse <GEETHA Brewster - Last Filed: 06/13/22 01:57> Patient Disposition: Home, Self-Care <GEETHA Brewster Last Filed: 06/13/22 01:57> Instructions: Cannabis Abuse (ED), Cyclic Vomiting Syndrome (ED) <GEETAH Brewster - Last Filed: 06/13/22 01:57> Additional Instructions: Stop smoking cannabis Medicine for nausea as prescribed Ativan for anxiety which causes vomiting Follow-up with PCP if not better Take your medications as prescribed. If you were prescribed antibiotics today, it is important that you take your medication to their entirety, do not skip any doses, do not finish them early. Follow-up with your primary care provider this week. Return to the emergency department with new or worsening symptoms. Such as fevers, chills, chest pain, shortness of breath, nausea, vomiting, dizziness, headache, vision changes, lethargy In case of emergency call 911 <GEETHA Brewster - Last Filed: 06/13/22 01:57> Prescriptions: New lorazepam [Ativan] 1 mg tablet 1 mg PO BID PRN (Reason: anxiety) Qty: 20 0RF ondansetron 4 mg tablet,disintegrating 4 mg PO Q6-8H PRN (Reason: nausea and vomiting) Qty: 20 0RF No Action lidocaine 4 % adhesive patch,medicated 1 patch topical Q24H PRN (Reason: pain) Qty: 15 0RF Rx Instructions: may leave on for up to 12 hrs ibuprofen 800 mg tablet 800 mg PO Q8H PRN (Reason: pain) Qty: 30 0RF cyclobenzaprine 5 mg tablet 5 mg PO TID PRN (Reason: muscle spasm) Qty: 14 0RF azithromycin [Zithromax Z-Yogesh] 250 mg tablet 250 mg PO DAILY 5 Days Qty: 6 0RF doxycycline monohydrate 100 mg capsule 100 mg PO BID 10 Days Qty: 20 0RF prednisone 20 mg tablet 60 mg PO DAILY 5 Days Qty: 15 0RF albuterol sulfate [ProAir HFA] 90 mcg/actuation HFA aerosol inhaler 2 puff inhalation Q4-6H PRN (Reason: shortness of breath or wheezing) Qty: 8.5 0RF azithromycin [Zithromax Z-Yogesh] 250 mg tablet See Rx Instructions .ROUTE .COMPLEX Qty: 6 0RF Rx Instructions: take 500 mg today (day 1), then 250 mg for 4 days (days 2-5) omeprazole magnesium [Prilosec OTC] 20 mg tablet,delayed release (DR/EC) 20 mg PO BID Qty: 30 0RF ondansetron 4 mg tablet,disintegrating 4 mg PO Q8H Qty: 6 0RF albuterol sulfate 90 mcg/actuation HFA aerosol inhaler 2 puff inhalation Q4-6H PRN (Reason: shortness of breath or wheezing) Qty: 8.5 0RF omeprazole 20 mg tablet,delayed release (DR/EC) 20 mg PO DAILY Qty: 30 0RF doxycycline hyclate 100 mg capsule 100 mg PO DAILY Qty: 13 0RF nitrofurantoin monohyd/m-cryst [Macrobid] 100 mg capsule 100 mg PO BID Qty: 13 0RF Rx Instructions: must administer with a meal/food ondansetron HCl 4 mg tablet 4 mg PO Q6H PRN (Reason: nausea and vomiting) Qty: 7 0RF ibuprofen 600 mg tablet 600 mg PO Q6H PRN (Reason: pain) Qty: 20 0RF cefuroxime axetil 500 mg tablet 500 mg PO BID Qty: 20 0RF ondansetron 4 mg tablet,disintegrating 4 mg PO Q6-8H PRN (Reason: nausea and vomiting) Qty: 7 0RF Breo Ellipta 200-25 mcg/dose blister with device 1 inh inhalation DAILY clonidine HCl 0.1 mg tablet 0.1 mg PO TID hydroxyzine HCl 25 mg tablet 25 mg PO BEDTIME methylphenidate HCl [Concerta] 27 mg tablet extended release 24hr 27 mg PO DAILY Latuda 60 mg tablet 60 mg PO DAILY Rx Instructions: must administer with food (at least 350 calories) tolterodine 4 mg capsule,extended release 24hr 4 mg PO DAILY 90 Days Qty: 90 1RF <GEETHA Brewster - Last Filed: 06/13/22 01:57> Referrals: [facility] [Primary Care Provider] - 2 days <GEETHA Brewster - Last Filed: 06/13/22 01:57> Stand Alone Forms: Work/School Release <GEETHA Brewster - Last Filed: 06/13/22 01:57>
[2022-06-13] MEDS: 0.9 % Sodium Chloride 1,000 ML 999 ML IV (01:28)
[2022-06-13] MEDS: Ketorolac Tromethamine 15 MG/ML VIAL 30 MG IVPUSH (01:35)
[2022-06-13] MEDS: Simethicone 80 MG TAB.CHEW 160 MG PO (01:35)
--- NOTE | 2022-06-13 01:41 | PC.NURSE ---
pt oob to bathroom with a steady gait. provider into assess pt. medicated per Mar. Will continue to monitor.
[2022-06-13 01:56] VITALS: BP 129/68; PULSE 60
[2022-06-13 01:57] VITALS: BP 126/75; BP 127/73; PULSE 63; PULSE 66
[2022-06-13 01:57] LABS: HCG Quantitative < 2 mIU/mL
[2022-06-13 01:59] VITALS: BP 127/73; PULSE 66; RESP 16; TEMP 36.7; O2SAT 97
[2022-06-13 04:00] VITALS: BP 134/62; PULSE 59; RESP 16; TEMP 36.7; O2SAT 98
--- NOTE | 2022-06-13 05:04 | PC.NURSE ---
provider into assess pt. pt continue to complain of discomfort. provider medicated per Mar.
[2022-06-13] MEDS: Midazolam HCl/PF 2 MG/2 ML VIAL IVPUSH (05:07)
[2022-06-13] MEDS: Prochlorperazine Edisylate 10 MG/2 ML VIAL IVPUSH (05:08)
[2022-06-13 06:00] VITALS: BP 114/51; PULSE 59; RESP 16; TEMP 36.6; O2SAT 98
--- NOTE | 2022-06-13 06:25 | PC.NURSE ---
reviewed discharge instructions with pt. pt verbalized understanding.
== END 2022-06-13 06:27 | disposition home or self-care (01) ==
PROVIDERS: Physician Assistant; Physician Assistant Medical; Emergency Provider Internal Medicine
DX: F12.188 Cannabis abuse with other cannabis-induced disorder (principal); N39.3 Stress incontinence (female) (male); R42 Dizziness and giddiness; N39.0 Urinary tract infection, site not specified; N32.81 Overactive bladder; R51.9 Headache, unspecified; R10.9 Unspecified abdominal pain; Z20.822 Contact with and (suspected) exposure to COVID-19; Z79.899 Other long term (current) drug therapy
CPT/HCPCS: 36415; 70450; 74176; 80053; 81001; 81003; 83735; 84484; 84702; 85025; 87635; 93005; 96361; 96374; 96375; 99285; J1885; J2250

== ENCOUNTER 2023-06-29 14:38 | Emergency (ER) | payer MEDICAID, SELFPAY ==
[2023-06-29 14:56] VITALS: BP 130/56; PULSE 81; RESP 18; TEMP 36.5; O2SAT 96; BMI 37.7
--- NOTE | 2023-06-29 14:56 | ED.GENADULT ---
HPI - General Adult General Chief complaint: Abdominal Pain Stated complaint: Diarrhea/Migraine Related Data Home Medications Medication Instructions Recorded Confirmed clonidine HCl 0.1 mg tablet 0.1 mg PO TID 09/25/20 11/20/20 fluticasone furoate 200 1 inh inhalation DAILY 09/25/20 11/20/20 mcg-vilanterol 25 mcg/dose inhalation powder (Breo Ellipta) hydroxyzine HCl 25 mg tablet 25 mg PO BEDTIME 09/25/20 11/20/20 lurasidone 60 mg tablet (Latuda) 60 mg PO DAILY 09/25/20 11/20/20 methylphenidate HCl 27 mg 27 mg PO DAILY 09/25/20 11/20/20 tablet,extended release 24 hr (Concerta) Previous Rx's Medication Instructions Recorded albuterol sulfate 90 mcg/actuation 2 puff inhalation Q4-6H PRN 11/20/20 aerosol inhaler (ProAir HFA) shortness of breath or wheezing #8.5 grams azithromycin 250 mg tablet 250 mg PO DAILY 5 days #6 tabs 11/20/20 (Zithromax Z-Yogesh) doxycycline monohydrate 100 mg 100 mg PO BID 10 days #20 caps 11/20/20 capsule prednisone 20 mg tablet 60 mg (3 x 20 mg) PO DAILY 5 days 11/20/20 #15 tabs tolterodine 4 mg capsule,extended 4 mg PO DAILY 90 days #90 caps 01/15/21 release 24 hr cyclobenzaprine 5 mg tablet 5 mg PO TID PRN muscle spasm #14 02/25/21 tabs ibuprofen 800 mg tablet 800 mg PO Q8H PRN pain #30 tabs 02/25/21 lidocaine 4 % topical patch 1 patch topical Q24H PRN pain #15 02/25/21 ea azithromycin 250 mg tablet See Rx Instructions PO .COMPLEX #6 07/18/21 (Zithromax Z-Yogesh) tabs omeprazole magnesium 20 mg 20 mg PO BID #30 tabs 07/18/21 tablet,delayed release (Prilosec OTC) omeprazole 20 mg tablet,delayed 20 mg PO DAILY #30 tabs 07/20/21 release albuterol sulfate 90 mcg/actuation 2 puff inhalation Q4-6H PRN 10/23/21 aerosol inhaler shortness of breath or wheezing #8.5 grams ondansetron 4 mg disintegrating 4 mg PO Q8H #6 tabs 10/23/21 tablet doxycycline hyclate 100 mg capsule 100 mg PO DAILY #13 caps 01/09/22 nitrofurantoin 100 mg PO BID #13 caps 01/09/22 monohydrate/macrocrystals 100 mg capsule (Macrobid) ondansetron HCl 4 mg tablet 4 mg PO Q6H PRN nausea and 01/09/22 vomiting #7 tabs cefuroxime axetil 500 mg tablet 500 mg PO BID #20 tabs 04/12/22 ibuprofen 600 mg tablet 600 mg PO Q6H PRN pain #20 tabs 04/12/22 ondansetron 4 mg disintegrating 4 mg PO Q6-8H PRN nausea and 04/12/22 tablet vomiting #7 tabs lorazepam 1 mg tablet (Ativan) 1 mg PO BID PRN anxiety #20 tabs 06/13/22 ondansetron 4 mg disintegrating 4 mg PO Q6-8H PRN nausea and 06/13/22 tablet vomiting #20 tabs Allergies Allergy/AdvReac Type Severity Reaction Status Date / Time amoxicillin [AMOXICILLIN] Allergy Unknown VOMITING Verified 06/29/23 14:56 pollen extracts [POLLEN] Allergy Unknown ITCHY EYES Verified 06/29/23 14:56 PMFSH Past Medical History Medical History ADHD Allergic rhinosinusitis Asthma Bipolar 1 disorder Borderline personality disorder Depression Insomnia DAX (obstructive sleep apnea) PTSD (post-traumatic stress disorder) Surgical History History of oral surgery Hx of adenoidectomy Hx of tonsillectomy Social History Social History Alcohol intake: never Substance Use Type: Marijuana Physical Exam ED Vital Signs: BMI result Body Mass Index 37.7 Course Course Course Narrative: This is an RME: Additional HPI, ROS, PE not included below will be deferred to primary provider. 33 year old female presenting with diarrhea since Wednesday, and migraines the past few weeks. She describes the migraines as on and off headaches that she feels globally. Reports her stomach feels hard as a rock and she can't keep much down. Also has associated left upper quadrant pain, nausea and vomiting. Pain is a 5/10 right now. Plan: labs, urine Medical Decision Making Lab Data 06/29/23 15:59 06/29/23 15:59 Labs: Lab Results 06/29/23 Range/Units 15:59 WBC 9.0 (4.8-10.8) X10*3/uL RBC 4.47 (4.20-5.50) X10*6/uL Hgb 13.9 (12.0-16.0) g/dl Hct 41.7 (37.0-47.0) % MCV 93.3 (80.0-98.0) fL MCH 31.1 (27.0-33.0) pg MCHC 33.3 (31.0-35.0) g/dl RDW 13.1 (11.0-16.0) % Plt Count 207 (160-400) X10*3/uL MPV 10.5 (9.4-12.3) fL Immature Gran % (Auto) 0.3 (0.0-0.4) % Neut % (Auto) 63.6 (45-73) % Lymph % (Auto) 24.9 (20-40) % [place] % (Auto) 9.2 (2-11) % Eos % (Auto) 1.7 (0-4) % Baso % (Auto) 0.3 (0-2) % Lymph # (Auto) 2.2 (1.2-4.9) X10*3/uL [place] # (Auto) 0.8 (0.1-1.2) X10*3/uL Eos # (Auto) 0.2 (0.0-0.4) X10*3/uL Baso # (Auto) 0.0 (0.0-0.2) X10*3/uL Abs Immat Gran (auto) 0.03 (0.00-0.03) X10*3/uL Absolute Neuts (auto) 5.7 (2.0-8.3) x10*3/uL Absolute Nucleated RBC 0.000 (0.0-0.012) X10*3/uL Nucleated RBC % (auto) 0.0 (0.0-0.2) /100WBC Sodium 138 (135-145) mmol/L Potassium 3.9 (3.3-5.1) mmol/L Chloride 112 H (96-108) mmol/L Carbon Dioxide 20 L (22-29) mmol/L Anion Gap 10 L (12-20) BUN 10 (9-16) mg/dL Creatinine 0.79 (0.5-1.4) mg/dL Estim Creat Clear Calc 105.7 Estimated GFR > 60 Random Glucose 99 (60-115) mg/dL Calcium 9.3 D (8.4-10.2) mg/dL Magnesium 2.1 (1.6-2.6) mg/dL Total Bilirubin 0.3 (0.0-1.0) mg/dL AST 17 (5-31) U/L ALT 20 (0-31) U/L Alkaline Phosphatase 83 (39-117) U/L Total Protein 7.0 (6.5-8.0) g/dL Albumin 4.0 (3.5-5.0) g/dL Lipase 12 (8-78) U/L Influenza Type A (PCR) NEGATIVE (Negative) Influenza Type B (PCR) NEGATIVE (Negative) RSV RNA Qual (PCR) NEGATIVE (Negative) SARS-CoV-2 RNA (RT-PCR) NEGATIVE (Negative) Discharge Plan Discharge Clinical Impression: Eloped from emergency department Patient Disposition: Elopement Prescriptions: No Action lidocaine 4 % adhesive patch,medicated 1 patch topical Q24H PRN (Reason: pain) Qty: 15 0RF Rx Instructions: may leave on for up to 12 hrs ibuprofen 800 mg tablet 800 mg PO Q8H PRN (Reason: pain) Qty: 30 0RF cyclobenzaprine 5 mg tablet 5 mg PO TID PRN (Reason: muscle spasm) Qty: 14 0RF azithromycin [Zithromax Z-Yogesh] 250 mg tablet 250 mg PO DAILY 5 Days Qty: 6 0RF doxycycline monohydrate 100 mg capsule 100 mg PO BID 10 Days Qty: 20 0RF prednisone 20 mg tablet 60 mg PO DAILY 5 Days Qty: 15 0RF albuterol sulfate [ProAir HFA] 90 mcg/actuation HFA aerosol inhaler 2 puff inhalation Q4-6H PRN (Reason: shortness of breath or wheezing) Qty: 8.5 0RF azithromycin [Zithromax Z-Yogesh] 250 mg tablet See Rx Instructions .ROUTE .COMPLEX Qty: 6 0RF Rx Instructions: take 500 mg today (day 1), then 250 mg for 4 days (days 2-5) omeprazole magnesium [Prilosec OTC] 20 mg tablet,delayed release (DR/EC) 20 mg PO BID Qty: 30 0RF ondansetron 4 mg tablet,disintegrating 4 mg PO Q8H Qty: 6 0RF albuterol sulfate 90 mcg/actuation HFA aerosol inhaler 2 puff inhalation Q4-6H PRN (Reason: shortness of breath or wheezing) Qty: 8.5 0RF omeprazole 20 mg tablet,delayed release (DR/EC) 20 mg PO DAILY Qty: 30 0RF doxycycline hyclate 100 mg capsule 100 mg PO DAILY Qty: 13 0RF nitrofurantoin monohyd/m-cryst [Macrobid] 100 mg capsule 100 mg PO BID Qty: 13 0RF Rx Instructions: must administer with a meal/food ondansetron HCl 4 mg tablet 4 mg PO Q6H PRN (Reason: nausea and vomiting) Qty: 7 0RF ibuprofen 600 mg tablet 600 mg PO Q6H PRN (Reason: pain) Qty: 20 0RF cefuroxime axetil 500 mg tablet 500 mg PO BID Qty: 20 0RF ondansetron 4 mg tablet,disintegrating 4 mg PO Q6-8H PRN (Reason: nausea and vomiting) Qty: 7 0RF lorazepam [Ativan] 1 mg tablet 1 mg PO BID PRN (Reason: anxiety) Qty: 20 0RF ondansetron 4 mg tablet,disintegrating 4 mg PO Q6-8H PRN (Reason: nausea and vomiting) Qty: 20 0RF Breo Ellipta 200-25 mcg/dose blister with device 1 inh inhalation DAILY clonidine HCl 0.1 mg tablet 0.1 mg PO TID hydroxyzine HCl 25 mg tablet 25 mg PO BEDTIME methylphenidate HCl [Concerta] 27 mg tablet extended release 24hr 27 mg PO DAILY Latuda 60 mg tablet 60 mg PO DAILY Rx Instructions: must administer with food (at least 350 calories) tolterodine 4 mg capsule,extended release 24hr 4 mg PO DAILY 90 Days Qty: 90 1RF Interventions: ED Discharge Assessment Last Done: 06/29/23 21:59 Discharge Date/Time: 06/29/23 20:00
[2023-06-29 16:07] LABS: MANUAL DIFF FLAG NO
[2023-06-29 16:08] LABS: Basophils Percent Auto 0.3 % (0-2); Eosinophils Absolute Auto 0.2 X10*3/uL (0.0-0.4); Eosinophils Percent Auto 1.7 % (0-4); Hematocrit 41.7 % (37.0-47.0); Hemoglobin 13.9 g/dl (12.0-16.0); Imm Gran Abs Auto 0.03 X10*3/uL (0.00-0.03); Imm Gran Pct Auto 0.3 % (0.0-0.4); Lymphocytes Absolute Auto 2.2 X10*3/uL (1.2-4.9); Lymphocytes Percent Auto 24.9 % (20-40); Mean Corpuscular HGB Conc 33.3 g/dl (31.0-35.0); Mean Corpuscular Hemoglobin 31.1 pg (27.0-33.0); Mean Corpuscular Volume 93.3 fL (80.0-98.0); Mean Platelet Volume 10.5 fL (9.4-12.3); Monocytes Absolute Auto 0.8 X10*3/uL (0.1-1.2); Monocytes Percent Auto 9.2 % (2-11); Neutrophils Absolute Auto 5.7 x10*3/uL (2.0-8.3); Neutrophils Percent Auto 63.6 % (45-73); Platelet Count 207 X10*3/uL (160-400); Red Blood Count 4.47 X10*6/uL (4.20-5.50); Red Cell Distribution Width 13.1 % (11.0-16.0)
[2023-06-29 16:23] LABS: Alanine Aminotransferase 20 U/L (0-31); Alkaline Phosphatase 83 U/L (39-117); Anion Gap 10 (12-20); Aspartate Amino Transferase 17 U/L (5-31); Bilirubin Total 0.3 mg/dL (0.0-1.0); Blood Urea Nitrogen 10 mg/dL (9-16); Calcium 9.3 mg/dL (8.4-10.2); Carbon Dioxide 20 mmol/L (22-29); Chloride 112 mmol/L (96-108); Creatinine Clr Calc Pharmacy 105.7; Estimated Glomerular Filt Rate > 60; Glucose Random 99 mg/dL (60-115); Lipase 12 U/L (8-78); Magnesium 2.1 mg/dL (1.6-2.6); Potassium 3.9 mmol/L (3.3-5.1); Sodium 138 mmol/L (135-145)
[2023-06-29 16:55] LABS: Influenza A PCR NEGATIVE (Negative); Influenza B PCR NEGATIVE (Negative); Resp Syncy Virus RNA Qual PCR NEGATIVE (Negative); SARS COV2 PCR INHOUSE NEGATIVE (Negative)
== END 2023-06-29 20:00 | disposition left against medical advice (07) ==
LOC: HO.ED 22:33
PROVIDERS: Physician Assistant; Emergency Provider Emergency Medicine
DX: G43.909 Migraine, unspecified, not intractable, without status migrainosus (principal); R19.7 Diarrhea, unspecified; Z20.822 Contact with and (suspected) exposure to COVID-19; Z20.828 Contact with and (suspected) exposure to other viral communicable diseases; Z79.899 Other long term (current) drug therapy
CPT/HCPCS: 0241U; 36415; 80053; 83690; 83735; 85025; 99282; 99283

== ENCOUNTER 2023-10-06 15:39 | Outpatient (REF) | payer MEDICAID, SELFPAY ==
[2023-10-06 17:20] LABS: Lithium 0.32 mmol/L (0.60-1.20)
== END 2023-10-06 15:40 | disposition home or self-care (01) ==
LOC: HO.HHCL 15:39
PROVIDERS: Visit Provider Nurse Practitioner Primary Care
DX: Z51.81 Encounter for therapeutic drug level monitoring (principal); Z79.899 Other long term (current) drug therapy
CPT/HCPCS: 36415; 80178

== ENCOUNTER 2024-02-14 | Outpatient (REF) | payer MEDICAID, SELFPAY | END 2024-02-14 00:01 | disposition home or self-care (01) | LOC: HO.HHCLNP | PROVIDERS: Visit Provider Family Medicine | DX: Z13.89 Encounter for screening for other disorder (principal) ==

== ENCOUNTER 2024-02-15 | Outpatient (REF) | payer MEDICAID, SELFPAY ==
[2024-02-17 18:28] LABS: C. trachomatis RNA TMA NOT DETECTED (NOT DETECTED); Candida glabrata RNA DETECTED (NOT DETECTED); Candida species RNA DETECTED (NOT DETECTED); N. gonorrhoeae RNA TMA NOT DETECTED (NOT DETECTED); Trichomonas vaginalis RNA NOT DETECTED (NOT DETECTED)
== END 2024-02-15 00:01 | disposition home or self-care (01) ==
LOC: HO.HHCLNP
PROVIDERS: Visit Provider Family Medicine
DX: N89.8 Other specified noninflammatory disorders of vagina (principal)
CPT/HCPCS: 36415; 81513; 87481; 87491; 87591; 87661

== ENCOUNTER 2024-03-01 12:45 | Outpatient (REF) | payer MEDICAID, SELFPAY ==
[2024-03-01 19:43] LABS: Lithium 0.24 mmol/L (0.60-1.20)
== END 2024-03-01 12:46 | disposition home or self-care (01) ==
LOC: HO.HHCL 12:45
PROVIDERS: Visit Provider Nurse Practitioner Primary Care
DX: F31.81 Bipolar II disorder (principal); Z79.899 Other long term (current) drug therapy
CPT/HCPCS: 36415; 80178

== ENCOUNTER 2024-05-05 13:19 | Emergency (ER) | payer MEDICAID, SELFPAY ==
[2024-05-05 13:40] VITALS: BP 134/83; PULSE 84; RESP 16; TEMP 36.4; O2SAT 96; BMI 39.0
--- NOTE | 2024-05-05 13:41 | ED.GENADULT ---
HPI - General Adult General Chief complaint: Headache Stated complaint: dizzy, headache, nausea Time Seen by Provider: 05/05/24 16:28 History of Present Illness HPI narrative: See additional note from Dr. johnson 05/05/24 Related Data Home Medications ?Medication ?Instructions ?Recorded ?Confirmed clonidine HCl 0.1 mg tablet 0.1 mg PO TID 09/25/20 11/20/20 fluticasone furoate 200 1 inh inhalation DAILY 09/25/20 11/20/20 mcg-vilanterol 25 mcg/dose inhalation powder (Breo Ellipta) hydroxyzine HCl 25 mg tablet 25 mg PO BEDTIME 09/25/20 11/20/20 lurasidone 60 mg tablet (Latuda) 60 mg PO DAILY 09/25/20 11/20/20 methylphenidate HCl 27 mg 27 mg PO DAILY 09/25/20 11/20/20 tablet,extended release 24 hr (Concerta) Previous Rx's ?Medication ?Instructions ?Recorded albuterol sulfate 90 mcg/actuation 2 puff inhalation Q4-6H PRN 11/20/20 aerosol inhaler (ProAir HFA) shortness of breath or wheezing #8.5 grams azithromycin 250 mg tablet 250 mg PO DAILY 5 days #6 tabs 11/20/20 (Zithromax Z-Yogesh) doxycycline monohydrate 100 mg 100 mg PO BID 10 days #20 caps 11/20/20 capsule prednisone 20 mg tablet 60 mg (3 x 20 mg) PO DAILY 5 days 11/20/20 #15 tabs tolterodine 4 mg capsule,extended 4 mg PO DAILY 90 days #90 caps 01/15/21 release 24 hr cyclobenzaprine 5 mg tablet 5 mg PO TID PRN muscle spasm #14 02/25/21 tabs ibuprofen 800 mg tablet 800 mg PO Q8H PRN pain #30 tabs 02/25/21 lidocaine 4 % topical patch 1 patch topical Q24H PRN pain #15 02/25/21 ea azithromycin 250 mg tablet See Rx Instructions PO .COMPLEX #6 07/18/21 (Zithromax Z-Yogesh) tabs omeprazole magnesium 20 mg 20 mg PO BID #30 tabs 07/18/21 tablet,delayed release (Prilosec OTC) omeprazole 20 mg tablet,delayed 20 mg PO DAILY #30 tabs 09/26/21 release albuterol sulfate 90 mcg/actuation 2 puff inhalation Q4-6H PRN 10/23/21 aerosol inhaler shortness of breath or wheezing #8.5 grams ondansetron 4 mg disintegrating 4 mg PO Q8H #6 tabs 10/23/21 tablet doxycycline hyclate 100 mg capsule 100 mg PO DAILY #13 caps 01/09/22 nitrofurantoin 100 mg PO BID #13 caps 01/09/22 monohydrate/macrocrystals 100 mg capsule (Macrobid) ondansetron HCl 4 mg tablet 4 mg PO Q6H PRN nausea and 01/09/22 vomiting #7 tabs cefuroxime axetil 500 mg tablet 500 mg PO BID #20 tabs 04/12/22 ibuprofen 600 mg tablet 600 mg PO Q6H PRN pain #20 tabs 04/12/22 ondansetron 4 mg disintegrating 4 mg PO Q6-8H PRN nausea and 04/12/22 tablet vomiting #7 tabs lorazepam 1 mg tablet (Ativan) 1 mg PO BID PRN anxiety #20 tabs 06/13/22 ondansetron 4 mg disintegrating 4 mg PO Q6-8H PRN nausea and 06/13/22 tablet vomiting #20 tabs ondansetron 4 mg disintegrating 4 mg PO TID PRN nausea and 05/05/24 tablet vomiting 5 days #10 tabs Allergies Allergy/AdvReac Type Severity Reaction Status Date / Time amoxicillin [AMOXICILLIN] Allergy Unknown VOMITING Verified 05/05/24 13:40 pollen extracts [POLLEN] Allergy Unknown ITCHY EYES Verified 05/05/24 13:40 PMFSH Past Medical History Medical History Insomnia ADHD Borderline personality disorder Depression PTSD (post-traumatic stress disorder) Bipolar 1 disorder DAX (obstructive sleep apnea) Asthma Allergic rhinosinusitis Surgical History History of oral surgery Hx of adenoidectomy Hx of tonsillectomy Social History Social History Alcohol intake: never Substance Use Type: Marijuana Advance Directives: No Advance Directives Information Provided: No Physical Exam ED Vital Signs: Vital Signs - 24 hr 05/05/24 13:40 05/05/24 18:13 05/05/24 19:22 Temperature 97.6 F 98.4 F 99.1 F Pulse Rate 84 63 66 Respiratory Rate 16 17 14 Blood Pressure 134/83 115/70 112/58 L Pulse Oximetry 96 98 98 Oxygen Delivery Method Room Air Room Air Room Air 05/05/24 20:06 Temperature 99.0 F Pulse Rate 80 Respiratory Rate 18 Blood Pressure 117/66 Pulse Oximetry 99 Oxygen Delivery Method Room Air BMI result Body Mass Index 39.0 Course Course Course Narrative: This is an RME performed by Clinton Cortez CNP: Additional HPI, ROS, PE not included below will be deferred to primary provider. Patient is a 33-year-old female who presents to the emergency department for evaluation of migraine headache with photophobia, feeling tired, nausea, intermittent diarrhea, 2 episodes of vomiting this morning after attempting to eat a sandwich and drink coffee. Symptom onset was over the past week after returning home from vacation. Plan: labs, U/A, hcg, viral panel Medications Administered Discontinued Medications Generic Name Dose Route Start Last Admin Trade Name Freq PRN Reason Stop Dose Admin Diphenhydramine HCl 50 mg 05/05/24 17:15 05/05/24 17:50 Diphenhydramine Hcl 50 Mg/Ml Vial IVPUSH 05/05/24 17:16 50 mg ONCE ONE Administration Sodium Chloride 1,000 mls @ 999 mls/hr 05/05/24 17:15 05/05/24 17:50 Ns IV 05/05/24 18:15 999 mls/hr .Q1H1M LUPE Administration Ketorolac Tromethamine 15 mg 05/05/24 17:15 05/05/24 17:50 Ketorolac Tromethamine 15 Mg/Ml Vial IVPUSH 05/05/24 17:16 15 mg ONCE ONE Administration Metoclopramide HCl 10 mg 05/05/24 17:15 05/05/24 17:50 Metoclopramide Hcl 10 Mg/2 Ml Vial IVPUSH 05/05/24 17:16 10 mg ONCE ONE Administration Medical Decision Making Lab Data 05/05/24 14:07 05/05/24 14:07 Labs: Lab Results 05/05/24 05/05/24 Range/Units 14:06 14:07 WBC 7.5 (4.8-10.8) X10*3/uL RBC 4.70 (4.20-5.50) X10*6/uL Hgb 14.9 (12.0-16.0) g/dl Hct 43.7 (37.0-47.0) % MCV 93.0 (80.0-98.0) fL MCH 31.7 (27.0-33.0) pg MCHC 34.1 (31.0-35.0) g/dl RDW 13.1 (11.0-16.0) % Plt Count 236 (160-400) X10*3/uL MPV 10.4 (9.4-12.3) fL Immature Gran % (Auto) 0.3 (0.0-0.4) % Neut % (Auto) 68.6 (45-73) % Lymph % (Auto) 21.7 (20-40) % [place] % (Auto) 7.6 (2-11) % Eos % (Auto) 1.3 (0-4) % Baso % (Auto) 0.5 (0-2) % Lymph # (Auto) 1.6 (1.2-4.9) X10*3/uL [place] # (Auto) 0.6 (0.1-1.2) X10*3/uL Eos # (Auto) 0.1 (0.0-0.4) X10*3/uL Baso # (Auto) 0.0 (0.0-0.2) X10*3/uL Abs Immat Gran (auto) 0.02 (0.00-0.03) X10*3/uL Absolute Neuts (auto) 5.2 (2.0-8.3) x10*3/uL Absolute Nucleated RBC 0.000 (0.0-0.012) X10*3/uL Nucleated RBC % (auto) 0.0 (0.0-0.2) /100WBC Sodium 139 (135-145) mmol/L Potassium 4.0 (3.3-5.1) mmol/L Chloride 109 H (96-108) mmol/L Carbon Dioxide 23 (22-29) mmol/L Anion Gap 11 L (12-20) BUN 10 (9-16) mg/dL Creatinine 0.76 (0.5-1.4) mg/dL Estim Creat Clear Calc 112.1 Estimated GFR > 60 Random Glucose 107 (60-115) mg/dL Calcium 10.0 D (8.4-10.2) mg/dL Magnesium 2.2 (1.6-2.6) mg/dL Total Bilirubin 0.6 (0.0-1.0) mg/dL AST 13 (5-31) U/L ALT 22 (0-31) U/L Alkaline Phosphatase 91 (39-117) U/L Total Protein 7.7 (6.5-8.0) g/dL Albumin 4.5 (3.5-5.0) g/dL Lipase 13 (8-78) U/L Urine Color Yellow Urine Appearance Clear Urine pH >= 9.0 (5.0-9.0) Ur Specific [place] 1.015 (1.005-1.025) Urine Protein Negative (Neg-Trace) mg/dL Urine Glucose (UA) Negative (Negative) mg/dL Urine Ketones Negative (Negative) mg/dL Urine Blood Negative (Negative) Urine Nitrite Negative (Negative) Ur Leukocyte Esterase Trace H (Negative) Urine RBC 0-2 (0-2) /HPF Urine WBC 0-5 (0-5) /HPF Ur Squamous Epith Cells 3-5 (0-2) /HPF Urine Bacteria None Seen (None Seen) Hyaline Casts 0-2 (0-2) /LPF Urine Test NEGATIVE (NEGATIVE) Influenza Type A (PCR) NEGATIVE (Negative) Influenza Type B (PCR) NEGATIVE (Negative) RSV RNA Qual (PCR) NEGATIVE (Negative) SARS-CoV-2 RNA (RT-PCR) NEGATIVE (Negative) Discharge Plan Discharge Clinical Impression: Migraine Patient Disposition: Home, Self-Care Instructions: Migraine Headache (ED) Prescriptions: New ondansetron 4 mg tablet,disintegrating 4 mg PO TID PRN (Reason: nausea and vomiting) 5 Days Qty: 10 0RF No Action lidocaine 4 % adhesive patch,medicated 1 patch topical Q24H PRN (Reason: pain) Qty: 15 0RF Rx Instructions: may leave on for up to 12 hrs ibuprofen 800 mg tablet 800 mg PO Q8H PRN (Reason: pain) Qty: 30 0RF cyclobenzaprine 5 mg tablet 5 mg PO TID PRN (Reason: muscle spasm) Qty: 14 0RF azithromycin [Zithromax Z-Yogesh] 250 mg tablet 250 mg PO DAILY 5 Days Qty: 6 0RF doxycycline monohydrate 100 mg capsule 100 mg PO BID 10 Days Qty: 20 0RF prednisone 20 mg tablet 60 mg PO DAILY 5 Days Qty: 15 0RF albuterol sulfate [ProAir HFA] 90 mcg/actuation HFA aerosol inhaler 2 puff inhalation Q4-6H PRN (Reason: shortness of breath or wheezing) Qty: 8.5 0RF azithromycin [Zithromax Z-Yogesh] 250 mg tablet See Rx Instructions .ROUTE .COMPLEX Qty: 6 0RF Rx Instructions: take 500 mg today (day 1), then 250 mg for 4 days (days 2-5) omeprazole magnesium [Prilosec OTC] 20 mg tablet,delayed release (DR/EC) 20 mg PO BID Qty: 30 0RF ondansetron 4 mg tablet,disintegrating 4 mg PO Q8H Qty: 6 0RF albuterol sulfate 90 mcg/actuation HFA aerosol inhaler 2 puff inhalation Q4-6H PRN (Reason: shortness of breath or wheezing) Qty: 8.5 0RF omeprazole 20 mg tablet,delayed release (DR/EC) 20 mg PO DAILY Qty: 30 0RF doxycycline hyclate 100 mg capsule 100 mg PO DAILY Qty: 13 0RF nitrofurantoin monohyd/m-cryst [Macrobid] 100 mg capsule 100 mg PO BID Qty: 13 0RF Rx Instructions: must administer with a meal/food ondansetron HCl 4 mg tablet 4 mg PO Q6H PRN (Reason: nausea and vomiting) Qty: 7 0RF ibuprofen 600 mg tablet 600 mg PO Q6H PRN (Reason: pain) Qty: 20 0RF cefuroxime axetil 500 mg tablet 500 mg PO BID Qty: 20 0RF ondansetron 4 mg tablet,disintegrating 4 mg PO Q6-8H PRN (Reason: nausea and vomiting) Qty: 7 0RF lorazepam [Ativan] 1 mg tablet 1 mg PO BID PRN (Reason: anxiety) Qty: 20 0RF ondansetron 4 mg tablet,disintegrating 4 mg PO Q6-8H PRN (Reason: nausea and vomiting) Qty: 20 0RF Breo Ellipta 200-25 mcg/dose blister with device 1 inh inhalation DAILY clonidine HCl 0.1 mg tablet 0.1 mg PO TID hydroxyzine HCl 25 mg tablet 25 mg PO BEDTIME methylphenidate HCl [Concerta] 27 mg tablet extended release 24hr 27 mg PO DAILY Latuda 60 mg tablet 60 mg PO DAILY Rx Instructions: must administer with food (at least 350 calories) tolterodine 4 mg capsule,extended release 24hr 4 mg PO DAILY 90 Days Qty: 90 1RF Referrals: Lavonne Sheppard AIR CONDITIONING SPECIALIST [Primary Care Provider] - Interventions: ED Discharge Assessment Last Done: 05/05/24 20:06 Discharge Date/Time: 05/05/24 20:08 Print Language: Turkish
[2024-05-05 14:15] LABS: MANUAL DIFF FLAG NO
[2024-05-05 14:16] LABS: Basophils Percent Auto 0.5 % (0-2); Eosinophils Absolute Auto 0.1 X10*3/uL (0.0-0.4); Eosinophils Percent Auto 1.3 % (0-4); Hematocrit 43.7 % (37.0-47.0); Hemoglobin 14.9 g/dl (12.0-16.0); Imm Gran Abs Auto 0.02 X10*3/uL (0.00-0.03); Imm Gran Pct Auto 0.3 % (0.0-0.4); Lymphocytes Absolute Auto 1.6 X10*3/uL (1.2-4.9); Lymphocytes Percent Auto 21.7 % (20-40); Mean Corpuscular HGB Conc 34.1 g/dl (31.0-35.0); Mean Corpuscular Hemoglobin 31.7 pg (27.0-33.0); Mean Platelet Volume 10.4 fL (9.4-12.3); Monocytes Absolute Auto 0.6 X10*3/uL (0.1-1.2); Monocytes Percent Auto 7.6 % (2-11); Neutrophils Absolute Auto 5.2 x10*3/uL (2.0-8.3); Neutrophils Percent Auto 68.6 % (45-73); Platelet Count 236 X10*3/uL (160-400); Red Cell Distribution Width 13.1 % (11.0-16.0); White Blood Count 7.5 X10*3/uL (4.8-10.8)
[2024-05-05 14:20] LABS: Appearance Urine Clear; Color Urine Yellow; Glucose Urine UA Negative (Negative); Leukocyte Esterase Urine Trace (Negative); Nitrite Urine Negative (Negative); PH >= 9.0 (5.0-9.0); Specific Gravity - Urine 1.015 (1.005-1.025); UMIC TRIGGER UACC YES; Urine Blood Negative (Negative); Urine Ketones Negative (Negative); Urine Protein Negative (Neg-Trace)
[2024-05-05 14:23] LABS: UPreg QC Valid YES; Urine Pregnancy NEGATIVE (NEGATIVE)
[2024-05-05 14:35] LABS: Alanine Aminotransferase 22 U/L (0-31); Albumin Level 4.5 g/dL (3.5-5.0); Alkaline Phosphatase 91 U/L (39-117); Anion Gap 11 (12-20); Aspartate Amino Transferase 13 U/L (5-31); Bilirubin Total 0.6 mg/dL (0.0-1.0); Blood Urea Nitrogen 10 mg/dL (9-16); Carbon Dioxide 23 mmol/L (22-29); Chloride 109 mmol/L (96-108); Creatinine Clr Calc Pharmacy 112.1; Estimated Glomerular Filt Rate > 60; Glucose Random 107 mg/dL (60-115); Lipase 13 U/L (8-78); Magnesium 2.2 mg/dL (1.6-2.6); Sodium 139 mmol/L (135-145); Total Protein 7.7 g/dL (6.5-8.0)
[2024-05-05 15:06] LABS: Bacteria Urine None Seen (None Seen); Hyaline Casts Urine 0-2 /LPF (0-2); RBC Urine 0-2 /HPF (0-2); WBC Urine 0-5 /HPF (0-5)
[2024-05-05 15:10] LABS: Influenza A PCR NEGATIVE (Negative); Influenza B PCR NEGATIVE (Negative); Resp Syncy Virus RNA Qual PCR NEGATIVE (Negative); SARS COV2 PCR INHOUSE NEGATIVE (Negative)
--- NOTE | 2024-05-05 17:16 | ED_ITS ---
HPI - Headache General Chief Complaint: Headache Stated Complaint: dizzy, headache, nausea Time Seen by Provider: 05/05/24 16:28 History of Present Illness HPI Narrative: Patient is a 33-year-old female presents today with having headache fatigue generalized malaise it has been going on for about a week. Had some photosensitivity has a history of migraine headaches in the past. No focal weakness. Positive nausea. Worsened with light. Worsened with noise. Patient is from home. Attempted to take some Motrin to no relief of symptoms. Came to the ED for further evaluation. Related Data Home Medications ?Medication ?Instructions ?Recorded ?Confirmed clonidine HCl 0.1 mg tablet 0.1 mg PO TID 09/25/20 11/20/20 fluticasone furoate 200 1 inh inhalation DAILY 09/25/20 11/20/20 mcg-vilanterol 25 mcg/dose inhalation powder (Breo Ellipta) hydroxyzine HCl 25 mg tablet 25 mg PO BEDTIME 09/25/20 11/20/20 lurasidone 60 mg tablet (Latuda) 60 mg PO DAILY 09/25/20 11/20/20 methylphenidate HCl 27 mg 27 mg PO DAILY 09/25/20 11/20/20 tablet,extended release 24 hr (Concerta) Previous Rx's ?Medication ?Instructions ?Recorded albuterol sulfate 90 mcg/actuation 2 puff inhalation Q4-6H PRN 11/20/20 aerosol inhaler (ProAir HFA) shortness of breath or wheezing #8.5 grams azithromycin 250 mg tablet 250 mg PO DAILY 5 days #6 tabs 11/20/20 (Zithromax Z-Yogesh) doxycycline monohydrate 100 mg 100 mg PO BID 10 days #20 caps 11/20/20 capsule prednisone 20 mg tablet 60 mg (3 x 20 mg) PO DAILY 5 days 11/20/20 #15 tabs tolterodine 4 mg capsule,extended 4 mg PO DAILY 90 days #90 caps 01/15/21 release 24 hr cyclobenzaprine 5 mg tablet 5 mg PO TID PRN muscle spasm #14 02/25/21 tabs ibuprofen 800 mg tablet 800 mg PO Q8H PRN pain #30 tabs 02/25/21 lidocaine 4 % topical patch 1 patch topical Q24H PRN pain #15 02/25/21 ea azithromycin 250 mg tablet See Rx Instructions PO .COMPLEX #6 07/18/21 (Zithromax Z-Yogesh) tabs omeprazole magnesium 20 mg 20 mg PO BID #30 tabs 07/18/21 tablet,delayed release (Prilosec OTC) omeprazole 20 mg tablet,delayed 20 mg PO DAILY #30 tabs 07/20/21 release albuterol sulfate 90 mcg/actuation 2 puff inhalation Q4-6H PRN 10/23/21 aerosol inhaler shortness of breath or wheezing #8.5 grams ondansetron 4 mg disintegrating 4 mg PO Q8H #6 tabs 10/23/21 tablet doxycycline hyclate 100 mg capsule 100 mg PO DAILY #13 caps 01/09/22 nitrofurantoin 100 mg PO BID #13 caps 01/09/22 monohydrate/macrocrystals 100 mg capsule (Macrobid) ondansetron HCl 4 mg tablet 4 mg PO Q6H PRN nausea and 01/09/22 vomiting #7 tabs cefuroxime axetil 500 mg tablet 500 mg PO BID #20 tabs 04/12/22 ibuprofen 600 mg tablet 600 mg PO Q6H PRN pain #20 tabs 04/12/22 ondansetron 4 mg disintegrating 4 mg PO Q6-8H PRN nausea and 04/12/22 tablet vomiting #7 tabs lorazepam 1 mg tablet (Ativan) 1 mg PO BID PRN anxiety #20 tabs 06/13/22 ondansetron 4 mg disintegrating 4 mg PO Q6-8H PRN nausea and 06/13/22 tablet vomiting #20 tabs ondansetron 4 mg disintegrating 4 mg PO TID PRN nausea and 05/05/24 tablet vomiting 5 days #10 tabs Allergies Allergy/AdvReac Type Severity Reaction Status Date / Time amoxicillin [AMOXICILLIN] Allergy Unknown VOMITING Verified 05/05/24 13:40 pollen extracts [POLLEN] Allergy Unknown ITCHY EYES Verified 05/05/24 13:40 Review of Systems 2 Review of Systems: Positive headache PMFSH Past Medical History Attestation statement: The following information was validated with the patient. Medical History Insomnia ADHD Borderline personality disorder Depression PTSD (post-traumatic stress disorder) Bipolar 1 disorder DAX (obstructive sleep apnea) Asthma Allergic rhinosinusitis Surgical History History of oral surgery Hx of adenoidectomy Hx of tonsillectomy Social History Social History Alcohol intake: never Substance Use Type: Marijuana Advance Directives: No Advance Directives Information Provided: No Physical Exam 2 Vital Signs: Vital Signs: Last Vital Signs Temp 99.1 F 05/05/24 19:22 Pulse 66 05/05/24 19:22 Resp 14 05/05/24 19:22 BP 112/58 L 05/05/24 19:22 Pulse Ox 98 05/05/24 19:22 O2 Del Method Room Air 05/05/24 19:22 BMI result Body Mass Index 39.0 Appearance: Alert. Oriented X3. No acute distress. Eyes: Pupils equal, round and reactive to light. ENT: Pharynx normal. Neck: Normal inspection. Neck supple. No lymph nodes noted. No crepitus CVS: Normal heart rate and rhythm. Pulses normal. Normal S1 and S2 Respiratory: No respiratory distress. Breath sounds normal. No Wheezing. No rales Abdomen: Soft and nontender. No rigidity. No distention. good BS x4 Skin: Skin warm and dry. Normal skin color. Normal skin turgor. Extremities: No lower extremity edema. Neurovascular intact to all extremities. No Lacerations. No Rash Neuro: Oriented X 3. No motor deficit. No sensory deficit. Moving all extermities. No slurred speech Medications Administered Discontinued Medications Generic Name Dose Route Start Last Admin Trade Name Martinq PRN Reason Stop Dose Admin Diphenhydramine HCl 50 mg 05/05/24 17:15 05/05/24 17:50 Diphenhydramine Hcl 50 Mg/Ml Vial IVPUSH 05/05/24 17:16 50 mg ONCE ONE Administration Sodium Chloride 1,000 mls @ 999 mls/hr 05/05/24 17:15 05/05/24 17:50 Ns IV 05/05/24 18:15 999 mls/hr .Q1H1M LUPE Administration Ketorolac Tromethamine 15 mg 05/05/24 17:15 05/05/24 17:50 Ketorolac Tromethamine 15 Mg/Ml Vial IVPUSH 05/05/24 17:16 15 mg ONCE ONE Administration Metoclopramide HCl 10 mg 05/05/24 17:15 05/05/24 17:50 Metoclopramide Hcl 10 Mg/2 Ml Vial IVPUSH 05/05/24 17:16 10 mg ONCE ONE Administration Medical Decision Making Medical Decision Making [facility] Narrative: Patient's electrolytes unremarkable. White count is normal. UA is negative for infection. test is negative. COVID flu RSV these were all negative. No fever here in the emergency department. Given a migraine cocktail with patient has a previous history of migraine. Symptoms seems to have been relieved. Currently in no pain. Feels very comfortable. Will discharge patient home neurologically intact. No evidence for bleed. No evidence for meningitis. Will discharge home Differential Diagnosis Differential Diagnoses: The differential diagnosis associated with the presentation includes Migraine, intracranial mass, bleed, infection Admission/Observation Consideration of admission/observation: Escalation of care including admission/observation considered Lab Data [facility] Lab Attestation statement: I reviewed the patient's lab results. 05/05/24 14:07 05/05/24 14:07 Labs: Lab Results 05/05/24 05/05/24 Range/Units 14:06 14:07 WBC 7.5 (4.8-10.8) X10*3/uL RBC 4.70 (4.20-5.50) X10*6/uL Hgb 14.9 (12.0-16.0) g/dl Hct 43.7 (37.0-47.0) % MCV 93.0 (80.0-98.0) fL MCH 31.7 (27.0-33.0) pg MCHC 34.1 (31.0-35.0) g/dl RDW 13.1 (11.0-16.0) % Plt Count 236 (160-400) X10*3/uL MPV 10.4 (9.4-12.3) fL Immature Gran % (Auto) 0.3 (0.0-0.4) % Neut % (Auto) 68.6 (45-73) % Lymph % (Auto) 21.7 (20-40) % [place] % (Auto) 7.6 (2-11) % Eos % (Auto) 1.3 (0-4) % Baso % (Auto) 0.5 (0-2) % Lymph # (Auto) 1.6 (1.2-4.9) X10*3/uL [place] # (Auto) 0.6 (0.1-1.2) X10*3/uL Eos # (Auto) 0.1 (0.0-0.4) X10*3/uL Baso # (Auto) 0.0 (0.0-0.2) X10*3/uL Abs Immat Gran (auto) 0.02 (0.00-0.03) X10*3/uL Absolute Neuts (auto) 5.2 (2.0-8.3) x10*3/uL Absolute Nucleated RBC 0.000 (0.0-0.012) X10*3/uL Nucleated RBC % (auto) 0.0 (0.0-0.2) /100WBC Sodium 139 (135-145) mmol/L Potassium 4.0 (3.3-5.1) mmol/L Chloride 109 H (96-108) mmol/L Carbon Dioxide 23 (22-29) mmol/L Anion Gap 11 L (12-20) BUN 10 (9-16) mg/dL Creatinine 0.76 (0.5-1.4) mg/dL Estim Creat Clear Calc 112.1 Estimated GFR > 60 Random Glucose 107 (60-115) mg/dL Calcium 10.0 D (8.4-10.2) mg/dL Magnesium 2.2 (1.6-2.6) mg/dL Total Bilirubin 0.6 (0.0-1.0) mg/dL AST 13 (5-31) U/L ALT 22 (0-31) U/L Alkaline Phosphatase 91 (39-117) U/L Total Protein 7.7 (6.5-8.0) g/dL Albumin 4.5 (3.5-5.0) g/dL Lipase 13 (8-78) U/L Urine Color Yellow Urine Appearance Clear Urine pH >= 9.0 (5.0-9.0) Ur Specific [place] 1.015 (1.005-1.025) Urine Protein Negative (Neg-Trace) mg/dL Urine Glucose (UA) Negative (Negative) mg/dL Urine Ketones Negative (Negative) mg/dL Urine Blood Negative (Negative) Urine Nitrite Negative (Negative) Ur Leukocyte Esterase Trace H (Negative) Urine RBC 0-2 (0-2) /HPF Urine WBC 0-5 (0-5) /HPF Ur Squamous Epith Cells 3-5 (0-2) /HPF Urine Bacteria None Seen (None Seen) Hyaline Casts 0-2 (0-2) /LPF Urine Test NEGATIVE (NEGATIVE) Influenza Type A (PCR) NEGATIVE (Negative) Influenza Type B (PCR) NEGATIVE (Negative) RSV RNA Qual (PCR) NEGATIVE (Negative) SARS-CoV-2 RNA (RT-PCR) NEGATIVE (Negative) Chronic Conditions Migraine headache Discharge Plan Discharge Clinical Impression: Migraine Patient Disposition: Home, Self-Care Instructions: Migraine Headache (ED) Prescriptions: New ondansetron 4 mg tablet,disintegrating 4 mg PO TID PRN (Reason: nausea and vomiting) 5 Days Qty: 10 0RF No Action lidocaine 4 % adhesive patch,medicated 1 patch topical Q24H PRN (Reason: pain) Qty: 15 0RF Rx Instructions: may leave on for up to 12 hrs ibuprofen 800 mg tablet 800 mg PO Q8H PRN (Reason: pain) Qty: 30 0RF cyclobenzaprine 5 mg tablet 5 mg PO TID PRN (Reason: muscle spasm) Qty: 14 0RF azithromycin [Zithromax Z-Yogesh] 250 mg tablet 250 mg PO DAILY 5 Days Qty: 6 0RF doxycycline monohydrate 100 mg capsule 100 mg PO BID 10 Days Qty: 20 0RF prednisone 20 mg tablet 60 mg PO DAILY 5 Days Qty: 15 0RF albuterol sulfate [ProAir HFA] 90 mcg/actuation HFA aerosol inhaler 2 puff inhalation Q4-6H PRN (Reason: shortness of breath or wheezing) Qty: 8.5 0RF azithromycin [Zithromax Z-Yogesh] 250 mg tablet See Rx Instructions .ROUTE .COMPLEX Qty: 6 0RF Rx Instructions: take 500 mg today (day 1), then 250 mg for 4 days (days 2-5) omeprazole magnesium [Prilosec OTC] 20 mg tablet,delayed release (DR/EC) 20 mg PO BID Qty: 30 0RF ondansetron 4 mg tablet,disintegrating 4 mg PO Q8H Qty: 6 0RF albuterol sulfate 90 mcg/actuation HFA aerosol inhaler 2 puff inhalation Q4-6H PRN (Reason: shortness of breath or wheezing) Qty: 8.5 0RF omeprazole 20 mg tablet,delayed release (DR/EC) 20 mg PO DAILY Qty: 30 0RF doxycycline hyclate 100 mg capsule 100 mg PO DAILY Qty: 13 0RF nitrofurantoin monohyd/m-cryst [Macrobid] 100 mg capsule 100 mg PO BID Qty: 13 0RF Rx Instructions: must administer with a meal/food ondansetron HCl 4 mg tablet 4 mg PO Q6H PRN (Reason: nausea and vomiting) Qty: 7 0RF ibuprofen 600 mg tablet 600 mg PO Q6H PRN (Reason: pain) Qty: 20 0RF cefuroxime axetil 500 mg tablet 500 mg PO BID Qty: 20 0RF ondansetron 4 mg tablet,disintegrating 4 mg PO Q6-8H PRN (Reason: nausea and vomiting) Qty: 7 0RF lorazepam [Ativan] 1 mg tablet 1 mg PO BID PRN (Reason: anxiety) Qty: 20 0RF ondansetron 4 mg tablet,disintegrating 4 mg PO Q6-8H PRN (Reason: nausea and vomiting) Qty: 20 0RF Breo Ellipta 200-25 mcg/dose blister with device 1 inh inhalation DAILY clonidine HCl 0.1 mg tablet 0.1 mg PO TID hydroxyzine HCl 25 mg tablet 25 mg PO BEDTIME methylphenidate HCl [Concerta] 27 mg tablet extended release 24hr 27 mg PO DAILY Latuda 60 mg tablet 60 mg PO DAILY Rx Instructions: must administer with food (at least 350 calories) tolterodine 4 mg capsule,extended release 24hr 4 mg PO DAILY 90 Days Qty: 90 1RF Referrals: Lavonne Sheppard, [employer] [Primary Care Provider] - Print Language: Austrian
[2024-05-05] MEDS: diphenhydrAMINE HCL 50 MG/ML VIAL IVPUSH (17:50)
[2024-05-05] MEDS: Ketorolac Tromethamine 15 MG/ML VIAL IVPUSH (17:50)
[2024-05-05] MEDS: Metoclopramide HCl 10 MG/2 ML VIAL IVPUSH (17:50)
[2024-05-05] MEDS: 0.9 % Sodium Chloride 1,000 ML 999 ML IV (17:50)
[2024-05-05 18:13] VITALS: BP 115/70; PULSE 63; RESP 17; TEMP 36.9; O2SAT 98
[2024-05-05 19:22] VITALS: BP 112/58; PULSE 66; RESP 14; TEMP 37.3; O2SAT 98
[2024-05-05 20:06] VITALS: BP 117/66; PULSE 80; RESP 18; TEMP 37.2; O2SAT 99
== END 2024-05-05 20:08 | disposition home or self-care (01) ==
PROVIDERS: Nurse Practitioner Family; Emergency Provider Emergency Medicine Emergency Medical Services; PCP Nurse Practitioner Primary Care
DX: G43.909 Migraine, unspecified, not intractable, without status migrainosus (principal); Z03.818 Encounter for observation for suspected exposure to other biological agents ruled out; J45.909 Unspecified asthma, uncomplicated; Z79.899 Other long term (current) drug therapy
CPT/HCPCS: 0241U; 80053; 81001; 81003; 81025; 83690; 83735; 85025; 96374; 96375; 99284; J1200; J1885; J2765

== ENCOUNTER 2024-09-01 15:27 | Emergency (ER) | payer MEDICAID, SELFPAY ==
--- NOTE | ~2024-09-01 | XR_ITS ---
EXAMINATION: CHEST AND LUMBAR SPINE CLINICAL INFORMATION: Nontraumatic low back pain and cough COMPARISON: CT abdomen pelvis 06/13/2022 chest radiograph 04/12/2022 TECHNIQUE: 2 views chest, 3 views lumbosacral spine FINDINGS: Chest: Mild biconvex thoracolumbar scoliosis. Heart and pulmonary vessels appear normal. No infiltrates, effusions or lung masses. Lumbar spine: Mild scoliosis. Some mild degenerative changes are present in the lower thoracic spine most prominent at T11-T12. Some equivocal spondylitic endplate changes are seen in the lumbar spine but disc spaces and vertebral body heights are well maintained. No acute fractures or bony destructive lesions XR/XR chest 2V IMPRESSION: 1. No acute intrathoracic disease. 2. No significant disease seen in the lumbar spine. Electronically signed by: Jay Cole MD 09/01/2024 08:39 PM [facility]
--- NOTE | ~2024-09-01 | XR_ITS ---
EXAMINATION: CHEST AND LUMBAR SPINE CLINICAL INFORMATION: Nontraumatic low back pain and cough COMPARISON: CT abdomen pelvis 06/13/2022 chest radiograph 04/12/2022 TECHNIQUE: 2 views chest, 3 views lumbosacral spine FINDINGS: Chest: Mild biconvex thoracolumbar scoliosis. Heart and pulmonary vessels appear normal. No infiltrates, effusions or lung masses. Lumbar spine: Mild scoliosis. Some mild degenerative changes are present in the lower thoracic spine most prominent at T11-T12. Some equivocal spondylitic endplate changes are seen in the lumbar spine but disc spaces and vertebral body heights are well maintained. No acute fractures or bony destructive lesions XR/XR lumbar spine 2-3V IMPRESSION: 1. No acute intrathoracic disease. 2. No significant disease seen in the lumbar spine. Electronically signed by: Jay Cole MD 09/01/2024 08:39 PM SHANE
[2024-09-01 16:02] VITALS: BP 118/61; PULSE 95; RESP 18; TEMP 36.8; O2SAT 97; BMI 38.8
[2024-09-01 18:02] VITALS: BP 139/74; PULSE 77; RESP 16; TEMP 37.2; O2SAT 98
--- NOTE | 2024-09-01 18:10 | ED.GENADULT ---
HPI - General Adult General Chief complaint: General Medical Stated complaint: Back pain, congestion Time Seen by Provider: 09/01/24 18:10 History of Present Illness ED Provider: Asher QUINTEROS narrative: The patient is a 34-year-old female who says that the morning after Hallow she woke up with low back pain. She says the pain did not really lateralize. Says the pain is worse with moving. She also says that over the last 4 days she has had respiratory symptoms including a runny nose and cough. She says that she is coughing up mucus and she has felt chilled. She says that she sometimes smokes marijuana but is not a regular cigarette smoker. She does not know if she might be . She says that she had intercourse a few weeks ago. She says that she has no numbness or tingling or weakness or loss of sensation in her legs. She has no urinary discomfort. She says that when she has a bowel movement her back pain is worse however. No sore throat. She denies doing anything that might have injured her back on the evening before symptoms began. No heavy lifting or other injuries. Related Data Home Medications ?Medication ?Instructions ?Recorded ?Confirmed clonidine HCl 0.1 mg tablet 0.1 mg PO TID 09/25/20 11/20/20 fluticasone furoate 200 1 inh inhalation DAILY 09/25/20 11/20/20 mcg-vilanterol 25 mcg/dose inhalation powder (Breo Ellipta) hydroxyzine HCl 25 mg tablet 25 mg PO BEDTIME 09/25/20 11/20/20 lurasidone 60 mg tablet (Latuda) 60 mg PO DAILY 09/25/20 11/20/20 methylphenidate HCl 27 mg 27 mg PO DAILY 09/25/20 11/20/20 tablet,extended release 24 hr (Concerta) Previous Rx's ?Medication ?Instructions ?Recorded albuterol sulfate 90 mcg/actuation 2 puff inhalation Q4-6H PRN 11/20/20 aerosol inhaler (ProAir HFA) shortness of breath or wheezing #8.5 grams azithromycin 250 mg tablet 250 mg PO DAILY 5 days #6 tabs 11/20/20 (Zithromax Z-Yogesh) doxycycline monohydrate 100 mg 100 mg PO BID 10 days #20 caps 11/20/20 capsule prednisone 20 mg tablet 60 mg (3 x 20 mg) PO DAILY 5 days 11/20/20 #15 tabs tolterodine 4 mg capsule,extended 4 mg PO DAILY 90 days #90 caps 01/15/21 release 24 hr cyclobenzaprine 5 mg tablet 5 mg PO TID PRN muscle spasm #14 02/25/21 tabs ibuprofen 800 mg tablet 800 mg PO Q8H PRN pain #30 tabs 02/25/21 lidocaine 4 % topical patch 1 patch topical Q24H PRN pain #15 02/25/21 ea azithromycin 250 mg tablet See Rx Instructions PO .COMPLEX #6 07/18/21 (Zithromax Z-Yogesh) tabs omeprazole magnesium 20 mg 20 mg PO BID #30 tabs 07/18/21 tablet,delayed release (Prilosec OTC) omeprazole 20 mg tablet,delayed 20 mg PO DAILY #30 tabs 07/20/21 release albuterol sulfate 90 mcg/actuation 2 puff inhalation Q4-6H PRN 10/23/21 aerosol inhaler shortness of breath or wheezing #8.5 grams ondansetron 4 mg disintegrating 4 mg PO Q8H #6 tabs 10/23/21 tablet doxycycline hyclate 100 mg capsule 100 mg PO DAILY #13 caps 01/09/22 nitrofurantoin 100 mg PO BID #13 caps 01/09/22 monohydrate/macrocrystals 100 mg capsule (Macrobid) ondansetron HCl 4 mg tablet 4 mg PO Q6H PRN nausea and 01/09/22 vomiting #7 tabs cefuroxime axetil 500 mg tablet 500 mg PO BID #20 tabs 04/12/22 ibuprofen 600 mg tablet 600 mg PO Q6H PRN pain #20 tabs 04/12/22 ondansetron 4 mg disintegrating 4 mg PO Q6-8H PRN nausea and 04/12/22 tablet vomiting #7 tabs lorazepam 1 mg tablet (Ativan) 1 mg PO BID PRN anxiety #20 tabs 06/13/22 ondansetron 4 mg disintegrating 4 mg PO Q6-8H PRN nausea and 06/13/22 tablet vomiting #20 tabs ondansetron 4 mg disintegrating 4 mg PO TID PRN nausea and 05/05/24 tablet vomiting 5 days #10 tabs azithromycin 250 mg tablet 250 mg PO DAILY 4 days #4 tabs 09/01/24 cyclobenzaprine 10 mg tablet 10 mg PO TID PRN muscle spasm #12 09/01/24 tabs ibuprofen 600 mg tablet 600 mg PO TID PRN pain #14 tabs 09/01/24 Allergies Allergy/AdvReac Type Severity Reaction Status Date / Time amoxicillin [AMOXICILLIN] Allergy Unknown VOMITING Verified 09/01/24 16:04 pollen extracts [POLLEN] Allergy Unknown ITCHY EYES Verified 09/01/24 16:04 Review of Systems Review of Systems: Yes all other systems are reviewed and are negative [facility] Past Medical History Medical History Insomnia ADHD Borderline personality disorder Depression PTSD (post-traumatic stress disorder) Bipolar 1 disorder DAX (obstructive sleep apnea) Asthma Allergic rhinosinusitis Surgical History History of oral surgery Hx of adenoidectomy Hx of tonsillectomy Social History Social History Alcohol intake: never Substance Use Type: Marijuana Advance Directives: No Advance Directives Information Provided: No Do you have a plan to hurt others: No Plan Physical Exam ED Vital Signs: Vital Signs - 24 hr 09/01/24 16:02 09/01/24 18:02 09/01/24 20:04 Temperature 98.2 F 98.9 F 98.4 F Pulse Rate 95 77 78 Respiratory Rate 18 16 16 Blood Pressure 118/61 139/74 102/71 Pulse Oximetry 97 98 99 Oxygen Delivery Method Room Air Room Air Room Air 09/01/24 20:13 Temperature 98.4 F Pulse Rate 78 Respiratory Rate 16 Blood Pressure 102/71 Pulse Oximetry 99 Oxygen Delivery Method Room Air BMI result Body Mass Index 38.8 Const Other: The patient is awake and alert. The patient was coughing frequently but did not seem in respiratory distress. She seemed to be walking easily. HENMT Other: Face is symmetrical. Mucous membranes moist. The posterior pharynx is unremarkable. Eyes Other: Pupils are round, equal, and reactive to light. Conjunctivae are clear. Extraocular movements are intact. Neck Other: No significant cervical adenopathy appreciated. Resp Effort & Inspection: normal respiratory effort Auscultation: clear to auscultation bilaterally Cardio Rate: regular rate Rhythm: regular rhythm Heart sounds: S1 normal heart sound present and S2 normal heart sound present GI Other: Abdomen is soft and nontender Back/Spine/Pelvis Other: There is some diffuse tenderness across the lower lumbar spine both in the midline and paraspinally. Skin Other: Skin is dry and unremarkable Neuro Other: The patient is awake and alert with a normal mental status. Cranial nerves are grossly intact. She moves her extremities with normal strength and coordination. Gait is steady. Reflexes intact. Sensation is intact in the feet. Extrem Other: No calf swelling or tenderness. No asymmetry. Medications Administered Discontinued Medications Generic Name Dose Route Start Last Admin Trade Name Martinq PRN Reason Stop Dose Admin Acetaminophen 975 mg 09/01/24 18:24 09/01/24 18:43 Acetaminophen 325 Mg Tablet PO 09/01/24 18:25 975 mg ONCE ONE Administration Azithromycin 500 mg 09/01/24 20:01 09/01/24 20:12 Azithromycin 500 Mg Tablet PO 09/01/24 20:02 500 mg ONCE ONE Administration Ketorolac Tromethamine 30 mg 09/01/24 19:05 09/01/24 19:54 Ketorolac Tromethamine 30 Mg/Ml Vial IM 09/01/24 19:06 30 mg ONCE ONE Administration Medical Decision Making Medical Decision Making [facility] Narrative: The patient is a 34-year-old female seems to have to complains which I do not think are related. She has low back pain that seems to be musculoskeletal low back pain without any associated red flags. She has an unremarkable lumbar spine x-ray. Her secondary complaint is her respiratory syndrome. She has chills, cough, and mucus production. On my review of her chest x-ray I thought there might be slight increased markings in the right lung field possibly indicative of an early pneumonia. She was therefore started on azithromycin. However her official radiology reading, which was available at only after she has been discharged, was read as negative. At the time of discharge the patient has been started on a course of azithromycin. I also sent a prescription for ibuprofen and cyclobenzaprine for her back pain. Her test was negative. Lab Data Labs: Lab Results 09/01/24 09/01/24 Range/Units 16:21 18:52 Urine Test NEGATIVE (NEGATIVE) Influenza Type A (PCR) NEGATIVE (Negative) Influenza Type B (PCR) NEGATIVE (Negative) RSV RNA Qual (PCR) NEGATIVE (Negative) SARS-CoV-2 RNA (RT-PCR) NEGATIVE (Negative) Discharge Plan Discharge Clinical Impression: Atypical pneumonia, Acute bilateral low back pain Patient Disposition: Home, Self-Care Instructions: Acute Low Back Pain (ED) Additional Instructions: Your chest x-ray may be showing a very subtle pneumonia. Please take the azithromycin antibiotic as prescribed, once a day. Next dose tomorrow. Your low back pain seems to be muscular. Your x-ray looks good. You may use acetaminophen (Tylenol) as needed for pain. In addition I have sent a prescription for ibuprofen that you may use as well. Finally if necessary you may use the cyclobenzaprine prescribed. This is a muscle relaxant that may help with your pain. Please follow up with your regular doctor in the next week or 2. Return to the emergency room if significantly worse. Prescriptions: New azithromycin 250 mg tablet 250 mg PO DAILY 4 Days Qty: 4 0RF Rx Instructions: start on day 2 of therapy ibuprofen 600 mg tablet 600 mg PO TID PRN (Reason: pain) Qty: 14 0RF cyclobenzaprine 10 mg tablet 10 mg PO TID PRN (Reason: muscle spasm) Qty: 12 0RF No Action lidocaine 4 % adhesive patch,medicated 1 patch topical Q24H PRN (Reason: pain) Qty: 15 0RF Rx Instructions: may leave on for up to 12 hrs ibuprofen 800 mg tablet 800 mg PO Q8H PRN (Reason: pain) Qty: 30 0RF cyclobenzaprine 5 mg tablet 5 mg PO TID PRN (Reason: muscle spasm) Qty: 14 0RF azithromycin [Zithromax Z-Yogesh] 250 mg tablet 250 mg PO DAILY 5 Days Qty: 6 0RF doxycycline monohydrate 100 mg capsule 100 mg PO BID 10 Days Qty: 20 0RF prednisone 20 mg tablet 60 mg PO DAILY 5 Days Qty: 15 0RF albuterol sulfate [ProAir HFA] 90 mcg/actuation HFA aerosol inhaler 2 puff inhalation Q4-6H PRN (Reason: shortness of breath or wheezing) Qty: 8.5 0RF azithromycin [Zithromax Z-Yogesh] 250 mg tablet See Rx Instructions .ROUTE .COMPLEX Qty: 6 0RF Rx Instructions: take 500 mg today (day 1), then 250 mg for 4 days (days 2-5) omeprazole magnesium [Prilosec OTC] 20 mg tablet,delayed release (DR/EC) 20 mg PO BID Qty: 30 0RF ondansetron 4 mg tablet,disintegrating 4 mg PO Q8H Qty: 6 0RF albuterol sulfate 90 mcg/actuation HFA aerosol inhaler 2 puff inhalation Q4-6H PRN (Reason: shortness of breath or wheezing) Qty: 8.5 0RF omeprazole 20 mg tablet,delayed release (DR/EC) 20 mg PO DAILY Qty: 30 0RF doxycycline hyclate 100 mg capsule 100 mg PO DAILY Qty: 13 0RF nitrofurantoin monohyd/m-cryst [Macrobid] 100 mg capsule 100 mg PO BID Qty: 13 0RF Rx Instructions: must administer with a meal/food ondansetron HCl 4 mg tablet 4 mg PO Q6H PRN (Reason: nausea and vomiting) Qty: 7 0RF ibuprofen 600 mg tablet 600 mg PO Q6H PRN (Reason: pain) Qty: 20 0RF cefuroxime axetil 500 mg tablet 500 mg PO BID Qty: 20 0RF ondansetron 4 mg tablet,disintegrating 4 mg PO Q6-8H PRN (Reason: nausea and vomiting) Qty: 7 0RF lorazepam [Ativan] 1 mg tablet 1 mg PO BID PRN (Reason: anxiety) Qty: 20 0RF ondansetron 4 mg tablet,disintegrating 4 mg PO Q6-8H PRN (Reason: nausea and vomiting) Qty: 20 0RF ondansetron 4 mg tablet,disintegrating 4 mg PO TID PRN (Reason: nausea and vomiting) 5 Days Qty: 10 0RF Breo Ellipta 200-25 mcg/dose blister with device 1 inh inhalation DAILY clonidine HCl 0.1 mg tablet 0.1 mg PO TID hydroxyzine HCl 25 mg tablet 25 mg PO BEDTIME methylphenidate HCl [Concerta] 27 mg tablet extended release 24hr 27 mg PO DAILY Latuda 60 mg tablet 60 mg PO DAILY Rx Instructions: must administer with food (at least 350 calories) tolterodine 4 mg capsule,extended release 24hr 4 mg PO DAILY 90 Days Qty: 90 1RF Interventions: ED Discharge Assessment Last Done: 09/01/24 20:13 Discharge Date/Time: 09/01/24 20:14 Print Language: Amharic
[2024-09-01] MEDS: Acetaminophen 325 MG TABLET 975 MG PO (18:43)
[2024-09-01 19:00] LABS: UPreg QC Valid YES; Urine Pregnancy NEGATIVE (NEGATIVE)
[2024-09-01 19:15] LABS: Influenza A PCR NEGATIVE (Negative); Influenza B PCR NEGATIVE (Negative); Resp Syncy Virus RNA Qual PCR NEGATIVE (Negative); SARS COV2 PCR INHOUSE NEGATIVE (Negative)
[2024-09-01] MEDS: Ketorolac Tromethamine 30 MG/ML VIAL IM (19:54)
[2024-09-01 20:04] VITALS: BP 102/71; PULSE 78; RESP 16; TEMP 36.9; O2SAT 99
[2024-09-01] MEDS: Azithromycin 500 MG TABLET PO (20:12)
[2024-09-01 20:13] VITALS: BP 102/71; PULSE 78; RESP 16; TEMP 36.9; O2SAT 99
== END 2024-09-01 20:14 | disposition home or self-care (01) ==
PROVIDERS: Emergency Provider Emergency Medicine; PCP Nurse Practitioner Primary Care
DX: J18.8 Other pneumonia, unspecified organism (principal); M54.50 Low back pain, unspecified; Z03.818 Encounter for observation for suspected exposure to other biological agents ruled out; J45.909 Unspecified asthma, uncomplicated
CPT/HCPCS: 0241U; 71046; 72100; 81025; 96372; 99284; J1885

== ENCOUNTER 2025-01-03 16:42 | Emergency (ER) | payer MEDICAID, SELFPAY ==
[2025-01-03 17:11] VITALS: BP 106/57; PULSE 73; RESP 17; TEMP 36.6; O2SAT 95; BMI 38.4
--- NOTE | 2025-01-03 17:11 | ED_ITS ---
HPI - General Adult General Chief complaint: General Medical Stated complaint: flu like symptoms Time Seen by Provider: 01/03/25 22:02 Related Data Home Medications ?Medication ?Instructions ?Recorded ?Confirmed clonidine HCl 0.1 mg tablet 0.1 mg PO TID 09/25/20 11/20/20 fluticasone furoate 200 1 inh inhalation DAILY 09/25/20 11/20/20 mcg-vilanterol 25 mcg/dose inhalation powder (Breo Ellipta) hydroxyzine HCl 25 mg tablet 25 mg PO BEDTIME 09/25/20 11/20/20 lurasidone 60 mg tablet (Latuda) 60 mg PO DAILY 09/25/20 11/20/20 methylphenidate HCl 27 mg 27 mg PO DAILY 09/25/20 11/20/20 tablet,extended release 24 hr (Concerta) Previous Rx's ?Medication ?Instructions ?Recorded albuterol sulfate 90 mcg/actuation 2 puff inhalation Q4-6H PRN 11/20/20 aerosol inhaler (ProAir HFA) shortness of breath or wheezing #8.5 grams azithromycin 250 mg tablet 250 mg PO DAILY 5 days #6 tabs 11/20/20 (Zithromax Z-Yogesh) doxycycline monohydrate 100 mg 100 mg PO BID 10 days #20 caps 11/20/20 capsule prednisone 20 mg tablet 60 mg (3 x 20 mg) PO DAILY 5 days 11/20/20 #15 tabs tolterodine 4 mg capsule,extended 4 mg PO DAILY 90 days #90 caps 01/15/21 release 24 hr cyclobenzaprine 5 mg tablet 5 mg PO TID PRN muscle spasm #14 02/25/21 tabs ibuprofen 800 mg tablet 800 mg PO Q8H PRN pain #30 tabs 02/25/21 lidocaine 4 % topical patch 1 patch topical Q24H PRN pain #15 02/25/21 ea azithromycin 250 mg tablet See Rx Instructions PO .COMPLEX #6 07/18/21 (Zithromax Z-Yogesh) tabs omeprazole magnesium 20 mg 20 mg PO BID #30 tabs 07/18/21 tablet,delayed release (Prilosec OTC) omeprazole 20 mg tablet,delayed 20 mg PO DAILY #30 tabs 07/20/21 release albuterol sulfate 90 mcg/actuation 2 puff inhalation Q4-6H PRN 10/23/21 aerosol inhaler shortness of breath or wheezing #8.5 grams ondansetron 4 mg disintegrating 4 mg PO Q8H #6 tabs 10/23/21 tablet doxycycline hyclate 100 mg capsule 100 mg PO DAILY #13 caps 01/09/22 nitrofurantoin 100 mg PO BID #13 caps 01/09/22 monohydrate/macrocrystals 100 mg capsule (Macrobid) ondansetron HCl 4 mg tablet 4 mg PO Q6H PRN nausea and 01/09/22 vomiting #7 tabs cefuroxime axetil 500 mg tablet 500 mg PO BID #20 tabs 04/12/22 ibuprofen 600 mg tablet 600 mg PO Q6H PRN pain #20 tabs 04/12/22 ondansetron 4 mg disintegrating 4 mg PO Q6-8H PRN nausea and 04/12/22 tablet vomiting #7 tabs lorazepam 1 mg tablet (Ativan) 1 mg PO BID PRN anxiety #20 tabs 06/13/22 ondansetron 4 mg disintegrating 4 mg PO Q6-8H PRN nausea and 06/13/22 tablet vomiting #20 tabs ondansetron 4 mg disintegrating 4 mg PO TID PRN nausea and 05/05/24 tablet vomiting 5 days #10 tabs azithromycin 250 mg tablet 250 mg PO DAILY 4 days #4 tabs 09/01/24 cyclobenzaprine 10 mg tablet 10 mg PO TID PRN muscle spasm #12 09/01/24 tabs ibuprofen 600 mg tablet 600 mg PO TID PRN pain #14 tabs 09/01/24 Allergies Allergy/AdvReac Type Severity Reaction Status Date / Time amoxicillin [AMOXICILLIN] Allergy Unknown VOMITING Verified 01/03/25 17:13 pollen extracts [POLLEN] Allergy Unknown ITCHY EYES Verified 01/03/25 17:13 [facility] Past Medical History Medical History Insomnia ADHD Borderline personality disorder Depression PTSD (post-traumatic stress disorder) Bipolar 1 disorder DAX (obstructive sleep apnea) Asthma Allergic rhinosinusitis Surgical History History of oral surgery Hx of adenoidectomy Hx of tonsillectomy Social History Social History Alcohol intake: never Substance Use Type: Marijuana Advance Directives: No Advance Directives Information Provided: Yes Do you have a plan to hurt others: No Plan Physical Exam ED Vital Signs: Vital Signs - 24 hr 01/03/25 17:11 01/03/25 21:19 Temperature 98 F 98.3 F Pulse Rate 73 73 Respiratory Rate 17 20 Blood Pressure 106/57 L 128/65 Pulse Oximetry 95 99 Oxygen Delivery Method Room Air Room Air BMI result Body Mass Index 38.4 Course Course Course Narrative: RME, this is a rapid medical exam performed by Jonathan Donahue please refer to primary provider for complete H&P- 34-year-old female presents for evaluation of weakness, body aches, abdominal pain after eating. Her symptoms have been present for last few days. She reports that she has been out of her lithium and Seroquel for the last 5 dayl because her prescribe her symptom medication to the room pharmacy. She reports that she should be able to get her medications tomorrow. Plan for viral swabs, basic labs and a lithium level Reevaluation(s) Reevaluation #1: The patient was brought into a hallway bed in the emergency department, she just became quite hostile and belligerent, yelling and cursing at staff because she has yet to be seen, she was walking out without completing her assessment, or receiving treatment. Medical Decision Making Lab Data 01/03/25 17:40 01/03/25 17:40 Labs: Lab Results 01/03/25 Range/Units 17:40 WBC 6.9 (4.8-10.8) X10*3/uL RBC 4.23 (4.20-5.50) X10*6/uL Hgb 13.2 (12.0-16.0) g/dl Hct 39.5 (37.0-47.0) % MCV 93.4 (80.0-98.0) fL MCH 31.2 (27.0-33.0) pg MCHC 33.4 (31.0-35.0) g/dl RDW 13.0 (11.0-16.0) % Plt Count 256 (160-400) X10*3/uL MPV 10.6 (9.4-12.3) fL Immature Gran % (Auto) 0.4 (0.0-0.4) % Neut % (Auto) 56.5 (45-73) % Lymph % (Auto) 31.1 (20-40) % [place] % (Auto) 9.2 (2-11) % Eos % (Auto) 1.9 (0-4) % Baso % (Auto) 0.9 (0-2) % Lymph # (Auto) 2.2 (1.2-4.9) X10*3/uL [place] # (Auto) 0.6 (0.1-1.2) X10*3/uL Eos # (Auto) 0.1 (0.0-0.4) X10*3/uL Baso # (Auto) 0.1 (0.0-0.2) X10*3/uL Abs Immat Gran (auto) 0.03 (0.00-0.03) X10*3/uL Absolute Neuts (auto) 3.9 (2.0-8.3) x10*3/uL Absolute Nucleated RBC 0.000 (0.0-0.012) X10*3/uL Nucleated RBC % (auto) 0.0 (0.0-0.2) /100WBC Sodium 141 (135-145) mmol/L Potassium 4.1 (3.3-5.1) mmol/L Chloride 111 H (96-108) mmol/L Carbon Dioxide 24 (22-29) mmol/L Anion Gap 10 L (12-20) BUN 10 (9-16) mg/dL Creatinine 0.73 (0.5-1.4) mg/dL Estim Creat Clear Calc 114.6 Estimated GFR > 60 Random Glucose 100 (60-115) mg/dL Calcium 9.2 D (8.4-10.2) mg/dL Total Bilirubin 0.7 (0.0-1.0) mg/dL AST 24 (5-31) U/L ALT 27 (0-31) U/L Alkaline Phosphatase 92 (39-117) U/L Total Protein 7.4 (6.5-8.0) g/dL Albumin 4.2 (3.5-5.0) g/dL Lipase 8 (8-78) U/L [place] < 0.10 L (0.60-1.20) mmol/L Influenza Type A (PCR) NEGATIVE (Negative) Influenza Type B (PCR) NEGATIVE (Negative) RSV RNA Qual (PCR) NEGATIVE (Negative) SARS-CoV-2 RNA (RT-PCR) NEGATIVE (Negative) S. pyogenes GrpA AVTAR Negative (Negative) Discharge Plan Discharge Clinical Impression: Abdominal pain Patient Disposition: Left Without Being Seen Prescriptions: No Action lidocaine 4 % adhesive patch,medicated 1 patch topical Q24H PRN (Reason: pain) Qty: 15 0RF Rx Instructions: may leave on for up to 12 hrs ibuprofen 800 mg tablet 800 mg PO Q8H PRN (Reason: pain) Qty: 30 0RF cyclobenzaprine 5 mg tablet 5 mg PO TID PRN (Reason: muscle spasm) Qty: 14 0RF azithromycin [Zithromax Z-Yogesh] 250 mg tablet 250 mg PO DAILY 5 Days Qty: 6 0RF doxycycline monohydrate 100 mg capsule 100 mg PO BID 10 Days Qty: 20 0RF prednisone 20 mg tablet 60 mg PO DAILY 5 Days Qty: 15 0RF albuterol sulfate [ProAir HFA] 90 mcg/actuation HFA aerosol inhaler 2 puff inhalation Q4-6H PRN (Reason: shortness of breath or wheezing) Qty: 8.5 0RF azithromycin [Zithromax Z-Yogesh] 250 mg tablet See Rx Instructions .ROUTE .COMPLEX Qty: 6 0RF Rx Instructions: take 500 mg today (day 1), then 250 mg for 4 days (days 2-5) omeprazole magnesium [Prilosec OTC] 20 mg tablet,delayed release (DR/EC) 20 mg PO BID Qty: 30 0RF ondansetron 4 mg tablet,disintegrating 4 mg PO Q8H Qty: 6 0RF albuterol sulfate 90 mcg/actuation HFA aerosol inhaler 2 puff inhalation Q4-6H PRN (Reason: shortness of breath or wheezing) Qty: 8.5 0RF omeprazole 20 mg tablet,delayed release (DR/EC) 20 mg PO DAILY Qty: 30 0RF doxycycline hyclate 100 mg capsule 100 mg PO DAILY Qty: 13 0RF nitrofurantoin monohyd/m-cryst [Macrobid] 100 mg capsule 100 mg PO BID Qty: 13 0RF Rx Instructions: must administer with a meal/food ondansetron HCl 4 mg tablet 4 mg PO Q6H PRN (Reason: nausea and vomiting) Qty: 7 0RF ibuprofen 600 mg tablet 600 mg PO Q6H PRN (Reason: pain) Qty: 20 0RF cefuroxime axetil 500 mg tablet 500 mg PO BID Qty: 20 0RF ondansetron 4 mg tablet,disintegrating 4 mg PO Q6-8H PRN (Reason: nausea and vomiting) Qty: 7 0RF lorazepam [Ativan] 1 mg tablet 1 mg PO BID PRN (Reason: anxiety) Qty: 20 0RF ondansetron 4 mg tablet,disintegrating 4 mg PO Q6-8H PRN (Reason: nausea and vomiting) Qty: 20 0RF ondansetron 4 mg tablet,disintegrating 4 mg PO TID PRN (Reason: nausea and vomiting) 5 Days Qty: 10 0RF azithromycin 250 mg tablet 250 mg PO DAILY 4 Days Qty: 4 0RF Rx Instructions: start on day 2 of therapy ibuprofen 600 mg tablet 600 mg PO TID PRN (Reason: pain) Qty: 14 0RF cyclobenzaprine 10 mg tablet 10 mg PO TID PRN (Reason: muscle spasm) Qty: 12 0RF Breo Ellipta 200-25 mcg/dose blister with device 1 inh inhalation DAILY clonidine HCl 0.1 mg tablet 0.1 mg PO TID hydroxyzine HCl 25 mg tablet 25 mg PO BEDTIME methylphenidate HCl [Concerta] 27 mg tablet extended release 24hr 27 mg PO DAILY Latuda 60 mg tablet 60 mg PO DAILY Rx Instructions: must administer with food (at least 350 calories) tolterodine 4 mg capsule,extended release 24hr 4 mg PO DAILY 90 Days Qty: 90 1RF Print Language: Japanese
[2025-01-03 17:46] LABS: MANUAL DIFF FLAG NO
[2025-01-03 17:50] LABS: Basophils Absolute Auto 0.1 X10*3/uL (0.0-0.2); Basophils Percent Auto 0.9 % (0-2); Eosinophils Absolute Auto 0.1 X10*3/uL (0.0-0.4); Eosinophils Percent Auto 1.9 % (0-4); Hematocrit 39.5 % (37.0-47.0); Hemoglobin 13.2 g/dl (12.0-16.0); Imm Gran Abs Auto 0.03 X10*3/uL (0.00-0.03); Imm Gran Pct Auto 0.4 % (0.0-0.4); Lymphocytes Absolute Auto 2.2 X10*3/uL (1.2-4.9); Lymphocytes Percent Auto 31.1 % (20-40); Mean Corpuscular HGB Conc 33.4 g/dl (31.0-35.0); Mean Corpuscular Hemoglobin 31.2 pg (27.0-33.0); Mean Corpuscular Volume 93.4 fL (80.0-98.0); Mean Platelet Volume 10.6 fL (9.4-12.3); Monocytes Absolute Auto 0.6 X10*3/uL (0.1-1.2); Monocytes Percent Auto 9.2 % (2-11); Neutrophils Absolute Auto 3.9 x10*3/uL (2.0-8.3); Neutrophils Percent Auto 56.5 % (45-73); Platelet Count 256 X10*3/uL (160-400); Red Blood Count 4.23 X10*6/uL (4.20-5.50); White Blood Count 6.9 X10*3/uL (4.8-10.8)
[2025-01-03 17:55] LABS: IDNOW Serial# 08D9AD1C; Strep A Nucleic Acid Negative (Negative)
[2025-01-03 17:57] LABS: Lithium < 0.10 mmol/L (0.60-1.20)
[2025-01-03 18:05] LABS: Alanine Aminotransferase 27 U/L (0-31); Albumin Level 4.2 g/dL (3.5-5.0); Anion Gap 10 (12-20); Aspartate Amino Transferase 24 U/L (5-31); Bilirubin Total 0.7 mg/dL (0.0-1.0); Blood Urea Nitrogen 10 mg/dL (9-16); Calcium 9.2 mg/dL (8.4-10.2); Carbon Dioxide 24 mmol/L (22-29); Chloride 111 mmol/L (96-108); Creatinine Clr Calc Pharmacy 114.6; Estimated Glomerular Filt Rate > 60; Glucose Random 100 mg/dL (60-115); Potassium 4.1 mmol/L (3.3-5.1); Sodium 141 mmol/L (135-145); Total Protein 7.4 g/dL (6.5-8.0)
[2025-01-03 18:06] LABS: Alkaline Phosphatase 92 U/L (39-117); Lipase 8 U/L (8-78)
[2025-01-03 18:28] LABS: Influenza A PCR NEGATIVE (Negative); Influenza B PCR NEGATIVE (Negative); Resp Syncy Virus RNA Qual PCR NEGATIVE (Negative); SARS COV2 PCR INHOUSE NEGATIVE (Negative)
[2025-01-03 21:19] VITALS: BP 128/65; PULSE 73; RESP 20; TEMP 36.8; O2SAT 99
--- OUTSIDE RECORDS SUMMARY | 2025-01-03 21:36 | XMS_ITS | Encounter Summary ---
Author Organization [employer] Address [address] [place] [address] Care Team Providers Care Poured Concrete Wall Technician Name Role Phone Lavonne Sheppard Primary Care Provider [phone] Reason for Visit * Reason Onset Date Comments March Recall 12/26/2024 Encounter Details Date Type Department Care Team ([facility] st Contact Info) Description 12/26/2024 Telephone [facility] [address] [place] [address] Lavonne Sheppard ANP [address] [place] [address] March Recall Social History Tobacco Use Types Packs/Day Years Used Date Smoking Tobacco: Never Passive Smoke Exposure: Never Smokeless Tobacco: Never Alcohol Use Standard Drinks/Week Comments Not Currently 0 (1 standard drink = 0.6 oz pur e alcohol) Depression Answer Date Recorded Patient Health Questionnaire-9 Score 9 09/25/2024 Patient Health Questionnaire-9 Score 9 09/25/2024 Last PHQ-9: Questionnaire Data Not on file 1 11/26/2023 Housing Stability Answer Date Recorded What is your housing situation today? I have denisse holloway 09/12/[address] you li ve. Do you have problems with any of the following? None of the above 09/12/2024 Food Insecurity Answer Date Recorded Within the past 12 months, y ou worried that your food would run out before you got money to buy more: Never True 09/12/2024 Within the past 12 months,th e food you bought just didn't last and you didn't have enough money to get more: Never True Transportation Answer Date Recorded In the past 12 months, has l ack of transportation kept you from medical appts, meetings, work or from getting things needed for daily living? Yes, it has kept me from medical appointments or getting medications. 09/12/2024 Utilities Answer Date Recorded In the past 12 months, has t he electric, gas, oil or water company threatened to shut off services in your home? No 09/12/2024 Depression Answer Date Recorded Patient Health Questionnaire-2 Score 2 09/25/2024 Internet Access Answer Date Recorded Internet Access Q1 Yes 09/12/2024 Internet Access Q2 Not on file 09/12/2024 Comments Unknown Sex and Gender Information Value Date Recorded Sex Assigned at Female 08/24/2022 10:16 AM EDT Legal Sex Female 10:16 AM EDT Gender Identity Female 08/24/2022 10:16 AM EDT Sexual Orientation Choose not to disclose 2021 10:16 AM EDT documented as of this encounter Miscellaneous Notes * Telephone Encounter - Romi Escobedo [place] - 12/26/2024 1:10 PM EST Telephone call to patient to schedule the following recall: Visit type: Office visit Appointment notes: f/u back pain Patient agree to appointment at 2:15 PM with Valarie. documented in this encounter Plan of Treatment Upcoming Encounters Date Type Department Care Team (Late st Contact Info) Description 03/27/2025 2:15 PM EDT Office Visit [facility] [address] [place] [address] Lavonne Sheppard ANP [address] [place] [address] 05/03/2025 3:00 PM EDT Office Visit [facility] D[facility] [address] [place] [address] Marisela Machado documented as of this encounter Goals Goal Patient Goal Type Associated Problems Recent Progress Patient-Stated? Author Patient will adhere to medication regimen General No Mona Coles Keep your medical appointments Lifestyle No Mona Coles documented as of this encounter Visit Diagnoses Not on filedocumented in this encounter Additional Health Concerns Assessment Noted Time PHQ-9 Depression Total Score: 9 09/25/20 24 4:11 PM EST documented as of this encounter Care Teams Poured Concrete Wall Technician Relationship Specialty Start Date End Date Lavonne Sheppard ANP [address] [place] [address] PCP - General Family Medicine 11/16/22 Ivory Covarrubias Manager AdvancedLetterer 07/08/23 documented as of this encounter
--- OUTSIDE RECORDS SUMMARY | 2025-01-03 21:36 | XMS_ITS | Encounter Summary ---
Author Organization [employer] Address [address] [place] [address] Care Team Providers Care Metal Melter Name Role Phone Lavonne Sheppard Primary Care Provider [phone] Encounter Details Date Type Department Care Team (Late st Contact Info) Description 01/03/2025 Orders Only GENERIC EXTERNAL DATA DEPARTMENT Provider, Generic External Data Social History Tobacco Use Types Packs/Day Years [...] is your housing situation today? I have denisseeliecer holloway 09/12/[address] you [...] AM EDT documented as of this encounter Plan of Treatment Upcoming Encounters Date Type Department Care Team (Late st Contact Info) Description 03/27/2025 2:15 PM EDT Office Visit [facility] [address] [place], [place] [phone] Lavonne Sheppard ANP [address] [place] [address] 05/03/2025 3:00 PM EDT Office Visit [facility] ADULT DENTAL [address] [place] [address] Marisela Machado documented as of this encounter Goals Goal Patient Goal Type Associated Problems Recent Progress Patient-Stated? Author Patient will adhere to medication regimen General Mona Ochoa Keep your medical appointments Lifestyle Mona Ochoa documented as of this encounter Procedures Procedure Name Priority Date/Time Associated Diagnosis Comments STREP A NUCLEIC ACID Routine 01/03/2025 5:40 PM EDT SARS COV2/INFLUENZA A/B AND RSV RNA QL NAAT Routine 01/03/2025 5:40 PM EDT CBC WITH AUTO DIFFERENTIAL Routine 01/03/2025 5:40 PM EDT LIPASE Routine 01/03/2025 5:40 PM EDT LITHIUM Routine 01/03/2025 5:40 PM EDT COMPREHENSIVE METABOLIC PANEL Routine 01/03/2025 5:40 PM EDT documented in this encounter Results * SARS-CoV-2 RNA, Influenza A/B, and RSV RNA, Ql NAAT (01/03/2025 5:40 PM EDT) Influenza A PCR NEGATIVE Negative [facility] Influenza B PCR NEGATIVE Negative [facility] Resp Syncy Virus RNA Qual PCR NEGATIVE Negative [facility] SARS COV2 PCR NEGATIVE Negative [facility] Comment:All test results mus t be correlated with clinical findings.Negative results do not preclude SARS-CoV2, influenza Avirus, influenza B virus and/or RSV infectionand should not be used as the sole basis for treatment orother patient management decisions. Negative results must becombined with clinical observations, patient history, andepidemiological information.This test has not been evaluated for monitoring treatment ofinfection.This test has been authorized by the FDA under an EmergencyUse Authorization (EUA) for use by authorized laboratories.Testing performed on the Tele[employer] GeneXpert utilizingreal-time RT-PCR.All SARS CoV2 and positive influenza A/B results arereported to [facility]. 01/03/2025 5:40 PM EDT 01/03/2025 5:45 PM EDT Generic External Data Provider LAB MICROBIOLOGY - GENERAL ORDERABLES Final Result Performing Organization Address [facility]/ZIP Co de Phone Number [facility] [address] [place] [phone] * Lipase (01/03/2025 5:40 PM EDT) Lipase 8 8 - 78 U/L [facility] 01/03/2025 5:40 PM EDT 01/03/2025 5:45 PM EDT Generic External Data Provider LAB BLOOD ORDERAB LES Final Result Performing Organization Address [facility]/ZIP Co de Phone Number [facility] [address] [place] [phone] * (ABNORMAL) Comprehensive Metabolic Panel (01/03/2025 5:40 PM EDT) Sodium 141 135 - 145 mmol/L [facility] Potassium 4.1 3.3 - 5.1 mmol/L [facility] Chloride 111(H) 96 - 108 mmol/L [facility] Carbon Dioxide 24 22 - 29 mmol/L [facility] Anion Gap 10(L) 12 - 20 [facility] Urea Nitrogen (BUN) 10 9 - 16 mg/dL [facility] Creatinine, Serum 0.73 0.5 - 1.4 mg/dL [facility] Creatinine Clr Calc Pharmacy 114.6 [facility] Comment:Provided height and weight: 157.48 cm,95.254 kg.eGFR (calculated from the MDRD study equation) and eCrCl(calculated from the Cockcroft-Gault equation) are based ondifferent parameters and may not yield comparable results.If eCrCl result is absurd, please check patient'sheight/weight. Estimated Glomerular Filt Rate >60 [facility] Comment:Chronic Kidney Disea se: Estimated GFR < 60 mL/min/[id number] Kidney Disease: Estimated GFR < 15 mL/min/1.73m2 Glucose 100 60 - 115 mg/dL [facility] Calcium 9.2 8.4 - 10.2 mg/dL [facility] Bilirubin, Total 0.7 0.0 - 1.0 mg/dL [facility] Aspartate Amino Transferase 24 5 - 31 U/L [facility] Alanine Aminotransferase 27 0 - 31 U/L [facility] Total Protein 7.4 6.5 - 8.0 g/dL [facility] Albumin Level 4.2 3.5 - 5.0 g/dL [facility] Alkaline Phosphatase 92 39 - 117 U/L [facility] 01/03/2025 5:40 PM EDT 01/03/2025 5:45 PM EDT us Generic External Data Provider LAB BLOOD ORDERAB LES Final Result [facility] [address] [place] [phone] [phone] * (ABNORMAL) [place] (01/03/2025 5:40 PM EDT) [facility] [place] <0.10(L) 0.60 - 1.20 mmol/L [facility] 01/03/2025 5:40 PM EDT 01/03/2025 5:45 PM EDT Generic External Data Provider LAB BLOOD ORDERAB LES Final Result Performing Organization Address [facility] Co de Phone Number [facility] [address] [place] [phone] * Strep A Nucleic Acid (01/03/2025 5:40 PM EDT) [facility] IDNOW SERIAL# [id number] [facility] Strep A Nucleic Acid Negative Negative [facility] Comment:All test results mus t be correlated with clinical findings.This test has not been evaluated for monitoring treatment ofinfection.Additional follow-up testing using the culture method isrequired if the result is negative and clinical symptomspersist, or in the event of an acute rheumatic feveroutbreak. 01/03/2025 5:40 PM EDT 01/03/2025 5:45 PM EDT Generic External Data Provider LAB MICROBIOLOGY - GENERAL ORDERABLES Final Result Performing Organization Address [facility]/ZIP Co de Phone Number [facility] [address] [place] [phone] * CBC auto differential (01/03/2025 5:40 PM EDT) [facility] White Blood Count 6.9 4.8 - 10.8 X10*3/uL [facility] Red Blood Count 4.23 4.20 - 5.50 X10*6/uL [facility] Hemoglobin 13.2 12.0 - 16.0 g/dl [facility] Hematocrit 39.5 37.0 - 47.0 % [facility] Mean Corpuscular Volume 93.4 80.0 - 98.0 fL [facility] Mean Corpuscular Hemoglobin 31.2 27.0 - 33.0 pg [facility] Mean Corpuscular HGB Conc 33.4 31.0 - 35.0 g/dl [facility] Red Cell Distribution Width 13.0 11.0 - 16.0 % [facility] Platelet Count 256 160 - 400 X10*3/uL [facility] Mean Platelet Volume 10.6 9.4 - 12.3 fL [facility] Neutrophils Percent Auto 56.5 45 - 73 % [facility] Imm Gran Pct Auto 0.4 0.0 - 0.4 % [facility] Lymphocytes Percent Auto 31.1 20 - 40 % [facility] Monocytes Percent Auto 9.2 2 - 11 % [facility] Eosinophils Percent Auto 1.9 0 - 4 % [facility] Basophils Percent Auto 0.9 0 - 2 % [facility] NRBC Pct Auto 0.0 0.0 - 0.2 /100WBC [facility] Neutrophils Absolute Auto 3.9 2.0 - 8.3 x10*3/uL [facility] Imm Gran Abs Auto 0.03 0.00 - 0.03 X10*3/uL [facility] Lymphocytes Absolute Auto 2.2 1.2 - 4.9 X10*3/uL [facility] Monocytes Absolute Auto 0.6 0.1 - 1.2 X10*3/uL [facility] Eosinophils Absolute Auto 0.1 0.0 - 0.4 X10*3/uL [facility] Basophils Absolute Auto 0.1 0.0 - 0.2 X10*3/uL [facility] NRBC Abs Auto 0.000 0.0 - 0.012 X10*3/uL [facility] 01/03/2025 5:40 PM EDT 01/03/2025 5:45 PM EDT us Generic External Data Provider LAB BLOOD ORDERAB LES Final Result [facility] [address] [place] [phone] documented in this encounter Visit Diagnoses Not on filedocumented in this encounter Additional Health Concerns Assessment Noted Time PHQ-9 Depression Total Score: 9 09/25/20 24 4:11 PM EST documented as of this encounter Care Teams Metal Melter Relationship Specialty Start Date End Date Lavonne Sheppard ANP [address] [place] [address] PCP - General Family Medicine 11/16/22 Ivory Covarrubias [employer] Console Operator TrackNeuropsychology Director 07/08/23 documented as of this encounter
--- OUTSIDE RECORDS SUMMARY | 2025-01-03 21:36 | XMS_ITS | Encounter Summary ---
Author Organization [employer] Address [address] [facility] [address] [place] [address] Care Team Providers Care Senior Project Leader/Team Lead Name Role Phone Lavonne Sheppard CHIP Primary Care Provider [phone] Reason for Visit * Reason Comments Med Refill Encounter Details Date Type Department Care Team ([facility] st Contact Info) Description 09/04/2024 Refill [facility] [address] [place] [address] Rosa Robles MD [address] [place] [address] Social History Tobacco Use Types Packs/Day Years Used Date Smoking Tobacco: Never Passive Smoke Exposure: Never Smokeless Tobacco: Never Alcohol Use Standard Drinks/Week Comments Not Currently 0 (1 standard drink = 0.6 oz pur e alcohol) Depression Answer Date Recorded Patient Health Questionnaire-9 Score 14 07/05/2023 Housing Stability Answer Date Recorded What is your housing situation today? I have denisse holloway 08/11/[address] you li ve. Do you have problems with any of the following? None of the above 08/11/2023 Food Insecurity Answer Date Recorded Within the past 12 months, y ou worried that your food would run out before you got money to buy more: Never True 08/11/2023 Within the past 12 months,th e food you bought just didn't last and you didn't have enough money to get more: Never True Transportation Answer Date Recorded In the past 12 months, has l ack of transportation kept you from medical appts, meetings, work or from getting things needed for daily living? No 08/11/2023 Utilities Answer Date Recorded In the past 12 months, has t he electric, gas, oil or water company threatened to shut off services in your home? No 08/11/2023 Depression Answer Date Recorded Patient Health Questionnaire-2 Score 2 07/05/2023 Comments Unknown Sex and Gender Information Value [...] Description 03/27/2025 2:15 PM EDT Office Visit [facility] [address] [place] [address] Lavonne Sheppard ANP [address] [place] [address] 05/03/2025 3:00 PM EDT Office Visit [facility] [address] [place] [address] Marisela Machado documented as of this encounter Goals Goal Patient Goal Type Associated Problems Recent Progress Patient-Stated? Author Patient will adhere to medication regimen General No Mona Coles Keep your medical appointments Lifestyle No Mona Coles documented as of this encounter Visit Diagnoses Not on filedocumented in this encounter Additional Health Concerns Assessment Noted Time PHQ-9 Depression Total Score: 14 023 2:09 PM EDT documented as of this encounter Care Teams Senior Project Leader/Team Lead Relationship Specialty Start Date End Date Lavonne Sheppard ANP [address] [place] [id number] PCP - General Family Medicine 11/16/22 Ivory Covarrubias ShuttlerRubber Goods Cutter Finisher 07/08/23 documented as of this encounter
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
--- OUTSIDE RECORDS SUMMARY | 2025-01-03 21:36 | XMS_ITS | Encounter Summary ---
Author Organization [employer] Address [address] [facility] 7[address] [place] [address] Care Team Providers Care Solutions Manager Name Role Phone Lavonne Sheppard CHIP Primary Care Provider [phone] Reason for Visit * Reason Comments Dental Pain Pt came in as an kavin rgency with pain on her upper eft side for the pass few days. Panorex taken Encounter Details Date Type Department Care Team (Late st Contact Info) Description 12/04/2024 1:00 PM EST Office Visit [facility] [address] [place] [address] Darrell Faria DDS [address] [place] [address] Inflamed gum (Primary Dx) Social History Tobacco Use Types Packs/Day Years [...] AM EDT documented as of this encounter Progress Notes * Darrell Faria DDS - 12/04/2024 1:00 PM EST Dental procedures in this visit D0140 - LIMITED ORAL EVALUATION - PROBLEM FOCUSED (Completed) Service provider: Darrell Faria DDS Billing provider: Darrell Faria DDS [id number] - ADJUNCTIVE GENERAL SERVICES - PROFESSIONAL VISITS - CASE PRESENTATION, SUBSEQUENT TO DETAILED AND EXTENSIVE TREATMENT PLANNING (Completed) Service provider: Darrell Faria DDS Billpeggy provider: Darrell Faria DDS [id number] - PANORAMIC RADIOGRAPHIC IMAGE (Completed) Service provider: Darrell Faria DDS Billing provider: Darrell Faria DDS Patient ID: Mady Ruelas is a 34 y.o. female. Time Out: No data recorded Location: [facility] Tooth: Maxilla and #14 Procedure: X-rays and Emergency Verified the above with patient, insurance underwriting assistant, and provider. Confirmed via patient's chart, intraorally and by radiographs. Patient Services Coordinator: not applicable Chief Complaint Patient presents with Dental Pain Pt came in as an emergency with pain on her upper eft side for the pass few days. Panorex taken Medical Hx: Vitals: There were no vitals taken for this visit. Past Medical History: Diagnosis Date Asthma Medications: Outpatient Encounter Medications as of 12/04/2024 Medication Sig Dispense Refill acetaminophen (Tylenol) 500 MG tablet Take 1 tablet (500 mg) by mouth every 6 (six) hours if neededfor mild pain for up to 20 doses. 20 tablet 0 albuterol (2.5 MG/3ML) 0.083% nebulizer solution Take 3 mL (2.5 mg) by nebulization 3 times daily. 75 mL 11 Breo Ellipta 200-25 MCG/ACT aerosol powder INHALE 1 PUFF BY MOUTH EVERY MORNING 60 each 11 cetirizine (ZyrTEC) 10 MG tablet TAKE 1 TABLET BY MOUTH EVERY MORNING 90 tablet 1 chlorhexidine (Peridex) 0.12 % solution Swish 15 mL morning and night for 1 minute. Spit, do not swallow. Do not eat or drink for 30 minutes following use. 473 mL 0 cyclobenzaprine (Flexeril) 5 MG tablet TAKE 1 TABLET BY MOUTH EVERY DAY AT BEDTIME FOR MUSCLE SPASMS 30 tablet 0 fluticasone (Flonase) 50 MCG/ACT nasal spray INSTILL 2 SPRAYS IN EACH NOSTRIL ONCE DAILY IN THE MORNING 48 g 0 hydrOXYzine pamoate (Vistaril) 50 MG capsule Take 1 capsule (50 mg) by mouth if needed at bedtime for itching. 30 capsule 2 lithium ER (Lithobid) 300 MG 12 hr tablet TAKE 1 TABLET BY MOUTH TWICE A DAY DIRECTED montelukast (Singulair) 10 MG tablet TAKE 1 TABLET BY MOUTH AT BEDTIME 90 tablet 1 QUEtiapine (SEROquel) 50 MG tablet Take 50 mg by mouth at bedtime. triamcinolone (Kenalog) 0.1 % cream Apply topically 2 times daily. 30 g 1 Ventolin HFA 108 (90 Base) MCG/ACT inhaler INHALE 2 PUFFS BY MOUTH FOUR TIMES DAILY 18 g 1 No facility-administered encounter medications on file as of 12/04/2024. Subjective: Pain: constant # 14 Duration: > 3 days Objective: Tooth: #14 Radiographs Taken: Panoramic Radiographic Findings: Decay and missing and misaligned teeth Clinical Findings: Impacted food, carious teeth # 21 Swelling: Tenderness and Intraoral swelling Endo Testing: N/A Perio: Inflamed gingiva Other Findings: Missing teeth acquired Diagnosis: Inflamed gingiva, carious lesions, missing teeth acquired Assessment/Plan: EOE X Ray Follow up with [facility] / Hygiene Prescriptions: Sent to [facility] on file Pt tolerated procedure well, all questions answered. Dismissed in good condition. NV: Exam / F/U Frit Mixer And Burner: Jyotsna Hawk Dentist: Darrell Faria DDS documented in this encounter Plan of Treatment Upcoming Encounters Date Type Department Care Team (Late st Contact Info) Description 03/27/2025 2:15 PM EDT Office Visit [facility] [address] [place] [address] Lavonne Sheppard ANP [address] [place], [place] [phone] 05/03/2025 3:00 PM EDT Office Visit [facility] [address] [place], [place] [phone] Marisela Machado documented as of this encounter Goals Goal Patient Goal Type Associated Problems Recent Progress Patient-Stated? Author Patient will adhere to medication regimen General No Mona Coles Keep your medical appointments Lifestyle No Mona Coles documented as of this encounter Procedures Procedure Name Priority Date/Time Associated Diagnosis Comments PANORAMIC RADIOGRAPHIC IMAGE Routine 12/04/2024 1:00 PM EST LIMITED ORAL EVALUATION - PROBLEM FOCUSED Routine 12/04/2024 1:00 PM EST CASE PRESENTATION, DETAILED AND EXTENSIVE TREATMENT PLANNING Routine 12/04/2024 1:00 PM EST documented in this encounter Visit Diagnoses Diagnosis Inflamed gum- Primary Chronic gingivitis, plaque induced documented in this encounter Additional Health Concerns Assessment Noted Time PHQ-9 Depression Total Score: 9 09/25/20 24 4:11 PM EST documented as of this encounter Care Teams Solutions Manager Relationship Specialty Start Date End Date Lavonne Sheppard ANP [address] [place] [phone] PCP - General Family Medicine 11/16/22 Ivory Covarrubias InletterAnalytical Research Program Manager 07/08/23 documented as of this encounter
--- OUTSIDE RECORDS SUMMARY | 2025-01-03 21:36 | XMS_ITS | Encounter Summary ---
Author Organization [employer] Address [address] [facility] [address] [place] [address] Care Team Providers Care Tape Machine Tailer Name Role Phone Lavonne Sheppard Primary Care Provider [phone] Reason for Visit * Reason Onset Date Comments Referral 10/05/2024 Encounter Details Date Type Department Care Team ([facility] st Contact Info) Description 10/05/2024 Telephone [facility] [address] [place] [address] Lavonne Sheppard ANP [address] [place] [address] Referral Social History Tobacco Use Types Packs/Day Years [...] encounter Miscellaneous Notes * Telephone Encounter - Cheyanne España RN - 10/05/2024 1:53 PM EST Telephone call returned to Ivory (resident care coordinator ICP). Inquired about gastro referral request. She reports pt with bloating and diarrhea and that it is an ongoing issue. Per OV note 09/25/24: Stomach issues: having frequent diarrhea, bloating. Does have worsening sx w/ dairy which she tries to avoid. Rec increased hydration, fiber. Has incomplete emptying. * Telephone Encounter - Eugenio France - 10/05/2024 1:20 PM EST Tc from Ivory with [facility] care Stating Pt was requesting two referrals One for Nutrion At our office and another for Gastro. If any questions contact [facility] at [phone] documented in this encounter Plan of Treatment Upcoming Encounters Date Type Department Care Team (Late st Contact Info) Description 03/27/2025 2:15 PM EDT Office Visit [facility] [address] [place] [address] Lavonne Sheppard, ANP [address] [place], [place] [phone] 05/03/2025 3:00 PM EDT Office Visit [facility] [address] [place] [address] Marisela Machado documented as of this encounter [...] documented as of this encounter Care Teams Tape Machine Tailer Relationship Specialty Start Date End Date Lavonne Sheppard ANP [address] [facility] [address] PCP - General Family Medicine 11/16/22 Ivory Covarrubias Product Development TechnicianFur Nailer 07/08/23 documented as of this encounter
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
--- NOTE | 2025-01-03 22:33 | PC.NURSE ---
this rn in room with another pt. this rn heard pt screaming and walking down the hallway. pt states to this rn this is fucking maria teresa earnestine waited too long im leaving this rn told pt a provider had signed up for her and they would be with her shortly. pt stated she was not going to wait and stormed out of the ed. Erica INIGUEZ aware.
== END 2025-01-03 22:36 | disposition left against medical advice (07) ==
PROVIDERS: Physician Assistant; Emergency Provider Emergency Medicine Emergency Medical Services; PCP Nurse Practitioner Primary Care
DX: M79.10 Myalgia, unspecified site (principal); R10.2 Pelvic and perineal pain; Z03.818 Encounter for observation for suspected exposure to other biological agents ruled out; Z79.899 Other long term (current) drug therapy
CPT/HCPCS: 0241U; 80053; 80178; 83690; 85025; 87651; 99283; 99284